=== PATIENT | female | born 1960 | race African-American/Black ===

== ENCOUNTER → 2016-05-15 | Outpatient (CLI) | payer SELFPAY | LOC: OD 12:36 | PROVIDERS: ATTEND Internal Medicine Pulmonary Disease | DX: R06.2 Wheezing (principal) | CPT/HCPCS: 36415; 82785 ==

== ENCOUNTER → 2016-05-29 | Outpatient (CLI) | payer OTHER ==
--- NOTE | 2016-05-29 11:28 | ST Modified Barium Swallow ---
Recommendation - Recommendations Recommendations: 1) Recommend continue current diet. 2) Encouraged pt to discuss "heartburn" like symptoms with primary care physician and possible medical management. SUMMARY: No penetration or aspiration observed during MBSS. No radiographic findings of pharyngeal residuals seen. Pt does report "heartburn" with need to frequently take Tums. Medical Diagnoses - Medical Diagnoses Medical Diagnosis Description & ICD-10 Code(s): cough r05, r06.83, j45.50 Other Medical Diagnoses/Co-Morbidities: asthma, diabetes, HTN, migraines ST Modified Barium Swallow - General Date: 05/29/16 Referring Physician: Dr Liao Risks/Precautions: None Date of Onset: 11/30/15 Reason for Referral: cough - History History obtained from: Patient -: Medical - Pt reports need for MBSS due to "asthma is really bad" and will wake her up in the middle of the night coughing as well as an "asthma attack" during MD visit. Pt reports coughing with meals (solids and liquids) "sometimes ", denies choking, denies globus sensation, reports most recent PNA in February of 2016, states most recent bronchitis approximately 1 year ago. Pt reports onset of symptoms approximately 6 months ago. PMHx: asthma, diabetes, HTN, osteoarthritis, migraines. Medications: per pt- duonebs, pulmicort, albuterol, metformin, singular, blood pressure pill pt could not recall. Allergies: percocet, lisinopril - Functional Status Prior Functional Status: INDEPENDENT: ADL, feeding, leisure/play Current Functional Limitations: ADL, feeding, leisure/play - Subjective Patient/caregiver goal(s): safe swallow, r/o aspiration Cognitive-Linguistic Function: WNL Speech Intelligibility: WNL Current Nutritional Means: PO Current PO diet: Regular Current symptoms: Coughing Pain: 2/5 - right knee - Objective Assessment: Upright, Left Lateral - Food Trials Used Food trials used: Thin liquids, Pureed, Regular The patient: Was Able to Self Feed - Oral-Motor Skills Dentition: Partial Velo-pharyngeal function: Unremarkable Laryngeal Function: Volitional Cough, Volitional Swallow - Assessment Oral prep: Normal Labial closure: Adequate Leakage: None Mastication: Adequate Lingual Movement: Normal Oral stage: Normal for this Procedure - Pharyngeal Stage Initiation of Pharyngeal Stage Reflex: Normal Decreased laryngeal elevation: No Reduced Velopharyngeal Closure: no Reduced pressure generation: No reduced tongue-based retraction: No Pre-swallow pooling in valleculae: None Pre-Swallow pooling in pyriforms: None Reduced Thyro-Hyoid approximation: No Reduced epiglottic excursion: No Reduced pharyngeal peristalsis/contraction: No Post-swallow residulas vallecular: None Post-Swallow residuals in pyriforms: None Reduced Cricopharyngeal opening: No - Fall Risk Assessment Medications/Conditions that increase fall risks include: Antidepressants, sedatives, anti-arrhythmic, diuretic, benzodiazipenes, neuroleptics. BP regulation problems, cardiac problems, balance or gait deficits, neurological problems. Is patient considered at risk for falls: no Fall Risk Actions Taken: No action needed - Behavioral Observations During evaluation process patient: was pleasant, was cooperative, able to answer questions, provided medical history - Treatment / Educational Needs: Treatment/Education Needs: Treatment consisted of patient education on the role of the Speech Pathologist. Patient's plan of care and golas were communicated as well as scheduling and attendance policies. Recommendations for initial home program were shared. Patient demonstrated understanding and verbalized agreement. - Impression/Summary Laryngeal Penetration: No Tracheal Aspiration: no Patient presents with: Normal swallow at eval - safe and effective swallow observed Risk of Aspiration: Minimal - Recommendations NPO: no Solid diet recommendations: Regular Liquid Diet Modification: Thin Strict aspiration precautions: No Pt/Family education and followup with MD: Yes Dysphagia therapy with [facility] COMMUNITY MANAGER: no Recommended techniques: Fully Upright During Meal Supervision: Independent Information, Precautions and Recommendations: Patient (Verbal) - Time Total Time: 20 - Plan of Care Strategies to optimize patient understanding include:: ongoing assessment of educational needs, implementation of educational strategies, and re-education. - - -: Thank you for the opportunity to work with this patient and his/her family. Should you have any questions about this patient's plan or progress, I can be reached at [phone]. Charge G Code? - - -: No
== END ==
LOC: RAD 07:59
PROVIDERS: ATTEND Internal Medicine Pulmonary Disease
DX: J45.50 Severe persistent asthma, uncomplicated (principal); R05 Cough; R06.83 Snoring
CPT/HCPCS: 74230

== ENCOUNTER → 2016-06-19 | Outpatient (CLI) | payer OTHER | LOC: OD 13:48 | PROVIDERS: ATTEND Internal Medicine | DX: M17.0 Bilateral primary osteoarthritis of knee (principal) ==

== ENCOUNTER 2016-08-01 16:00 | Emergency (ER) | payer OTHER ==
[2016-08-01] MEDS ORDERED: MAGNESIUM SULFATE/D5W 100 ML IV ONE (16:03)
[2016-08-01] MEDS ORDERED: ALBUTEROL SULFATE 0.083% NEB 2.5 MG/3 ML AMPUL NEB ONE (16:03)
[2016-08-01] MEDS ORDERED: IPRATROPIUM/ALBUTEROL 0.5-2.5 MG/3 ML AMPUL NEB ONE (16:03)
[2016-08-01] MEDS ORDERED: METHYLPREDNISOLONE INJ 125 MG/2 ML SDV IV ONE (16:04)
[2016-08-01] MEDS ORDERED: MAGNESIUM SULFATE/D5W 1 GM/100 ML RTUPB IV ONE (16:05)
[2016-08-01] MEDS ORDERED: METHYLPREDNISOLONE INJ 125 MG/2 ML SDV ONE (16:05)
[2016-08-01 16:31] LABS: ABSOLUTE EOSINOPHILS # (AUTO) 0.1 10^3/uL (0.0-0.6); ABSOLUTE LYMPHOCYTES (AUTO) 3.9 10^3/uL (0.5-4.7); ABSOLUTE MONOCYTES (AUTO) 0.4 10^3/uL (0.1-1.4); ABSOLUTE NEUT (AUTO) 2.8 10^3/uL (1.7-8.2); BASOPHILS % (AUTO) 0.4 % (0-2); EOSINOPHILS % (AUTO) 0.7 % (0-6); HEMATOCRIT 37.7 % (36.0-47.0); HGB HCT DIFFERENCE -1.7; LYMPHOCYTES % (AUTO) 54.9 % (13-45); MEAN CORPUSCULAR HEMOGLOBIN 21.6 pg (27.0-33.4); MEAN CORPUSCULAR HGB CONC 31.7 g/dL (32.0-36.0); MEAN CORPUSCULAR VOLUME 68 fl (80-97); MONOCYTES % (AUTO) 5.3 % (3-13); RED BLOOD COUNT 5.54 10^6/uL (3.72-5.28); RED CELL DISTRIBUTION WIDTH 16.4 % (11.5-14.0); SEGMENTED NEUTROPHILS % (AUTO) 38.7 % (42-78); WHITE BLOOD COUNT 7.2 10^3/uL (4.0-10.5)
[2016-08-01 16:32] LABS: VENOUS BLOOD BASE EXCESS 6.3 mmol/L; VENOUS BLOOD PCO2 39.9 mmHg (35-63); VENOUS BLOOD PH 7.49 (7.30-7.42)
[2016-08-01 16:43] LABS: ALANINE AMINOTRANSFERASE 29 U/L (9-52); ALBUMIN 4.4 g/dL (3.5-5.0); ALKALINE PHOSPHATASE 77 U/L (38-126); ANION GAP 13 (5-19); ASPARTATE AMINO TRANSFERASE 26 U/L (14-36); BILIRUBIN,DIRECT 0.4 mg/dL (0.0-0.4); BILIRUBIN,TOTAL 0.7 mg/dL (0.2-1.3); BLOOD UREA NITROGEN 17 mg/dL (7-20); CALCIUM 9.7 mg/dL (8.4-10.2); CARBON DIOXIDE 29 mmol/L (22-30); CHLORIDE 101 mmol/L (98-107); CREATININE RESULT 0.71 mg/dL (0.52-1.25); GLUCOSE 126 mg/dL (75-110); LIPASE 101.5 U/L (23-300); SODIUM 143.4 mmol/L (137-145); TOTAL PROTEIN 7.8 g/dL (6.3-8.2)
--- NOTE | 2016-08-01 17:24 | RADIOLOGY REPORT (SQ) ---
EXAM DESCRIPTION: CHEST SINGLE VIEW COMPLETED DATE/TIME: 08/01/2016 5:16 pm REASON FOR STUDY: sob COMPARISON: 06/27/2012 EXAM PARAMETERS: NUMBER OF VIEWS: One view. TECHNIQUE: Single frontal radiographic view of the chest acquired. RADIATION DOSE: NA LIMITATIONS: None. FINDINGS: LUNGS AND PLEURA: No opacities, masses or pneumothorax. No pleural effusion. MEDIASTINUM AND HILAR STRUCTURES: No masses. Contour normal. HEART AND VASCULAR STRUCTURES: Heart normal in size. Normal vasculature. BONES: No acute findings. HARDWARE: None in the chest. OTHER: No other significant finding. IMPRESSION: NO ACUTE RADIOGRAPHIC FINDING IN THE CHEST. TECHNICAL DOCUMENTATION: JOB ID: [id number]
[2016-08-01] MEDS ORDERED: PREDNISONE 20 MG TABLET PO ONE (19:08)
--- NOTE | 2016-08-01 19:12 | ER Document Report ---
ED General - General Chief Complaint: Shortness Of Breath Stated Complaint: DIFFICULTY BREATHING Time Seen by Provider: 08/01/16 16:03 TRAVEL OUTSIDE OF THE [place] IN LAST 30 DAYS: No - HPI Patient complains to provider of: Shortness of breath asthma exacerbation Notes: Patient was in the hospital performing lung functioning test when she started to have an eczema exacerbation. A rapid response was called patient was brought to the ER patient had tachypnea and audible wheezing. Patient was not having any pain time. Patient states that she has had PFT testing in the past. She has had a acute asthma exacerbation. Denies any recent travel denies any recent steroids. Denies any recent antibiotics. - Related Data Allergies/Adverse Reactions: No Known Allergies Allergy (Unverified 06/26/12 23:23) Past Medical History - Social History Smoking Status: Never Smoker Chew tobacco use (# tins/day): No Frequency of alcohol use: Rare Drug Abuse: None Family History: DM, Hypertension Pulmonary Medical History: Reports: Hx Asthma Neurological Medical History: Reports: Hx Migraine Endocrine Medical History: Reports: Hx Diabetes Mellitus Type 2 Past Surgical History: Reports: Hx Section - Immunizations Immunizations up to date: Yes Hx Diphtheria, Pertussis, Tetanus Vaccination: Yes Review of Systems - Review of Systems Constitutional: No symptoms reported EENT: No symptoms reported Cardiovascular: No symptoms reported Respiratory: Short of breath, Wheezing Gastrointestinal: No symptoms reported Genitourinary: No symptoms reported Female Genitourinary: No symptoms reported Musculoskeletal: No symptoms reported Skin: No symptoms reported Hematologic/Lymphatic: No symptoms reported Neurological/Psychological: No symptoms reported -: Yes All other systems reviewed and negative Physical Exam - Vital signs Vitals: Resp Pulse Ox 30 H 100 08/01/16 16:08 08/01/16 16:08 Interpretation: Normal - General General appearance: Appears well, Alert - HEENT Head: Normocephalic, Atraumatic Eyes: Normal Pupils: PERRL - Respiratory Respiratory status: Respiratory distress - Mild, Tachypnea Chest status: Nontender Breath sounds: Wheezing - Multiple Chest palpation: Normal - Cardiovascular Rhythm: Regular Heart sounds: Normal auscultation Murmur: No - Abdominal Inspection: Normal Distension: No distension Bowel sounds: Normal Tenderness: Nontender Organomegaly: No organomegaly - Back Back: Normal, Nontender - Extremities General upper extremity: Normal inspection, Nontender, Normal color, Normal ROM , Normal temperature General lower extremity: Normal inspection, Nontender, Normal color, Normal ROM , Normal temperature, Normal weight bearing. No: Espinoza's sign - Neurological Neuro grossly intact: Yes Cognition: Normal Orientation: AAOx4 [place] Coma Scale Eye Opening: Spontaneous [place] Coma Scale Verbal: Oriented [place] Coma Scale Motor: Obeys Commands [place] Coma Scale Total: 15 Speech: Normal Motor strength normal: LUE, RUE, LLE, RLE Sensory: Normal - Psychological Associated symptoms: Normal affect, Normal mood - Skin Skin Temperature: Warm Skin Moisture: Dry Skin Color: Normal Course - Re-evaluation Re-evalutation: 08/01/16 22:27 Patient coming in for his asthma exacerbation. Patient feeling much better after breathing treatments and steroids here. Patient states that her wheezing continues however this is how she normally is and feel that she will be safe to be discharged home. Patient was given a prescription for prednisone encouraged to follow-up with her primary care physician - Vital Signs Vital signs: Temp Pulse Resp BP Pulse Ox 21 H 148/94 H 93 08/01/16 19:06 08/01/16 19:05 08/01/16 19:06 - Laboratory Result Diagrams: 08/01/16 16:20 08/01/16 16:20 Laboratory results interpreted by me: 08/01/16 08/01/16 08/01/16 16:20 16:20 16:20 RBC 5.54 H MCV 68 L MCH 21.6 L MCHC 31.7 L RDW 16.4 H Seg Neutrophils % 38.7 L Lymphocytes % 54.9 H VBG pH 7.49 H Glucose 126 H Critical Care Note - Critical Care Note Total time excluding time spent on procedures (mins): 35 Comments: Multiple re-evaluations for asthma exacerbation Discharge - Discharge Clinical Impression: Asthma exacerbation Condition: Good Disposition: HOME, SELF-CARE Instructions: Asthma ([facility]) Additional Instructions: Your examination today is consistent with an asthma exacerbation. We will start you on prednisone. I will highly recommend using her albuterol at least every 4 hours for the next 5 days. Please follow-up with your physician. Prescriptions: Prednisone [Deltasone 20 mg Tablet] 3 tab PO DAILY 5 Days Referrals: NATALIE PORRAS MD [Primary Care Provider] - Follow up in 3-5 days
[2016-08-01 19:15] VITALS: BP 148/94
--- NOTE | 2016-08-01 20:05 | EKG REPORT ---
SEVERITY:- OTHERWISE NORMAL ECG - SINUS RHYTHM BORDERLINE LEFT AXIS DEVIATION : Confirmed by: Gaudencio Batres MD 01-Aug-2016 20:04:36
== END 2016-08-01 19:50 | disposition home or self-care (01) ==
LOC: ER 16:00
DX: J45.901 Unspecified asthma with (acute) exacerbation (principal); R06.02 Shortness of breath
CPT/HCPCS: 93005; 94640 ×2; 99291; 96375; 96365; 36415; 83690; 83735; 85025; 80053; 84484; 82803; 71010; 93010; J2930; J3475; J7620

== ENCOUNTER → 2016-08-01 | Outpatient (CLI) | payer OTHER ==
[~2016-08-01] MED LIST: ALBUTEROL SULFATE 0.083% NEB 2.5 MG/3 ML AMPUL NEB ONE
--- NOTE | 2016-08-03 08:39 | PULMONARY FUNCTION TEST ---
DATE OF SERVICE: 08/01/2016 THE VITAL CAPACITY IS MODERATELY DECREASED. THE EXPIRATORY FLOW RATES ARE SEVERELY DECREASED. THE FEV1/VC IS 62%, PREDICTED: 84% AFTER BRONCHODILATOR, EXPIRATORY FLOW RATES SHOW NO SIGNIFICANT CHANGE. IMPRESSION: GOOD PATIENT EFFORT. SEVERE OBSTRUCTIVE DEFECT. CC: VIOLET RING MD > ANURAGD
== END ==
LOC: RT 13:28
PROVIDERS: ATTEND General Practice
DX: J45.909 Unspecified asthma, uncomplicated (principal)
CPT/HCPCS: 94060

== ENCOUNTER 2016-08-15 11:16 | Inpatient (IN) | payer OTHER ==
[2016-08-15] MEDS ORDERED: IPRATROPIUM/ALBUTEROL 0.5-2.5 MG/3 ML AMPUL NEB ONE ×2 (11:24→11:44)
[2016-08-15] MEDS ORDERED: METHYLPREDNISOLONE INJ 125 MG/2 ML SDV IV ONE (11:27)
--- NOTE | 2016-08-15 11:32 | ER Document Report ---
ED Respiratory Problem - General Stated Complaint: BREATHING TROUBLES Time Seen by Provider: 08/15/16 11:26 Mode of Arrival: Ambulatory Information source: Patient Notes: 55-year-old female with history of asthma presents with increasing shortness of breath for the last 4 days. She had been seen in the emergency department in [place] 3 days ago and slightly improved but never really significantly. She is on prednisone 60 mg today. She is having cough with some purulent sputum as well. There is no fever. She is limited in history secondary to the severe shortness of breath. She does report that approximately 2 weeks ago is when symptoms started after she had an asthma exacerbation from pulmonary function tests. Any specific chest pain. TRAVEL OUTSIDE OF THE U[place] IN LAST 30 DAYS: No - Related Data Allergies/Adverse Reactions: lisinopril Allergy (Verified 08/15/16 12:25) oxycodone [From Percocet] Allergy (Verified 08/15/16 12:25) Past Medical History - Social History Smoking Status: Never Smoker Family History: DM, Hypertension Pulmonary Medical History: Reports: Hx Asthma Neurological Medical History: Reports: Hx Migraine Endocrine Medical History: Reports: Hx Diabetes Mellitus Type 2 Past Surgical History: Reports: Hx Section - Immunizations Immunizations up to date: Yes Hx Diphtheria, Pertussis, Tetanus Vaccination: Yes Review of Systems - Review of Systems -: Yes All other systems reviewed and negative Physical Exam - Vital signs Vitals: Resp Pulse Ox 22 H 96 08/15/16 11:28 08/15/16 11:28 Notes: Pulse ox 99% blood pressure 125/64 normal temperature - Notes Notes: Physical Exam: GENERAL: VS as per nursing doc. Well-appearing, well-nourished and in moderate respiratory acute distress. HEAD: Atraumatic, normocephalic. EYES: Pupils equal round and reactive to light, extraocular movements intact, sclera anicteric, no conjunctival injection or discharge. ENT: Nares patent, oropharynx clear without exudates. Moist mucous membranes. NECK: Normal range of motion, supple without lymphadenopathy. No JVD. LUNGS: Breath sounds are decreased significantly bilaterally with inspiratory and expiratory wheezing HEART: Normal S1S2. Regular rate and rhythm without murmurs. Equal peripheral pulses. ABDOMEN: Soft, non-tender. EXTREMITIES: Normal range of motion. No calf tenderness. Negative Homans. No edema. NEUROLOGICAL: Cranial nerves grossly intact. Normal speech. Normal sensory and motor exams. No gross cerebellar abnormalities. PSYCH: Normal mood, normal affect. SKIN: Warm, dry, no cyanosis, no splinter hemorrhages. Cap refill < 2 sec. Course - Re-evaluation Re-evalutation: 08/15/16 12:49 Patient is still very tachypneic overall but has improved. Magnesium has been ordered which has helped in the past. Reports only a little purulent sputum swallow discussed with her admitting doctor regarding this. He has completed her continuous nebulizer, ABG is pending. 08/15/16 14:[address] Fischer regarding admission. He is in patient's room and will call me back. 08/15/16 15:37 Dr. Osborn who will admit the patient to [facility]. Patient after continuous nebs approximately 12.5 mg total of albuterol and Atrovent has improved but still has significant wheezing overall. Breath sounds are decreased still but she has improved significantly. - Vital Signs Vital signs: Temp Pulse Resp BP Pulse Ox 11 L 131/81 H 89 L 08/15/16 14:02 08/15/16 14:02 08/15/16 14:02 - Laboratory Result Diagrams: 08/15/16 11:33 08/15/16 11:33 Laboratory results interpreted by me: 08/15/16 08/15/16 08/15/16 11:33 11:33 13:35 WBC 16.5 H Hgb 11.2 L Hct 35.7 L MCV 69 L MCH 21.5 L MCHC 31.4 L RDW 16.5 H Absolute Neutrophils 10.8 H Carbonic Acid 0.90 L ABG pH 7.62 H* ABG pCO2 29.9 L ABG pO2 68.8 L ABG HCO3 30.0 H ABG Total CO2 30.9 H Glucose 211 H Urine Ketones Urine Ascorbic Acid 08/15/16 14:40 WBC Hgb Hct MCV MCH MCHC RDW Absolute Neutrophils Carbonic Acid ABG pH ABG pCO2 ABG pO2 ABG HCO3 ABG Total CO2 Glucose Urine Ketones TRACE H Urine Ascorbic Acid 40 H - EKG Interpretation by Me EKG shows normal: Sinus rhythm - Normal sinus rhythm rate 73 no evidence of ischemia - Consults Dr. Wells Time consulted: 15:30 - Dr. Wells to admit Consulted provider: will see as inpatient Critical Care Note - Critical Care Note Total time excluding time spent on procedures (mins): 35 Discharge - Discharge Clinical Impression: Asthma exacerbation Condition: Fair Disposition: ADMITTED INPATIENT Admitting Provider: Amado Fernandez Admitted: AGNES
[2016-08-15 12:02] LABS: ABSOLUTE LYMPHOCYTES (AUTO) 4.5 10^3/uL (0.5-4.7); ABSOLUTE MONOCYTES (AUTO) 1.1 10^3/uL (0.1-1.4); ABSOLUTE NEUT (AUTO) 10.8 10^3/uL (1.7-8.2); BASOPHILS % (AUTO) 0.2 % (0-2); EOSINOPHILS % (AUTO) 0.1 % (0-6); HEMATOCRIT 35.7 % (36.0-47.0); HEMOGLOBIN 11.2 g/dL (12.0-15.5); HGB HCT DIFFERENCE -2.1; LYMPHOCYTES % (AUTO) 27.4 % (13-45); MEAN CORPUSCULAR HEMOGLOBIN 21.5 pg (27.0-33.4); MEAN CORPUSCULAR HGB CONC 31.4 g/dL (32.0-36.0); MEAN CORPUSCULAR VOLUME 69 fl (80-97); MONOCYTES % (AUTO) 6.8 % (3-13); RED BLOOD COUNT 5.21 10^6/uL (3.72-5.28); RED CELL DISTRIBUTION WIDTH 16.5 % (11.5-14.0); SEGMENTED NEUTROPHILS % (AUTO) 65.5 % (42-78); WHITE BLOOD COUNT 16.5 10^3/uL (4.0-10.5)
[2016-08-15] MEDS ORDERED: ALBUTEROL SULFATE 0.083% NEB 2.5 MG/3 ML AMPUL NEB ONE ×2 (12:09→12:12)
[2016-08-15 12:28] LABS: ANION GAP 13 (5-19); BLOOD UREA NITROGEN 16 mg/dL (7-20); CALCIUM 9.5 mg/dL (8.4-10.2); CARBON DIOXIDE 30 mmol/L (22-30); CHLORIDE 98 mmol/L (98-107); CREATININE RESULT 0.66 mg/dL (0.52-1.25); GLUCOSE 211 mg/dL (75-110); SODIUM 140.8 mmol/L (137-145)
[2016-08-15] MEDS ORDERED: MAGNESIUM SULFATE/D5W 100 ML IV PRN (12:38)
--- NOTE | 2016-08-15 12:41 | RADIOLOGY REPORT (SQ) ---
EXAM DESCRIPTION: CHEST SINGLE VIEW COMPLETED DATE/TIME: 08/15/2016 12:22 pm REASON FOR STUDY: Dyspnea COMPARISON: None. NUMBER OF VIEWS: One view. TECHNIQUE: Single frontal radiographic view of the chest acquired. LIMITATIONS: None. FINDINGS: LUNGS AND PLEURA: Subsegmental parenchymal density left lower lobe. MEDIASTINUM AND HILAR STRUCTURES: No masses. Contour normal. HEART AND VASCULAR STRUCTURES: Heart enlarged without failure. Normal vasculature. BONES: No acute findings. HARDWARE: None in the chest. OTHER: No other significant finding. IMPRESSION: Atelectasis or early pneumonia left lower lobe. Clinical correlation is needed. TECHNICAL DOCUMENTATION: JOB ID: [id number] [employer]- All Rights Reserved
[2016-08-15] MEDS ORDERED: LORAZEPAM INJ 2 MG/1 ML VIAL IV ONE (12:55)
[2016-08-15 13:58] LABS: ARTERIAL BLOOD BASE EXCESS 8.8 mmol/L; ARTERIAL BLOOD O2 SATURATION 96.5 % (94-98)
[2016-08-15 15:04] LABS: APPEARANCE,URINE CLEAR; BILIRUBIN,URINE NEGATIVE (NEGATIVE); GLUCOSE, URINE NEGATIVE (NEGATIVE); KETONES,URINE TRACE mg/dL (NEGATIVE); LEUKOCYTE ESTERASE,URINE NEGATIVE (NEGATIVE); NITRITE,URINE NEGATIVE (NEGATIVE); PROTEIN,URINE NEGATIVE (NEGATIVE); URINE SPECIFIC GRAVITY 1.015; UROBILINOGEN,URINE NEGATIVE mg/dL (<2.0)
--- NOTE | 2016-08-15 16:19 | EKG REPORT ---
SEVERITY:- NORMAL ECG - SINUS RHYTHM : Confirmed by: Mary Gabriel MD 15-Aug-2016 16:18:38
[2016-08-15] MEDS ORDERED: ACETAMINOPHEN 325 MG TABLET PO PRN (17:00)
[2016-08-15] MEDS ORDERED: ZOLPIDEM TARTRATE 5 MG TABLET PO PRN (17:00)
[2016-08-15] MEDS ORDERED: DEXTROSE 40% GEL 15 GM TUBE PO PRN (17:34)
[2016-08-15] MEDS ORDERED: GLUCAGON,HUMAN RECOMB 1 MG INJ IM PRN (17:34)
[2016-08-15] MEDS ORDERED: DEXTROSE 50%-WATER SYRINGE 25 GM/50 ML DOSE IV PRN (17:34)
[2016-08-15] MEDS ORDERED: DEXTROSE 40% GEL 15 GM TUBE X 2 PO PRN (17:34)
[2016-08-15] MEDS ORDERED: DEXTROSE 50%-WATER SYRINGE 12.5 GM/25 ML DOSE IV PRN (17:34)
--- NOTE | 2016-08-15 17:38 | PDOC H&P ---
History of Present Illness Admission Date/PCP: 08/15/16 15:48 NATALIE PORRAS Patient complains of: Severe dyspnea, wheezes, cough with sputum production- worse int he past 5 days. History of Present Illness: NOEMI ALAMO is a 55 year old female with hx of severe persistent asthma/ DM2/HTN/Tuan. 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 She satrted having cough- productive of brownish sputum, severe dyspne and wheezes. She went to ER in [place] 3 days ago and was discharged on prednisone 60 mg qd. She started having worsening of her symptoms on arrival to [place], hence she came to ER for evaluation and mgt. Past Medical History Cardiac Medical History: Reports: Hypertension Pulmonary Medical History: Reports: Asthma Neurological Medical History: Reports: Migraine Endocrine Medical History: Reports: Diabetes Mellitus Type 2 Past Surgical History Past Surgical History: Reports: Section Social History Smoking Status: Never Smoker - Advance Directive Resuscitation Status: Full Code Family History Family History: DM, Hypertension Parental Family History Reviewed: Yes Children Family History Reviewed: Yes Sibling(s) Family History Reviewed.: Yes Medication/Allergy Home Medications: Acetaminophen with Codeine [Tylenol #3 Tablet] 1 tab PO Q12HP PRN 08/15/16 Albuterol Sulfate [Ventolin Hfa] 2 puff IH Q4HP PRN 08/15/16 Budesonide [Pulmicort Neb 0.5 mg/2 ml Ampul] 2 ml IH QPM 08/15/16 Budesonide/Formoterol Fumarate [Symbicort HFA 160-4.5 mcg Inhaler 6 gm] 2 puff IH Q12 08/15/16 Cholecalciferol (Vitamin D3) [Vitamin D3 2000 unit Tablet] 2,000 unit PO QPM 09/24 Cyclobenzaprine HCl [Flexeril 10 mg Tablet] 10 mg PO QHS 08/15/16 Furosemide [Lasix 20 mg Tablet] 20 mg PO QPM 08/15/16 Ibuprofen [Motrin 800 mg Tablet] 800 mg PO Q8HP PRN 08/15/16 Ipratropium/Albuterol Sulfate [Duoneb 3 ml Ampul] 3 ml NEB RTQ6HP PRN 08/15/16 Losartan/Hydrochlorothiazide [Hyzaar 100-25 Tablet] 1 tab PO QPM 08/15/16 Metformin HCl [Glucophage] 1,000 mg PO BID 08/15/16 Montelukast Sodium [Singulair 10 mg Tablet] 10 mg PO QPM 08/15/16 Prednisone [Deltasone 20 mg Tablet] 60 mg PO DAILY 08/15/16 Tiotropium Br/Olodaterol HCl [Stiolto Respimat Inhal [place]] 2 puff IH QPM Allergies/Adverse Reactions: lisinopril Allergy (Verified 08/15/16 12:25) oxycodone [From Percocet] Allergy (Verified 08/15/16 12:25) Review of Systems All systems: reviewed and no additional remarkable complaints except as stated Constitutional: PRESENT: as per HPI Eyes: PRESENT: as per HPI Nose, Mouth, and Throat: PRESENT: as per HPI Cardiovascular: PRESENT: dyspnea on exertion, edema Respiratory: PRESENT: dyspnea Gastrointestinal: PRESENT: as per HPI Genitourinary: PRESENT: as per HPI Musculoskeletal: PRESENT: as per HPI Integumentary: PRESENT: as per HPI Neurological: PRESENT: as per HPI Psychiatric: PRESENT: as per HPI Endocrine: PRESENT: as per HPI Hematologic/Lymphatic: PRESENT: as per HPI Allergic/Immunologic: PRESENT: as per HPI Physical Exam Vital Signs: Temp Pulse Resp BP Pulse Ox 98.3 F 21 H 136/93 H 99 08/15/16 15:48 08/15/16 16:51 08/15/16 16:51 08/15/16 16:51 Intake & Output 08/14/16 08/15/16 08/16/16 06:59 06:59 06:59 Weight 131.542 kg General appearance: PRESENT: cooperative, morbidly obese, severe distress Head exam: PRESENT: atraumatic, normocephalic Eye exam: PRESENT: EOMI, PERRLA Ear exam: PRESENT: normal external ear exam Mouth exam: PRESENT: moist, neck supple, tongue midline Neck exam: PRESENT: full ROM Respiratory exam: PRESENT: crackles, decreased breath sounds, wheezes Cardiovascular exam: PRESENT: +S1, +S2 Pulses: PRESENT: +2 pedal pulses bilateral GI/Abdominal exam: PRESENT: normal bowel sounds, soft Rectal exam: PRESENT: deferred Extremities exam: PRESENT: full ROM Musculoskeletal exam: PRESENT: full ROM Neurological exam: PRESENT: alert, awake, oriented to person, oriented to place , oriented to time, CN II-XII grossly intact Psychiatric exam: PRESENT: normal mood Results Impressions: Chest X-Ray 08/15/16 11:26 IMPRESSION: Atelectasis or early pneumonia left lower lobe. Clinical correlation is needed. Assessment & Plan - Diagnosis (1) Acute asthma exacerbation Qualifiers: Asthma severity: severe persistent Qualified Code(s): J45.51 - Severe persistent asthma with (acute) exacerbation Is this a current diagnosis for this admission?: YesPlan: Ct with Oxygen 2 l/min; Duonebs q4h prn; Xopenex nebs 1.25 mg q6h; Solumedrol 80 mg q6h IV; Levaquin 500mg qd IV; Symbicort 160/4.5 2 puffs BID; Pulmicort nebs 2ml qpm; Stiolto Respimat 2 puffs daily; Singulair 10 mg qd po. (2) Pneumonia Qualifiers: Pneumonia type: due to unspecified organism Laterality: left Lung location: lower lobe of lung Qualified Code(s): J18.1 - Lobar pneumonia, unspecified organism Is this a current diagnosis for this admission?: YesPlan: Ct with Levaquin 500 mg qd po; Tylenol 650 mg q4h prn po; F/u blood culture and sputum culture. (3) Diabetes mellitus type 2 in obese Is this a current diagnosis for this admission?: YesPlan: Ct with Metformin 1000mg BID po;Accucheck QAC, QHS with slidding scale with humalog insulin [facility] protocol;1800 calorie ADA diet. (4) Hypertension Qualifiers: Hypertension type: essential hypertension Qualified Code(s): I10 - Essential (primary) hypertension Is this a current diagnosis for this admission?: YesPlan: Ct with Losartan/HCTZ 100/25 1 qd po; 2g sodium diet. (5) Leg swelling Is this a current diagnosis for this admission?: YesPlan: Ct with Lasix 20 mg qd po; elevate legs. (6) Osteoarthritis Qualifiers: Osteoarthritis location: knee Laterality: bilateral Is this a current diagnosis for this admission?: YesPlan: Ct with Tylenol #3 1 BID po prn; Flexeril 5 mg qhs . (7) Vitamin D deficiency Is this a current diagnosis for this admission?: YesPlan: Ct with Vitamin D 2000iu qd po. (8) DVT prophylaxis Is this a current diagnosis for this admission?: YesPlan: Ct with Lovenox 40 mg qd subcut; SCD. - Time Time Spent: 30 to 50 Minutes Medications reviewed and adjusted accordingly: Yes Anticipated discharge: Home Within: within 72 hours - Inpatient Certification Medical Necessity: Failure to Improve With Outpatient Therapy, Significant Comorbidiites Make Outpatient Treatment Too Risky, Need Close Monitoring Due to Risk of Patient Decompensation, Need for IV Antibiotics
[2016-08-15] MEDS ORDERED: (PENDING PHARMACY ID) (Cholecalciferol (Vitamin D3) [Vitamin D3 2000 Unit Tablet] 2,000 UN PO SCH (18:00)
[2016-08-15] MEDS ORDERED: METHYLPREDNISOLONE INJ 40 MG/1 ML SDV IV SCH (18:00)
[2016-08-15] MEDS ORDERED: (PENDING PHARMACY ID) (Tiotropium Br/Olodaterol Hcl [Stiolto Respimat Inhal Spray] 2 PUFF) IH SCH (18:00)
[2016-08-15] MEDS ORDERED: METHYLPREDNISOLONE INJ 125 MG/2 ML SDV IV SCH (18:00)
[2016-08-15] MEDS ORDERED: (PENDING PHARMACY ID) (Losartan/Hydrochlorothiazide [Hyzaar 100-25 Tablet] 1 TAB) PO SCH (18:00)
[2016-08-15] MEDS: INSULIN LISPRO 100 UNIT/ML 3 ML VIAL SUBCUT PRN ×2 (18:13→22:18)
[2016-08-15] MEDS: LEVOFLOXACIN 500 MG/D5W RTU 500 MG/100 ML RTUPB IV SCH (18:17)
[2016-08-15] MEDS: LOSARTAN POTASSIUM 50 MG TABLET PO SCH (18:18)
[2016-08-15] MEDS: CHOLECALCIFEROL (D3) 1,000 UNIT TABLET PO SCH (18:18)
[2016-08-15] MEDS: MONTELUKAST SODIUM 10 MG TABLET PO SCH (18:19)
[2016-08-15] MEDS: METFORMIN HCL 500 MG TABLET PO SCH (18:19)
[2016-08-15] MEDS: IBUPROFEN 800 MG TABLET PO PRN (18:19)
[2016-08-15] MEDS: HYDROCHLOROTHIAZIDE 25 MG TABLET PO SCH (18:19)
[2016-08-15] MEDS: METHYLPREDNISOLONE INJ 125 MG/2 ML SDV IV SCH ×2 (18:21→23:24)
[2016-08-15] MEDS: FUROSEMIDE 20 MG TABLET PO SCH (18:21)
[2016-08-15] MEDS ORDERED: ENOXAPARIN SODIUM INJ 40 MG/0.4 ML DISP.SYRIN SUBCUT ONE (18:30)
[2016-08-15] MEDS: LEVALBUTEROL HCL NEB 1.25 MG/3 ML AMPUL NEB SCH (19:52)
[2016-08-15] MEDS: CYCLOBENZAPRINE HCL 10 MG TABLET PO SCH (22:18)
[2016-08-16] MEDS: IPRATROPIUM/ALBUTEROL 0.5-2.5 MG/3 ML AMPUL NEB PRN (00:09)
[2016-08-16] MEDS: LEVALBUTEROL HCL NEB 1.25 MG/3 ML AMPUL NEB SCH ×4 (02:04→19:40)
[2016-08-16 04:36] LABS: ABSOLUTE LYMPHOCYTES (AUTO) 1.6 10^3/uL (0.5-4.7); ABSOLUTE MONOCYTES (AUTO) 0.4 10^3/uL (0.1-1.4); BASOPHILS % (AUTO) 0.3 % (0-2); HEMATOCRIT 35.2 % (36.0-47.0); HEMOGLOBIN 10.8 g/dL (12.0-15.5); HGB HCT DIFFERENCE -2.8; LYMPHOCYTES % (AUTO) 10.3 % (13-45); MEAN CORPUSCULAR HEMOGLOBIN 21.5 pg (27.0-33.4); MEAN CORPUSCULAR HGB CONC 30.7 g/dL (32.0-36.0); MEAN CORPUSCULAR VOLUME 70 fl (80-97); MONOCYTES % (AUTO) 2.9 % (3-13); RED BLOOD COUNT 5.03 10^6/uL (3.72-5.28); RED CELL DISTRIBUTION WIDTH 15.8 % (11.5-14.0); SEGMENTED NEUTROPHILS % (AUTO) 86.5 % (42-78); WHITE BLOOD COUNT 15.1 10^3/uL (4.0-10.5)
[2016-08-16 04:41] LABS: ALANINE AMINOTRANSFERASE 24 U/L (9-52); ALBUMIN 3.8 g/dL (3.5-5.0); ALKALINE PHOSPHATASE 84 U/L (38-126); ANION GAP 15 (5-19); ASPARTATE AMINO TRANSFERASE 14 U/L (14-36); BILIRUBIN,DIRECT 0.3 mg/dL (0.0-0.4); BILIRUBIN,TOTAL 0.4 mg/dL (0.2-1.3); BLOOD UREA NITROGEN 21 mg/dL (7-20); CALCIUM 9.5 mg/dL (8.4-10.2); CARBON DIOXIDE 27 mmol/L (22-30); CHLORIDE 98 mmol/L (98-107); CREATININE RESULT 0.81 mg/dL (0.52-1.25); Direct HDL 59 mg/dL (>40); GLUCOSE 318 mg/dL (75-110); POTASSIUM 4.6 mmol/L (3.6-5.0); SODIUM 139.9 mmol/L (137-145); TRIGLYCERIDES 107 mg/dL (<150)
[2016-08-16 04:52] LABS: DIRECT LDL 71 mg/dL (<100)
[2016-08-16] MEDS: METHYLPREDNISOLONE INJ 125 MG/2 ML SDV IV SCH ×4 (06:13→23:09)
[2016-08-16] MEDS: LANSOPRAZOLE 30 MG TAB.RAP.DR PO SCH (06:14)
[2016-08-16] MEDS: INSULIN LISPRO 100 UNIT/ML 3 ML VIAL SUBCUT PRN ×4 (07:55→22:20)
[2016-08-16] MEDS: ENOXAPARIN SODIUM INJ 40 MG/0.4 ML DISP.SYRIN SUBCUT SCH (07:55)
[2016-08-16] MEDS ORDERED: INSULIN LISPRO 100 UNIT/ML 3 ML VIAL SUBCUT SCH (08:00)
[2016-08-16] MEDS: BUDESONIDE NEB 0.5 MG/2 ML AMPUL NEB SCH (08:20)
[2016-08-16] MEDS: METFORMIN HCL 500 MG TABLET PO SCH ×2 (09:09→17:37)
--- NOTE | 2016-08-16 13:12 | PDOC PROGRESS REPORT ---
Subjective Progress Note for:: 08/16/16 Subjective:: She is feeling better; dyspnea and wheezes have decreased .Ct to monitor her at [facility]. Physical Exam Vital Signs: Temp Pulse Resp BP Pulse Ox 98.2 F 81 17 122/68 96 08/16/16 11:32 08/16/16 11:32 08/16/16 11:32 08/16/16 11:32 08/16/16 11:32 Intake & Output 08/15/16 08/16/16 08/17/16 06:59 06:59 06:59 Intake Total 932 Balance 932 Weight 132.3 kg General appearance: PRESENT: mild distress, morbidly obese Head exam: PRESENT: atraumatic, normocephalic Eye exam: PRESENT: EOMI, PERRLA Ear exam: PRESENT: normal external ear exam, TM's normal bilaterally Mouth exam: PRESENT: moist, neck supple, tongue midline Neck exam: PRESENT: full ROM Respiratory exam: PRESENT: decreased breath sounds, symmetrical, wheezes Cardiovascular exam: PRESENT: +S1, +S2 Pulses: PRESENT: +2 pedal pulses bilateral GI/Abdominal exam: PRESENT: soft Rectal exam: PRESENT: deferred Extremities exam: PRESENT: full ROM Musculoskeletal exam: PRESENT: ambulatory Neurological exam: PRESENT: alert, awake, oriented to person, oriented to place , oriented to time, CN II-XII grossly intact Psychiatric exam: PRESENT: normal mood Results Laboratory Results: 08/16/16 03:47 08/16/16 03:47 08/16/16 08/16/16 08/16/16 03:47 03:47 03:47 WBC 15.1 H RBC 5.03 Hgb 10.8 L Hct 35.2 L MCV 70 L MCH 21.5 L MCHC 30.7 L RDW 15.8 H Plt Count 245 Seg Neutrophils % 86.5 H Lymphocytes % 10.3 L Monocytes % 2.9 L Eosinophils % 0.0 Basophils % 0.3 Absolute Neutrophils 13.0 H Absolute Lymphocytes 1.6 Absolute Monocytes 0.4 Absolute Eosinophils 0.0 Absolute Basophils 0.0 Sodium 139.9 Potassium 4.6 Chloride 98 Carbon Dioxide 27 Anion Gap 15 BUN 21 H Creatinine 0.81 Est GFR ( Amer) > 60 Est GFR (Non-Af Amer) > 60 Glucose 318 H Calcium 9.5 Total Bilirubin 0.4 AST 14 ALT 24 Alkaline Phosphatase 84 Total Protein 7.0 Albumin 3.8 Triglycerides 107 Cholesterol 167.10 LDL Cholesterol Direct 71 VLDL Cholesterol 21.0 HDL Cholesterol 59 TSH 0.36 L Impressions: Chest X-Ray 08/15/16 11:26 IMPRESSION: Atelectasis or early pneumonia left lower lobe. Clinical correlation is needed. Assessment & Plan - Diagnosis (1) Acute asthma exacerbation Qualifiers: Asthma severity: severe persistent Qualified Code(s): J45.51 - Severe persistent asthma with (acute) exacerbation Is this a current diagnosis for this admission?: YesPlan: Ct with Oxygen 2 l/min; Duonebs q4h prn; Xopenex nebs 1.25 mg q6h; Solumedrol 80 mg q6h IV; Levaquin 500mg qd IV; Symbicort 160/4.5 2 puffs BID; Pulmicort nebs 2ml qpm; Stiolto Respimat 2 puffs daily; Singulair 10 mg qd po. (2) Pneumonia Qualifiers: Pneumonia type: due to unspecified organism Laterality: left Lung location: lower lobe of lung Qualified Code(s): J18.1 - Lobar pneumonia, unspecified organism Is this a current diagnosis for this admission?: YesPlan: Ct with Levaquin 500 mg qd po; Tylenol 650 mg q4h prn po; F/u blood culture and sputum culture. (3) Diabetes mellitus type 2 in obese Is this a current diagnosis for this admission?: YesPlan: Ct with Metformin 1000mg BID po;Accucheck QAC, QHS with slidding scale with humalog insulin [facility] protocol;1800 calorie ADA diet. (4) Hypertension Qualifiers: Hypertension type: essential hypertension Qualified Code(s): I10 - Essential (primary) hypertension Is this a current diagnosis for this admission?: YesPlan: Ct with Losartan/HCTZ 100/25 1 qd po; 2g sodium diet. (5) Leg swelling Is this a current diagnosis for this admission?: YesPlan: Ct with Lasix 20 mg qd po; elevate legs. (6) Osteoarthritis Qualifiers: Osteoarthritis location: knee Laterality: bilateral Is this a current diagnosis for this admission?: YesPlan: Ct with Tylenol #3 1 BID po prn; Flexeril 5 mg qhs . (7) Vitamin D deficiency Is this a current diagnosis for this admission?: YesPlan: Ct with Vitamin D 2000iu qd po. (8) DVT prophylaxis Is this a current diagnosis for this admission?: YesPlan: Ct with Lovenox 40 mg qd subcut; SCD.
[2016-08-16] MEDS: MONTELUKAST SODIUM 10 MG TABLET PO SCH (17:37)
[2016-08-16] MEDS: LOSARTAN POTASSIUM 50 MG TABLET PO SCH (17:37)
[2016-08-16] MEDS: CHOLECALCIFEROL (D3) 1,000 UNIT TABLET PO SCH (17:37)
[2016-08-16] MEDS: LEVOFLOXACIN 500 MG/D5W RTU 500 MG/100 ML RTUPB IV SCH (17:37)
[2016-08-16] MEDS: FUROSEMIDE 20 MG TABLET PO SCH (17:37)
[2016-08-16] MEDS: HYDROCHLOROTHIAZIDE 25 MG TABLET PO SCH (17:37)
[2016-08-16] MEDS: CYCLOBENZAPRINE HCL 10 MG TABLET PO SCH (22:20)
[2016-08-17] MEDS: LEVALBUTEROL HCL NEB 1.25 MG/3 ML AMPUL NEB SCH ×4 (02:25→19:57)
[2016-08-17] MEDS: IPRATROPIUM/ALBUTEROL 0.5-2.5 MG/3 ML AMPUL NEB PRN (04:16)
[2016-08-17 05:02] LABS: HEMATOCRIT 35.9 % (36.0-47.0); HEMOGLOBIN 11.1 g/dL (12.0-15.5); HGB HCT DIFFERENCE -2.6; MEAN CORPUSCULAR HEMOGLOBIN 21.6 pg (27.0-33.4); MEAN CORPUSCULAR HGB CONC 30.8 g/dL (32.0-36.0); MEAN CORPUSCULAR VOLUME 70 fl (80-97); RED BLOOD COUNT 5.13 10^6/uL (3.72-5.28); RED CELL DISTRIBUTION WIDTH 16.2 % (11.5-14.0); WHITE BLOOD COUNT 18.8 10^3/uL (4.0-10.5)
[2016-08-17] MEDS: LANSOPRAZOLE 30 MG TAB.RAP.DR PO SCH (05:09)
[2016-08-17] MEDS: METHYLPREDNISOLONE INJ 125 MG/2 ML SDV IV SCH ×4 (05:10→23:37)
[2016-08-17 05:15] LABS: ALANINE AMINOTRANSFERASE 20 U/L (9-52); ALBUMIN 3.7 g/dL (3.5-5.0); ALKALINE PHOSPHATASE 81 U/L (38-126); ANION GAP 13 (5-19); ASPARTATE AMINO TRANSFERASE 18 U/L (14-36); BILIRUBIN,DIRECT 0.5 mg/dL (0.0-0.4); BILIRUBIN,TOTAL 0.5 mg/dL (0.2-1.3); BLOOD UREA NITROGEN 27 mg/dL (7-20); CALCIUM 9.2 mg/dL (8.4-10.2); CARBON DIOXIDE 28 mmol/L (22-30); CHLORIDE 98 mmol/L (98-107); CREATININE RESULT 0.81 mg/dL (0.52-1.25); POTASSIUM 4.8 mmol/L (3.6-5.0); SODIUM 138.9 mmol/L (137-145); TOTAL PROTEIN 7.4 g/dL (6.3-8.2)
[2016-08-17 05:25] LABS: GLUCOSE 416 mg/dL (75-110)
[2016-08-17 05:38] LABS: BAND NEUTROPHILS % (MANUAL) 1 % (3-5); BASOPHILS % (MANUAL) 0 % (0-2); EOSINOPHILS % (MANUAL) 0 % (0-6); LYMPHOCYTES % (MANUAL) 11 % (13-45); TOTAL CELLS COUNTED 100
[2016-08-17 05:40] LABS: ANISOCYTOSIS 1+; HYPOCHROMASIA 1+; MICROCYTOSIS SLIGHT; POIKILOCYTOSIS SLIGHT; POLYCHROMASIA SLIGHT; TARGET CELLS SLIGHT; TOXIC GRANULATION 1+; TOXIC VACUOLATION PRESENT
[2016-08-17] MEDS: INSULIN LISPRO 100 UNIT/ML 3 ML VIAL SUBCUT PRN ×4 (05:41→22:09)
[2016-08-17] MEDS: BUDESONIDE NEB 0.5 MG/2 ML AMPUL NEB SCH (07:51)
[2016-08-17] MEDS: ENOXAPARIN SODIUM INJ 40 MG/0.4 ML DISP.SYRIN SUBCUT SCH (08:31)
[2016-08-17] MEDS: METFORMIN HCL 500 MG TABLET PO SCH ×2 (09:17→17:08)
--- NOTE | 2016-08-17 16:54 | PDOC PROGRESS REPORT ---
Subjective Progress Note for:: 08/17/16 Subjective:: She is feeling better; dyspnea and wheezes have decreased .Ct to monitor her at [facility].She has leukocytosis due to steroids; she has no fever and her vital signs are stable. Physical Exam Vital Signs: Temp Pulse Resp BP Pulse Ox 98.0 F 82 17 131/72 H 99 08/17/16 11:19 08/17/16 13:50 08/17/16 13:50 08/17/16 11:19 08/17/16 11:19 Intake & Output 08/16/16 08/17/16 08/18/16 06:59 06:59 06:59 Intake Total 932 2409 474 Balance 932 2409 474 Weight 132.3 kg 131.8 kg General appearance: PRESENT: mild distress, morbidly obese Head exam: PRESENT: atraumatic, normocephalic Eye exam: PRESENT: EOMI, PERRLA Ear exam: PRESENT: TM's normal bilaterally Mouth exam: PRESENT: moist, neck supple, tongue midline Respiratory exam: PRESENT: decreased breath sounds, stridor, wheezes Cardiovascular exam: PRESENT: +S1, +S2 Pulses: PRESENT: +2 pedal pulses bilateral GI/Abdominal exam: PRESENT: normal bowel sounds, soft Rectal exam: PRESENT: deferred Extremities exam: PRESENT: full ROM Musculoskeletal exam: PRESENT: full ROM Neurological exam: PRESENT: alert, awake, oriented to person, oriented to place , oriented to time, CN II-XII grossly intact Psychiatric exam: PRESENT: normal mood Results Laboratory Results: 08/17/16 04:03 08/17/16 04:03 08/17/16 08/17/16 04:03 04:03 WBC 18.8 H RBC 5.13 Hgb 11.1 L Hct 35.9 L MCV 70 L MCH 21.6 L MCHC 30.8 L RDW 16.2 H Plt Count 287 Seg Neutrophils % Not Reportable Lymphocytes % Not Reportable Monocytes % Not Reportable Eosinophils % Not Reportable Basophils % Not Reportable Absolute Neutrophils Not Reportable Absolute Lymphocytes Not Reportable Absolute Monocytes Not Reportable Absolute Eosinophils Not Reportable Absolute Basophils Not Reportable Sodium 138.9 Potassium 4.8 Chloride 98 Carbon Dioxide 28 Anion Gap 13 BUN 27 H Creatinine 0.81 Est GFR ( Amer) > 60 Est GFR (Non-Af Amer) > 60 Glucose 416 H* Calcium 9.2 Total Bilirubin 0.5 AST 18 ALT 20 Alkaline Phosphatase 81 Total Protein 7.4 Albumin 3.7 Impressions: Chest X-Ray 08/15/16 11:26 IMPRESSION: Atelectasis or early pneumonia left lower lobe. Clinical correlation is needed. Assessment & Plan - Diagnosis (1) Acute asthma exacerbation Qualifiers: Asthma severity: severe persistent Qualified Code(s): J45.51 - Severe persistent asthma with (acute) exacerbation Is this a current diagnosis for this admission?: YesPlan: Ct with Oxygen 2 l/min; Duonebs q4h prn; Xopenex nebs 1.25 mg q6h; Solumedrol 80 mg q6h IV; Levaquin 500mg qd po; Symbicort 160/4.5 2 puffs BID; Pulmicort nebs 2ml qpm; Stiolto Respimat 2 puffs daily; Singulair 10 mg qd po. (2) Pneumonia Qualifiers: Pneumonia type: due to unspecified organism Laterality: left Lung location: lower lobe of lung Qualified Code(s): J18.1 - Lobar pneumonia, unspecified organism Is this a current diagnosis for this admission?: YesPlan: Ct with Levaquin 500 mg qd po; Tylenol 650 mg q4h prn po; F/u blood culture and sputum culture. (3) Diabetes mellitus type 2 in obese Is this a current diagnosis for this admission?: YesPlan: Ct with Metformin 1000mg BID po;Accucheck QAC, QHS with slidding scale with humalog insulin [facility] protocol;1800 calorie ADA diet. (4) Hypertension Qualifiers: Hypertension type: essential hypertension Qualified Code(s): I10 - Essential (primary) hypertension Is this a current diagnosis for this admission?: YesPlan: Ct with Losartan/HCTZ 100/25 1 qd po; 2g sodium diet. (5) Leg swelling Is this a current diagnosis for this admission?: YesPlan: Ct with Lasix 20 mg qd po; elevate legs. (6) Osteoarthritis Qualifiers: Osteoarthritis location: knee Laterality: bilateral Is this a current diagnosis for this admission?: YesPlan: Ct with Tylenol #3 1 BID po prn; Flexeril 5 mg qhs . (7) Vitamin D deficiency Is this a current diagnosis for this admission?: YesPlan: Ct with Vitamin D 2000iu qd po. (8) DVT prophylaxis Is this a current diagnosis for this admission?: YesPlan: Ct with Lovenox 40 mg qd subcut; SCD.
[2016-08-17] MEDS: FUROSEMIDE 20 MG TABLET PO SCH (17:06)
[2016-08-17] MEDS: LEVOFLOXACIN 500 MG TABLET PO SCH (17:06)
[2016-08-17] MEDS: CHOLECALCIFEROL (D3) 1,000 UNIT TABLET PO SCH (17:06)
[2016-08-17] MEDS: MONTELUKAST SODIUM 10 MG TABLET PO SCH (17:06)
[2016-08-17] MEDS: LOSARTAN POTASSIUM 50 MG TABLET PO SCH (17:06)
[2016-08-17] MEDS: HYDROCHLOROTHIAZIDE 25 MG TABLET PO SCH (17:06)
[2016-08-17] MEDS: CYCLOBENZAPRINE HCL 10 MG TABLET PO SCH (22:09)
[2016-08-18] MEDS: LEVALBUTEROL HCL NEB 1.25 MG/3 ML AMPUL NEB SCH ×4 (01:48→20:16)
[2016-08-18 04:18] LABS: HEMATOCRIT 38.6 % (36.0-47.0); HEMOGLOBIN 11.6 g/dL (12.0-15.5); HGB HCT DIFFERENCE -3.8; MEAN CORPUSCULAR HGB CONC 30.1 g/dL (32.0-36.0); MEAN CORPUSCULAR VOLUME 70 fl (80-97); RED BLOOD COUNT 5.54 10^6/uL (3.72-5.28); RED CELL DISTRIBUTION WIDTH 16.3 % (11.5-14.0)
[2016-08-18 04:33] LABS: ALANINE AMINOTRANSFERASE 26 U/L (9-52); ALBUMIN 3.8 g/dL (3.5-5.0); ALKALINE PHOSPHATASE 79 U/L (38-126); ANION GAP 13 (5-19); ASPARTATE AMINO TRANSFERASE 25 U/L (14-36); BILIRUBIN,DIRECT 0.5 mg/dL (0.0-0.4); BILIRUBIN,TOTAL 0.6 mg/dL (0.2-1.3); BLOOD UREA NITROGEN 33 mg/dL (7-20); CALCIUM 9.2 mg/dL (8.4-10.2); CARBON DIOXIDE 29 mmol/L (22-30); CHLORIDE 95 mmol/L (98-107); GLUCOSE 368 mg/dL (75-110); POTASSIUM 4.7 mmol/L (3.6-5.0); SODIUM 136.8 mmol/L (137-145); TOTAL PROTEIN 7.3 g/dL (6.3-8.2)
[2016-08-18 04:47] LABS: BAND NEUTROPHILS % (MANUAL) 5 % (3-5); BASOPHILS % (MANUAL) 0 % (0-2); EOSINOPHILS % (MANUAL) 0 % (0-6); LYMPHOCYTES % (MANUAL) 8 % (13-45); TOTAL CELLS COUNTED 100
[2016-08-18 04:48] LABS: ANISOCYTOSIS 1+; MICROCYTOSIS 2+; POIKILOCYTOSIS 1+; POLYCHROMASIA SLIGHT; TARGET CELLS 1+; TOXIC VACUOLATION PRESENT
[2016-08-18] MEDS: LANSOPRAZOLE 30 MG TAB.RAP.DR PO SCH (05:28)
[2016-08-18] MEDS: METHYLPREDNISOLONE INJ 125 MG/2 ML SDV IV SCH ×3 (05:28→17:28)
[2016-08-18] MEDS: INSULIN LISPRO 100 UNIT/ML 3 ML VIAL SUBCUT PRN ×4 (07:18→22:06)
[2016-08-18] MEDS: ENOXAPARIN SODIUM INJ 40 MG/0.4 ML DISP.SYRIN SUBCUT SCH (07:18)
[2016-08-18] MEDS: BUDESONIDE NEB 0.5 MG/2 ML AMPUL NEB SCH (07:36)
--- NOTE | 2016-08-18 08:55 | PDOC PROGRESS REPORT ---
Subjective Progress Note for:: 08/18/16 Physical Exam Vital Signs: Temp Pulse Resp BP Pulse Ox 97.5 F 81 16 136/74 H 97 08/18/16 07:06 08/18/16 07:36 08/18/16 07:36 08/18/16 07:06 08/18/16 07:36 Intake & Output 08/17/16 08/18/16 08/19/16 06:59 06:59 06:59 Intake Total 2409 1610 Output Total 0 Balance 2409 1610 Weight 131.8 kg 131.2 kg General appearance: PRESENT: no acute distress Eye exam: PRESENT: conjunctiva pink. ABSENT: scleral icterus Mouth exam: PRESENT: moist, tongue midline Neck exam: ABSENT: JVD Respiratory exam: PRESENT: wheezes - Bilateral expiratory wheezes. ABSENT: rales, rhonchi Cardiovascular exam: PRESENT: RRR. ABSENT: diastolic murmur, rubs, systolic murmur GI/Abdominal exam: PRESENT: normal bowel sounds, soft. ABSENT: distended, guarding, mass, organolmegaly, rebound, tenderness Extremities exam: ABSENT: calf tenderness, clubbing, pedal edema Neurological exam: PRESENT: alert, awake, oriented to person, oriented to place , oriented to time, oriented to situation, CN II-XII grossly intact. ABSENT: motor sensory deficit Psychiatric exam: PRESENT: appropriate affect Skin exam: PRESENT: dry, intact, warm. ABSENT: cyanosis, rash Results Laboratory Results: 08/18/16 04:08 08/18/16 04:08 08/18/16 08/18/16 04:08 04:08 WBC 17.0 H RBC 5.54 H Hgb 11.6 L Hct 38.6 MCV 70 L MCH 21.0 L MCHC 30.1 L RDW 16.3 H Plt Count 282 Seg Neutrophils % Not Reportable Lymphocytes % Not Reportable Monocytes % Not Reportable Eosinophils % Not Reportable Basophils % Not Reportable Absolute Neutrophils Not Reportable Absolute Lymphocytes Not Reportable Absolute Monocytes Not Reportable Absolute Eosinophils Not Reportable Absolute Basophils Not Reportable Sodium 136.8 L Potassium 4.7 Chloride 95 L Carbon Dioxide 29 Anion Gap 13 BUN 33 H Creatinine 0.80 Est GFR ( Amer) > 60 Est GFR (Non-Af Amer) > 60 Glucose 368 H Calcium 9.2 Total Bilirubin 0.6 AST 25 ALT 26 Alkaline Phosphatase 79 Total Protein 7.3 Albumin 3.8 Impressions: Chest X-Ray 08/15/16 11:26 IMPRESSION: Atelectasis or early pneumonia left lower lobe. Clinical correlation is needed. Assessment & Plan - Diagnosis (1) Acute asthma exacerbation Qualifiers: Asthma severity: severe persistent Qualified Code(s): J45.51 - Severe persistent asthma with (acute) exacerbation Is this a current diagnosis for this admission?: YesPlan: Continue with Solu-Medrol, nebulizers, Levaquin. (2) Pneumonia Qualifiers: Pneumonia type: due to unspecified organism Laterality: left Lung location: lower lobe of lung Qualified Code(s): J18.1 - Lobar pneumonia, unspecified organism Is this a current diagnosis for this admission?: YesPlan: Continue with Levaquin. (3) DVT prophylaxis Is this a current diagnosis for this admission?: YesPlan: Continue with Lovenox (4) Diabetes mellitus type 2 in obese Is this a current diagnosis for this admission?: YesPlan: Continue with sliding scale insulin. (5) Hypertension Qualifiers: Hypertension type: essential hypertension Qualified Code(s): I10 - Essential (primary) hypertension Is this a current diagnosis for this admission?: Yes (6) Leg swelling Is this a current diagnosis for this admission?: YesPlan: Continue with Lasix. (7) Osteoarthritis Qualifiers: Osteoarthritis location: knee Laterality: bilateral Is this a current diagnosis for this admission?: Yes - Time Time Spent with patient: 25-34 minutes - Inpatient Certification Medical Necessity: Need for IV Antibiotics
[2016-08-18] MEDS: METFORMIN HCL 500 MG TABLET PO SCH ×2 (09:42→17:27)
[2016-08-18] MEDS: FUROSEMIDE 20 MG TABLET PO SCH (17:27)
[2016-08-18] MEDS: LEVOFLOXACIN 500 MG TABLET PO SCH (17:27)
[2016-08-18] MEDS: HYDROCHLOROTHIAZIDE 25 MG TABLET PO SCH (17:27)
[2016-08-18] MEDS: LOSARTAN POTASSIUM 50 MG TABLET PO SCH (17:28)
[2016-08-18] MEDS: MONTELUKAST SODIUM 10 MG TABLET PO SCH (17:28)
[2016-08-18] MEDS: CHOLECALCIFEROL (D3) 1,000 UNIT TABLET PO SCH (17:28)
[2016-08-18] MEDS: CYCLOBENZAPRINE HCL 10 MG TABLET PO SCH (21:39)
[2016-08-19] MEDS: METHYLPREDNISOLONE INJ 125 MG/2 ML SDV IV SCH ×4 (00:35→17:22)
[2016-08-19] MEDS: LEVALBUTEROL HCL NEB 1.25 MG/3 ML AMPUL NEB SCH ×4 (01:50→20:23)
[2016-08-19 06:01] LABS: HEMATOCRIT 37.7 % (36.0-47.0); HEMOGLOBIN 11.5 g/dL (12.0-15.5); HGB HCT DIFFERENCE -3.2; MEAN CORPUSCULAR HEMOGLOBIN 21.2 pg (27.0-33.4); MEAN CORPUSCULAR HGB CONC 30.5 g/dL (32.0-36.0); MEAN CORPUSCULAR VOLUME 69 fl (80-97); RED BLOOD COUNT 5.43 10^6/uL (3.72-5.28); RED CELL DISTRIBUTION WIDTH 16.3 % (11.5-14.0); WHITE BLOOD COUNT 15.5 10^3/uL (4.0-10.5)
[2016-08-19] MEDS: LANSOPRAZOLE 30 MG TAB.RAP.DR PO SCH (06:08)
[2016-08-19 06:09] LABS: ANION GAP 13 (5-19); BLOOD UREA NITROGEN 35 mg/dL (7-20); CALCIUM 9.2 mg/dL (8.4-10.2); CARBON DIOXIDE 30 mmol/L (22-30); CHLORIDE 93 mmol/L (98-107); CREATININE RESULT 0.86 mg/dL (0.52-1.25); POTASSIUM 4.2 mmol/L (3.6-5.0); SODIUM 135.9 mmol/L (137-145)
[2016-08-19 06:23] LABS: GLUCOSE 411 mg/dL (75-110)
[2016-08-19 06:26] LABS: BAND NEUTROPHILS % (MANUAL) 2 % (3-5); BASOPHILS % (MANUAL) 0 % (0-2); EOSINOPHILS % (MANUAL) 0 % (0-6); LYMPHOCYTES % (MANUAL) 11 % (13-45); NUCLEATED RED BLOOD CELLS 1 /100 WBC (0); TOTAL CELLS COUNTED 100
[2016-08-19 06:28] LABS: ANISOCYTOSIS 1+; HYPOCHROMASIA 1+; MICROCYTOSIS 2+; POIKILOCYTOSIS 1+; POLYCHROMASIA SLIGHT; TARGET CELLS 2+; TEAR DROP CELLS SLIGHT; TOXIC GRANULATION SLIGHT
[2016-08-19 06:29] LABS: PLATELET CLUMPS PRESENT
[2016-08-19] MEDS ORDERED: INSULIN REG, HUMAN 100 UNIT/ML 3 ML VIAL (PYX) IV ONE (07:00)
[2016-08-19] MEDS: ENOXAPARIN SODIUM INJ 40 MG/0.4 ML DISP.SYRIN SUBCUT SCH (07:57)
[2016-08-19] MEDS: BUDESONIDE NEB 0.5 MG/2 ML AMPUL NEB SCH (08:03)
[2016-08-19] MEDS: METFORMIN HCL 500 MG TABLET PO SCH ×2 (09:13→17:23)
--- NOTE | 2016-08-19 09:53 | PDOC PROGRESS REPORT ---
Subjective Progress Note for:: 08/19/16 Subjective:: Complains of a productive cough Physical Exam Vital Signs: Temp Pulse Resp BP Pulse Ox 98.4 F 110 H 18 125/70 91 L 08/19/16 07:08 08/19/16 08:03 08/19/16 08:03 08/19/16 07:08 08/19/16 08:03 Intake & Output 08/18/16 08/19/16 08/20/16 06:59 06:59 06:59 Intake Total 1610 1395 Output Total 0 Balance 1610 1395 Weight 131.2 kg General appearance: PRESENT: no acute distress Eye exam: PRESENT: conjunctiva pink. ABSENT: scleral icterus Neck exam: ABSENT: JVD Respiratory exam: PRESENT: wheezes. ABSENT: rales, rhonchi Cardiovascular exam: PRESENT: RRR. ABSENT: diastolic murmur, rubs, systolic murmur GI/Abdominal exam: PRESENT: normal bowel sounds, soft. ABSENT: distended, guarding, mass, organolmegaly, rebound, tenderness Extremities exam: ABSENT: calf tenderness, clubbing, pedal edema Neurological exam: PRESENT: alert, awake, oriented to person, oriented to place , oriented to time, oriented to situation, CN II-XII grossly intact. ABSENT: motor sensory deficit Psychiatric exam: PRESENT: appropriate affect Skin exam: PRESENT: dry, intact, warm. ABSENT: cyanosis, rash Results Laboratory Results: 08/19/16 05:43 08/19/16 05:43 08/19/16 08/19/16 05:43 05:43 WBC 15.5 H RBC 5.43 H Hgb 11.5 L Hct 37.7 MCV 69 L MCH 21.2 L MCHC 30.5 L RDW 16.3 H Plt Count 299 Seg Neutrophils % Not Reportable Lymphocytes % Not Reportable Monocytes % Not Reportable Eosinophils % Not Reportable Basophils % Not Reportable Absolute Neutrophils Not Reportable Absolute Lymphocytes Not Reportable Absolute Monocytes Not Reportable Absolute Eosinophils Not Reportable Absolute Basophils Not Reportable Sodium 135.9 L Potassium 4.2 Chloride 93 L Carbon Dioxide 30 Anion Gap 13 BUN 35 H Creatinine 0.86 Est GFR ( Amer) > 60 Est GFR (Non-Af Amer) > 60 Glucose 411 H* Calcium 9.2 Impressions: Chest X-Ray 08/15/16 11:26 IMPRESSION: Atelectasis or early pneumonia left lower lobe. Clinical correlation is needed. Assessment & Plan - Diagnosis (1) Acute asthma exacerbation Qualifiers: Asthma severity: severe persistent Qualified Code(s): J45.51 - Severe persistent asthma with (acute) exacerbation Is this a current diagnosis for this admission?: YesPlan: Continue with Solu-Medrol, nebulizers, Levaquin. (2) Pneumonia Qualifiers: Pneumonia type: due to unspecified organism Laterality: left Lung location: lower lobe of lung Qualified Code(s): J18.1 - Lobar pneumonia, unspecified organism Is this a current diagnosis for this admission?: YesPlan: Continue with Levaquin. (3) DVT prophylaxis Is this a current diagnosis for this admission?: YesPlan: Continue with Lovenox (4) Diabetes mellitus type 2 in obese Is this a current diagnosis for this admission?: YesPlan: Continue with sliding scale insulin. (5) Hypertension Qualifiers: Hypertension type: essential hypertension Qualified Code(s): I10 - Essential (primary) hypertension Is this a current diagnosis for this admission?: Yes (6) Leg swelling Is this a current diagnosis for this admission?: YesPlan: Continue with Lasix. (7) Osteoarthritis Qualifiers: Osteoarthritis location: knee Laterality: bilateral Is this a current diagnosis for this admission?: Yes - Time Time Spent with patient: 25-34 minutes - Inpatient Certification Medical Necessity: Need Close Monitoring Due to Risk of Patient Decompensation, Need for IV Antibiotics
[2016-08-19] MEDS ORDERED: INSULIN GLARGINE,HUM.REC.ANLOG 1,000 UNIT/10 ML UNIT SUBCUT ONE (12:00)
[2016-08-19] MEDS: INSULIN LISPRO 100 UNIT/ML 3 ML VIAL SUBCUT PRN ×3 (12:12→22:01)
[2016-08-19] MEDS: CHOLECALCIFEROL (D3) 1,000 UNIT TABLET PO SCH (17:22)
[2016-08-19] MEDS: FUROSEMIDE 20 MG TABLET PO SCH (17:22)
[2016-08-19] MEDS: LOSARTAN POTASSIUM 50 MG TABLET PO SCH (17:23)
[2016-08-19] MEDS: LEVOFLOXACIN 500 MG TABLET PO SCH (17:23)
[2016-08-19] MEDS: MONTELUKAST SODIUM 10 MG TABLET PO SCH (17:23)
[2016-08-19] MEDS: HYDROCHLOROTHIAZIDE 25 MG TABLET PO SCH (17:23)
[2016-08-19] MEDS: CYCLOBENZAPRINE HCL 10 MG TABLET PO SCH (21:43)
[2016-08-20] MEDS: METHYLPREDNISOLONE INJ 125 MG/2 ML SDV IV SCH ×5 (00:11→23:12)
[2016-08-20] MEDS: LEVALBUTEROL HCL NEB 1.25 MG/3 ML AMPUL NEB SCH ×4 (02:32→19:56)
[2016-08-20 05:14] LABS: ANION GAP 14 (5-19); BLOOD UREA NITROGEN 36 mg/dL (7-20); CALCIUM 9.4 mg/dL (8.4-10.2); CARBON DIOXIDE 30 mmol/L (22-30); CHLORIDE 92 mmol/L (98-107); CREATININE RESULT 0.95 mg/dL (0.52-1.25); GLUCOSE 367 mg/dL (75-110); POTASSIUM 4.6 mmol/L (3.6-5.0); SODIUM 136.4 mmol/L (137-145)
[2016-08-20 05:15] LABS: HEMATOCRIT 38.4 % (36.0-47.0); HEMOGLOBIN 11.8 g/dL (12.0-15.5); MEAN CORPUSCULAR HEMOGLOBIN 21.4 pg (27.0-33.4); MEAN CORPUSCULAR HGB CONC 30.7 g/dL (32.0-36.0); MEAN CORPUSCULAR VOLUME 70 fl (80-97); WHITE BLOOD COUNT 16.3 10^3/uL (4.0-10.5)
[2016-08-20 05:36] LABS: BAND NEUTROPHILS % (MANUAL) 1 % (3-5); BASOPHILS % (MANUAL) 0 % (0-2); EOSINOPHILS % (MANUAL) 0 % (0-6); LYMPHOCYTES % (MANUAL) 11 % (13-45); TOTAL CELLS COUNTED 100
[2016-08-20 05:39] LABS: ANISOCYTOSIS 1+; HYPOCHROMASIA 1+; MICROCYTOSIS 2+; OVALOCYTES SLIGHT; POIKILOCYTOSIS 1+; TARGET CELLS 1+; TEAR DROP CELLS SLIGHT; TOXIC VACUOLATION PRESENT
[2016-08-20] MEDS: LANSOPRAZOLE 30 MG TAB.RAP.DR PO SCH (05:49)
[2016-08-20] MEDS: BUDESONIDE NEB 0.5 MG/2 ML AMPUL NEB SCH (07:36)
[2016-08-20] MEDS: INSULIN LISPRO 100 UNIT/ML 3 ML VIAL SUBCUT PRN ×4 (08:59→23:08)
[2016-08-20] MEDS: ENOXAPARIN SODIUM INJ 40 MG/0.4 ML DISP.SYRIN SUBCUT SCH (09:06)
[2016-08-20] MEDS: METFORMIN HCL 500 MG TABLET PO SCH ×2 (09:07→17:49)
[2016-08-20] MEDS: IPRATROPIUM/ALBUTEROL 0.5-2.5 MG/3 ML AMPUL NEB PRN (12:43)
--- NOTE | 2016-08-20 17:46 | PDOC PROGRESS REPORT ---
Subjective Progress Note for:: 08/20/16 Subjective:: She is feeling better; dyspnea and wheezes have decreased .Ct to monitor her at [facility].She has leukocytosis due to steroids; she has no fever and her vital signs are stable.We will decrease Solumedrol to 60 mg q6h IV. Physical Exam Vital Signs: Temp Pulse Resp BP Pulse Ox 97.9 F 91 20 113/51 L 98 08/20/16 15:10 08/20/16 15:10 08/20/16 15:10 08/20/16 15:10 08/20/16 15:10 Intake & Output 08/19/16 08/20/16 08/21/16 06:59 06:59 06:59 Intake Total 1395 1295 591 Balance 1395 1295 591 Weight 130.6 kg General appearance: PRESENT: mild distress, morbidly obese Head exam: PRESENT: atraumatic, normocephalic Eye exam: PRESENT: EOMI, PERRLA Ear exam: PRESENT: normal external ear exam, TM's normal bilaterally Mouth exam: PRESENT: moist, neck supple Respiratory exam: PRESENT: decreased breath sounds, symmetrical, wheezes Cardiovascular exam: PRESENT: +S1, +S2 Pulses: PRESENT: +2 pedal pulses bilateral GI/Abdominal exam: PRESENT: normal bowel sounds, soft Rectal exam: PRESENT: deferred Extremities exam: PRESENT: full ROM Neurological exam: PRESENT: alert, awake, oriented to person, oriented to place , oriented to time, CN II-XII grossly intact Psychiatric exam: PRESENT: normal mood Results Laboratory Results: 08/20/16 03:38 08/20/16 03:38 08/20/16 08/20/16 03:38 03:38 WBC 16.3 H RBC 5.50 H Hgb 11.8 L Hct 38.4 MCV 70 L MCH 21.4 L MCHC 30.7 L RDW 16.0 H Plt Count 289 Seg Neutrophils % Not Reportable Lymphocytes % Not Reportable Monocytes % Not Reportable Eosinophils % Not Reportable Basophils % Not Reportable Absolute Neutrophils Not Reportable Absolute Lymphocytes Not Reportable Absolute Monocytes Not Reportable Absolute Eosinophils Not Reportable Absolute Basophils Not Reportable Sodium 136.4 L Potassium 4.6 Chloride 92 L Carbon Dioxide 30 Anion Gap 14 BUN 36 H Creatinine 0.95 Est GFR ( Amer) > 60 Est GFR (Non-Af Amer) > 60 Glucose 367 H Calcium 9.4 Impressions: Chest X-Ray 08/15/16 11:26 IMPRESSION: Atelectasis or early pneumonia left lower lobe. Clinical correlation is needed. Assessment & Plan - Diagnosis (1) Acute asthma exacerbation Qualifiers: Asthma severity: severe persistent Qualified Code(s): J45.51 - Severe persistent asthma with (acute) exacerbation Is this a current diagnosis for this admission?: YesPlan: Ct with Oxygen 2 l/min; Duonebs q4h prn; Xopenex nebs 1.25 mg q6h; Solumedrol 60 mg q6h IV; Levaquin 500mg qd po; Symbicort 160/4.5 2 puffs BID; Pulmicort nebs 2ml qpm; Stiolto Respimat 2 puffs daily; Singulair 10 mg qd po. (2) Pneumonia Qualifiers: Pneumonia type: due to unspecified organism Laterality: left Lung location: lower lobe of lung Qualified Code(s): J18.1 - Lobar pneumonia, unspecified organism Is this a current diagnosis for this admission?: YesPlan: Ct with Levaquin 500 mg qd po; Tylenol 650 mg q4h prn po; F/u blood culture and sputum culture. (3) Diabetes mellitus type 2 in obese Is this a current diagnosis for this admission?: YesPlan: Ct with Metformin 1000mg BID po;Accucheck QAC, QHS with slidding scale with humalog insulin [facility] protocol;1800 calorie ADA diet. (4) Hypertension Qualifiers: Hypertension type: essential hypertension Qualified Code(s): I10 - Essential (primary) hypertension Is this a current diagnosis for this admission?: YesPlan: Ct with Losartan/HCTZ 100/25 1 qd po; 2g sodium diet. (5) Leg swelling Is this a current diagnosis for this admission?: YesPlan: Ct with Lasix 20 mg qd po; elevate legs. (6) Osteoarthritis Qualifiers: Osteoarthritis location: knee Laterality: bilateral Is this a current diagnosis for this admission?: YesPlan: Ct with Tylenol #3 1 BID po prn; Flexeril 5 mg qhs . (7) Vitamin D deficiency Is this a current diagnosis for this admission?: YesPlan: Ct with Vitamin D 2000iu qd po. (8) DVT prophylaxis Is this a current diagnosis for this admission?: YesPlan: Ct with Lovenox 40 mg qd subcut; SCD.
[2016-08-20] MEDS: LEVOFLOXACIN 500 MG TABLET PO SCH (17:49)
[2016-08-20] MEDS: MONTELUKAST SODIUM 10 MG TABLET PO SCH (17:49)
[2016-08-20] MEDS: HYDROCHLOROTHIAZIDE 25 MG TABLET PO SCH (17:49)
[2016-08-20] MEDS: FUROSEMIDE 20 MG TABLET PO SCH (17:50)
[2016-08-20] MEDS: CHOLECALCIFEROL (D3) 1,000 UNIT TABLET PO SCH (17:50)
[2016-08-20] MEDS: LOSARTAN POTASSIUM 50 MG TABLET PO SCH (17:50)
[2016-08-20] MEDS: CYCLOBENZAPRINE HCL 10 MG TABLET PO SCH (23:08)
[2016-08-21] MEDS: LEVALBUTEROL HCL NEB 1.25 MG/3 ML AMPUL NEB SCH ×4 (02:02→20:05)
[2016-08-21 05:33] LABS: ABSOLUTE MONOCYTES (AUTO) 0.4 10^3/uL (0.1-1.4); ABSOLUTE NEUT (AUTO) 15.4 10^3/uL (1.7-8.2); BASOPHILS % (AUTO) 0.1 % (0-2); HEMATOCRIT 37.5 % (36.0-47.0); HEMOGLOBIN 11.6 g/dL (12.0-15.5); HGB HCT DIFFERENCE -2.7; MEAN CORPUSCULAR HEMOGLOBIN 21.3 pg (27.0-33.4); MEAN CORPUSCULAR HGB CONC 30.9 g/dL (32.0-36.0); MEAN CORPUSCULAR VOLUME 69 fl (80-97); MONOCYTES % (AUTO) 2.6 % (3-13); RED BLOOD COUNT 5.45 10^6/uL (3.72-5.28); RED CELL DISTRIBUTION WIDTH 15.9 % (11.5-14.0); SEGMENTED NEUTROPHILS % (AUTO) 91.3 % (42-78); WHITE BLOOD COUNT 16.9 10^3/uL (4.0-10.5)
[2016-08-21 05:44] LABS: ANION GAP 15 (5-19); BLOOD UREA NITROGEN 35 mg/dL (7-20); CALCIUM 9.3 mg/dL (8.4-10.2); CARBON DIOXIDE 29 mmol/L (22-30); CHLORIDE 90 mmol/L (98-107); CREATININE RESULT 0.82 mg/dL (0.52-1.25); POTASSIUM 4.6 mmol/L (3.6-5.0); SODIUM 133.5 mmol/L (137-145)
[2016-08-21 05:54] LABS: GLUCOSE 438 mg/dL (75-110)
[2016-08-21] MEDS: METHYLPREDNISOLONE INJ 125 MG/2 ML SDV IV SCH ×4 (06:17→23:41)
[2016-08-21] MEDS: LANSOPRAZOLE 30 MG TAB.RAP.DR PO SCH (06:17)
[2016-08-21] MEDS: INSULIN LISPRO 100 UNIT/ML 3 ML VIAL SUBCUT PRN ×4 (07:24→23:36)
[2016-08-21] MEDS: BUDESONIDE NEB 0.5 MG/2 ML AMPUL NEB SCH (07:50)
[2016-08-21] MEDS: ENOXAPARIN SODIUM INJ 40 MG/0.4 ML DISP.SYRIN SUBCUT SCH (08:39)
[2016-08-21] MEDS: METFORMIN HCL 500 MG TABLET PO SCH ×2 (09:58→17:22)
--- NOTE | 2016-08-21 17:17 | PDOC PROGRESS REPORT ---
Subjective Progress Note for:: 08/21/16 Subjective:: She is feeling better; dyspnea and wheezes have decreased .Ct to monitor her at [facility].She has leukocytosis due to steroids; she has no fever and her vital signs are stable.We will decrease Solumedrol to 60 mg q6h IV. Physical Exam Vital Signs: Temp Pulse Resp BP Pulse Ox 97.8 F 88 19 101/51 L 99 08/21/16 15:12 08/21/16 15:12 08/21/16 15:12 08/21/16 15:12 08/21/16 15:12 Intake & Output 08/20/16 08/21/16 08/22/16 06:59 06:59 06:59 Intake Total 1295 1325 971 Balance 1295 1325 971 Weight 130.6 kg 130.6 kg General appearance: PRESENT: no acute distress, morbidly obese Head exam: PRESENT: atraumatic, normocephalic Eye exam: PRESENT: EOMI, PERRLA Ear exam: PRESENT: TM's normal bilaterally Mouth exam: PRESENT: moist, neck supple, tongue midline Neck exam: PRESENT: full ROM Respiratory exam: PRESENT: decreased breath sounds, wheezes Cardiovascular exam: PRESENT: +S1, +S2 Pulses: PRESENT: +2 pedal pulses bilateral GI/Abdominal exam: PRESENT: normal bowel sounds, soft Rectal exam: PRESENT: deferred Extremities exam: PRESENT: full ROM Musculoskeletal exam: PRESENT: full ROM Neurological exam: PRESENT: alert, awake, oriented to person, oriented to place , oriented to time, oriented to situation, CN II-XII grossly intact Psychiatric exam: PRESENT: normal mood Results Laboratory Results: 08/21/16 04:25 08/21/16 04:25 08/21/16 08/21/16 04:25 04:25 WBC 16.9 H RBC 5.45 H Hgb 11.6 L Hct 37.5 MCV 69 L MCH 21.3 L MCHC 30.9 L RDW 15.9 H Plt Count 301 Seg Neutrophils % 91.3 H Lymphocytes % 6.0 L Monocytes % 2.6 L Eosinophils % 0.0 Basophils % 0.1 Absolute Neutrophils 15.4 H Absolute Lymphocytes 1.0 Absolute Monocytes 0.4 Absolute Eosinophils 0.0 Absolute Basophils 0.0 Sodium 133.5 L Potassium 4.6 Chloride 90 L Carbon Dioxide 29 Anion Gap 15 BUN 35 H Creatinine 0.82 Est GFR ( Amer) > 60 Est GFR (Non-Af Amer) > 60 Glucose 438 H* Calcium 9.3 08/15/16 19:50 Blood Blood Culture - Final NO GROWTH IN 5 DAYS Impressions: Chest X-Ray 08/15/16 11:26 IMPRESSION: Atelectasis or early pneumonia left lower lobe. Clinical correlation is needed. Assessment & Plan - Diagnosis (1) Acute asthma exacerbation Qualifiers: Asthma severity: severe persistent Qualified Code(s): J45.51 - Severe persistent asthma with (acute) exacerbation Is this a current diagnosis for this admission?: YesPlan: Ct with Oxygen 2 l/min; Duonebs q4h prn; Xopenex nebs 1.25 mg q6h; Solumedrol 60 mg q6h IV; Levaquin 500mg qd po; Symbicort 160/4.5 2 puffs BID; Pulmicort nebs 2ml qpm; Stiolto Respimat 2 puffs daily; Singulair 10 mg qd po. (2) Pneumonia Qualifiers: Pneumonia type: due to unspecified organism Laterality: left Lung location: lower lobe of lung Qualified Code(s): J18.1 - Lobar pneumonia, unspecified organism Is this a current diagnosis for this admission?: YesPlan: Ct with Levaquin 500 mg qd po; Tylenol 650 mg q4h prn po; F/u blood culture and sputum culture. (3) Diabetes mellitus type 2 in obese Is this a current diagnosis for this admission?: YesPlan: Ct with Metformin 1000mg BID po;Accucheck QAC, QHS with slidding scale with humalog insulin [facility] protocol;1800 calorie ADA diet. (4) Hypertension Qualifiers: Hypertension type: essential hypertension Qualified Code(s): I10 - Essential (primary) hypertension Is this a current diagnosis for this admission?: YesPlan: Ct with Losartan/HCTZ 100/25 1 qd po; 2g sodium diet. (5) Leg swelling Is this a current diagnosis for this admission?: YesPlan: Ct with Lasix 20 mg qd po; elevate legs. (6) Osteoarthritis Qualifiers: Osteoarthritis location: knee Laterality: bilateral Is this a current diagnosis for this admission?: YesPlan: Ct with Tylenol #3 1 BID po prn; Flexeril 5 mg qhs . (7) Vitamin D deficiency Is this a current diagnosis for this admission?: YesPlan: Ct with Vitamin D 2000iu qd po. (8) DVT prophylaxis Is this a current diagnosis for this admission?: YesPlan: Ct with Lovenox 40 mg qd subcut; SCD.
[2016-08-21] MEDS: INSULIN LISPRO 100 UNIT/ML 3 ML VIAL SUBCUT SCH (17:21)
[2016-08-21] MEDS: FUROSEMIDE 20 MG TABLET PO SCH (17:21)
[2016-08-21] MEDS: HYDROCHLOROTHIAZIDE 25 MG TABLET PO SCH (17:22)
[2016-08-21] MEDS: MONTELUKAST SODIUM 10 MG TABLET PO SCH (17:24)
[2016-08-21] MEDS: CHOLECALCIFEROL (D3) 1,000 UNIT TABLET PO SCH (17:24)
[2016-08-21] MEDS: LEVOFLOXACIN 500 MG TABLET PO SCH (17:24)
[2016-08-21] MEDS: LOSARTAN POTASSIUM 50 MG TABLET PO SCH (17:24)
[2016-08-21] MEDS: POLYETHYLENE GLYCOL 3350 POWDER 17 GM/1 PACKET PO PRN (19:25)
[2016-08-21] MEDS: CYCLOBENZAPRINE HCL 10 MG TABLET PO SCH (22:35)
[2016-08-22] MEDS: LEVALBUTEROL HCL NEB 1.25 MG/3 ML AMPUL NEB SCH ×4 (01:55→20:05)
[2016-08-22 06:24] LABS: ABSOLUTE MONOCYTES (AUTO) 0.4 10^3/uL (0.1-1.4); ABSOLUTE NEUT (AUTO) 15.2 10^3/uL (1.7-8.2); BASOPHILS % (AUTO) 0.2 % (0-2); HEMATOCRIT 38.7 % (36.0-47.0); HEMOGLOBIN 11.8 g/dL (12.0-15.5); HGB HCT DIFFERENCE -3.3; LYMPHOCYTES % (AUTO) 6.2 % (13-45); MEAN CORPUSCULAR HEMOGLOBIN 21.1 pg (27.0-33.4); MEAN CORPUSCULAR HGB CONC 30.6 g/dL (32.0-36.0); MEAN CORPUSCULAR VOLUME 69 fl (80-97); MONOCYTES % (AUTO) 2.6 % (3-13); RED BLOOD COUNT 5.61 10^6/uL (3.72-5.28); RED CELL DISTRIBUTION WIDTH 15.6 % (11.5-14.0); WHITE BLOOD COUNT 16.7 10^3/uL (4.0-10.5)
[2016-08-22 06:37] LABS: ANION GAP 12 (5-19); BLOOD UREA NITROGEN 37 mg/dL (7-20); CALCIUM 9.5 mg/dL (8.4-10.2); CARBON DIOXIDE 32 mmol/L (22-30); CHLORIDE 91 mmol/L (98-107); CREATININE RESULT 0.85 mg/dL (0.52-1.25); GLUCOSE 384 mg/dL (75-110); POTASSIUM 4.7 mmol/L (3.6-5.0); SODIUM 134.5 mmol/L (137-145)
[2016-08-22] MEDS: METHYLPREDNISOLONE INJ 125 MG/2 ML SDV IV SCH ×3 (06:49→17:34)
[2016-08-22] MEDS: LANSOPRAZOLE 30 MG TAB.RAP.DR PO SCH (06:49)
[2016-08-22] MEDS: BUDESONIDE NEB 0.5 MG/2 ML AMPUL NEB SCH (08:26)
[2016-08-22] MEDS: METFORMIN HCL 500 MG TABLET PO SCH ×2 (08:45→17:34)
[2016-08-22] MEDS: ENOXAPARIN SODIUM INJ 40 MG/0.4 ML DISP.SYRIN SUBCUT SCH (08:45)
[2016-08-22] MEDS: INSULIN LISPRO 100 UNIT/ML 3 ML VIAL SUBCUT PRN ×4 (08:45→22:18)
[2016-08-22] MEDS: INSULIN LISPRO 100 UNIT/ML 3 ML VIAL SUBCUT SCH ×3 (08:45→17:34)
--- NOTE | 2016-08-22 10:55 | RADIOLOGY REPORT (SQ) ---
EXAM DESCRIPTION: CHEST PA/LAT COMPLETED DATE/TIME: 08/22/2016 10:45 am REASON FOR STUDY: asthma not improving COMPARISON: 06/27/2012 EXAM PARAMETERS: NUMBER OF VIEWS: two views TECHNIQUE: Digital Frontal and Lateral radiographic views of the chest acquired. RADIATION DOSE: NA LIMITATIONS: none FINDINGS: LUNGS AND PLEURA: No opacities, masses or pneumothorax. No pleural effusion. MEDIASTINUM AND HILAR STRUCTURES: No masses or contour abnormalities. HEART AND VASCULAR STRUCTURES: Heart normal size. No evidence for failure. BONES: No acute findings. HARDWARE: EKG leads overlie the chest. OTHER: No other significant finding. IMPRESSION: NO SIGNIFICANT RADIOGRAPHIC FINDING IN THE CHEST. TECHNICAL DOCUMENTATION: JOB ID: [id number] [employer]- All Rights Reserved
--- NOTE | 2016-08-22 16:37 | PDOC PROGRESS REPORT ---
Subjective Progress Note for:: 08/22/16 Subjective:: She is feeling better; dyspnea and wheezes have decreased .Ct to monitor her at [facility].She has leukocytosis due to steroids; she has no fever and her vital signs are stable.We will decrease Solumedrol to 60 mg q6h IV.She was seen in consult today by eeg tech, Dr Liao. Repeat chest xray did not show any abnormality. Physical Exam Vital Signs: Temp Pulse Resp BP Pulse Ox 97.8 F 77 18 142/70 H 97 08/22/16 07:45 08/22/16 14:11 08/22/16 14:11 08/22/16 07:45 08/22/16 14:11 Intake & Output 08/21/16 08/22/16 08/23/16 06:59 06:59 06:59 Intake Total 1325 2154 Balance 1325 2154 Weight 130.6 kg 132.5 kg General appearance: PRESENT: cooperative, mild distress, morbidly obese Head exam: PRESENT: normocephalic Eye exam: PRESENT: EOMI, PERRLA Mouth exam: PRESENT: moist, neck supple Neck exam: PRESENT: full ROM Respiratory exam: PRESENT: decreased breath sounds, wheezes Cardiovascular exam: PRESENT: +S1, +S2 Pulses: PRESENT: +2 pedal pulses bilateral GI/Abdominal exam: PRESENT: normal bowel sounds, soft Rectal exam: PRESENT: deferred Extremities exam: PRESENT: full ROM Neurological exam: PRESENT: alert, awake, oriented to person, oriented to place , oriented to time, CN II-XII grossly intact Psychiatric exam: PRESENT: normal mood Results Laboratory Results: 08/22/16 06:08 08/22/16 06:08 08/22/16 08/22/16 08/22/16 06:08 06:08 14:44 WBC 16.7 H RBC 5.61 H Hgb 11.8 L Hct 38.7 MCV 69 L MCH 21.1 L MCHC 30.6 L RDW 15.6 H Plt Count 288 Seg Neutrophils % 91.0 H Lymphocytes % 6.2 L Monocytes % 2.6 L Eosinophils % 0.0 Basophils % 0.2 Absolute Neutrophils 15.2 H Absolute Lymphocytes 1.0 Absolute Monocytes 0.4 Absolute Eosinophils 0.0 Absolute Basophils 0.0 Carbonic Acid 1.44 H HCO3/H2CO3 Ratio 21:1 ABG pH 7.42 ABG pCO2 47.7 H ABG pO2 91.1 ABG HCO3 30.4 H ABG O2 Saturation 97.0 ABG Base Excess 5.0 FiO2 2L Sodium 134.5 L Potassium 4.7 Chloride 91 L Carbon Dioxide 32 H Anion Gap 12 BUN 37 H Creatinine 0.85 Est GFR ( Amer) > 60 Est GFR (Non-Af Amer) > 60 Glucose 384 H Calcium 9.5 Impressions: Chest X-Ray 08/22/16 00:00 IMPRESSION: NO SIGNIFICANT RADIOGRAPHIC FINDING IN THE CHEST. Assessment & Plan - Diagnosis (1) Acute asthma exacerbation Qualifiers: Asthma severity: severe persistent Qualified Code(s): J45.51 - Severe persistent asthma with (acute) exacerbation Is this a current diagnosis for this admission?: YesPlan: Ct with Oxygen 2 l/min; Duonebs q4h prn; Xopenex nebs 1.25 mg q6h; Solumedrol 60 mg q6h IV; Levaquin 500mg qd po; Symbicort 160/4.5 2 puffs BID; Pulmicort nebs 2ml qpm; Stiolto Respimat 2 puffs daily; Singulair 10 mg qd po. (2) Pneumonia Qualifiers: Pneumonia type: due to unspecified organism Laterality: left Lung location: lower lobe of lung Qualified Code(s): J18.1 - Lobar pneumonia, unspecified organism Is this a current diagnosis for this admission?: YesPlan: Ct with Levaquin 500 mg qd po; Tylenol 650 mg q4h prn po; F/u blood culture and sputum culture. (3) Diabetes mellitus type 2 in obese Is this a current diagnosis for this admission?: YesPlan: Ct with Metformin 1000mg BID po;Accucheck QAC, QHS with slidding scale with humalog insulin OM protocol;1800 calorie ADA diet. (4) Hypertension Qualifiers: Hypertension type: essential hypertension Qualified Code(s): I10 - Essential (primary) hypertension Is this a current diagnosis for this admission?: YesPlan: Ct with Losartan/HCTZ 100/25 1 qd po; 2g sodium diet. (5) Leg swelling Is this a current diagnosis for this admission?: YesPlan: Ct with Lasix 20 mg qd po; elevate legs. (6) Osteoarthritis Qualifiers: Osteoarthritis location: knee Laterality: bilateral Is this a current diagnosis for this admission?: YesPlan: Ct with Tylenol #3 1 BID po prn; Flexeril 5 mg qhs . (7) Vitamin D deficiency Is this a current diagnosis for this admission?: YesPlan: Ct with Vitamin D 2000iu qd po. (8) DVT prophylaxis Is this a current diagnosis for this admission?: YesPlan: Ct with Lovenox 40 mg qd subcut; SCD.
[2016-08-22] MEDS: IPRATROPIUM/ALBUTEROL 0.5-2.5 MG/3 ML AMPUL NEB PRN (17:32)
[2016-08-22] MEDS: FUROSEMIDE 20 MG TABLET PO SCH (17:34)
[2016-08-22] MEDS: MONTELUKAST SODIUM 10 MG TABLET PO SCH (17:35)
[2016-08-22] MEDS: LEVOFLOXACIN 500 MG TABLET PO SCH (17:35)
[2016-08-22] MEDS: CHOLECALCIFEROL (D3) 1,000 UNIT TABLET PO SCH (17:35)
[2016-08-22] MEDS: HYDROCHLOROTHIAZIDE 25 MG TABLET PO SCH (17:36)
[2016-08-22] MEDS: LOSARTAN POTASSIUM 50 MG TABLET PO SCH (17:36)
[2016-08-22] MEDS: BUDESONIDE/FORMOTEROL 160-4.5 MCG 60 PUFF/6 GM MDI IH SCH ×2 (19:00→21:01)
[2016-08-22] MEDS ORDERED: STIOLTO RESPIMAT IH ONE (21:00)
[2016-08-22] MEDS: CYCLOBENZAPRINE HCL 10 MG TABLET PO SCH (21:01)
[2016-08-22] MEDS: POLYETHYLENE GLYCOL 3350 POWDER 17 GM/1 PACKET PO PRN (21:07)
[2016-08-23] MEDS: METHYLPREDNISOLONE INJ 125 MG/2 ML SDV IV SCH ×4 (00:42→18:02)
[2016-08-23] MEDS: LEVALBUTEROL HCL NEB 1.25 MG/3 ML AMPUL NEB SCH ×4 (02:13→20:18)
[2016-08-23] MEDS: LANSOPRAZOLE 30 MG TAB.RAP.DR PO SCH (05:30)
[2016-08-23 05:41] LABS: HEMATOCRIT 38.6 % (36.0-47.0); HEMOGLOBIN 11.9 g/dL (12.0-15.5); HGB HCT DIFFERENCE -2.9; MEAN CORPUSCULAR HEMOGLOBIN 21.3 pg (27.0-33.4); MEAN CORPUSCULAR HGB CONC 30.9 g/dL (32.0-36.0); MEAN CORPUSCULAR VOLUME 69 fl (80-97); RED BLOOD COUNT 5.59 10^6/uL (3.72-5.28); RED CELL DISTRIBUTION WIDTH 15.8 % (11.5-14.0); WHITE BLOOD COUNT 17.2 10^3/uL (4.0-10.5)
[2016-08-23 06:00] LABS: ANION GAP 10 (5-19); BLOOD UREA NITROGEN 38 mg/dL (7-20); CALCIUM 8.8 mg/dL (8.4-10.2); CARBON DIOXIDE 31 mmol/L (22-30); CHLORIDE 91 mmol/L (98-107); CREATININE RESULT 0.74 mg/dL (0.52-1.25); POTASSIUM 5.3 mmol/L (3.6-5.0); SODIUM 132.1 mmol/L (137-145)
[2016-08-23 06:06] LABS: BAND NEUTROPHILS % (MANUAL) 1 % (3-5); BASOPHILS % (MANUAL) 0 % (0-2); EOSINOPHILS % (MANUAL) 0 % (0-6); LYMPHOCYTES % (MANUAL) 7 % (13-45); TOTAL CELLS COUNTED 100
[2016-08-23 06:08] LABS: ANISOCYTOSIS SLIGHT; HYPOCHROMASIA 1+; MICROCYTOSIS 2+; POIKILOCYTOSIS 2+; POLYCHROMASIA SLIGHT; TARGET CELLS 2+
[2016-08-23 06:13] LABS: GLUCOSE 406 mg/dL (75-110)
[2016-08-23] MEDS: BUDESONIDE NEB 0.5 MG/2 ML AMPUL NEB SCH (07:39)
[2016-08-23] MEDS: ENOXAPARIN SODIUM INJ 40 MG/0.4 ML DISP.SYRIN SUBCUT SCH (08:44)
[2016-08-23] MEDS: INSULIN LISPRO 100 UNIT/ML 3 ML VIAL SUBCUT PRN ×4 (08:44→21:47)
[2016-08-23] MEDS: INSULIN LISPRO 100 UNIT/ML 3 ML VIAL SUBCUT SCH ×3 (08:44→18:01)
[2016-08-23] MEDS: BUDESONIDE/FORMOTEROL 160-4.5 MCG 60 PUFF/6 GM MDI IH SCH ×2 (08:44→21:47)
[2016-08-23] MEDS: METFORMIN HCL 500 MG TABLET PO SCH ×2 (08:45→18:01)
[2016-08-23] MEDS: DOCUSATE SODIUM 100 MG CAPSULE PO PRN (08:45)
[2016-08-23] MEDS ORDERED: SODIUM POLYSTYRENE SULFONATE 15 GM/60 ML PO ONE (09:30)
--- NOTE | 2016-08-23 14:41 | PDOC PROGRESS REPORT ---
Subjective Progress Note for:: 08/23/16 Subjective:: She is feeling better; dyspnea and wheezes have decreased .Ct to monitor her at [facility].She has leukocytosis due to steroids; she has no fever and her vital signs are stable.We will decrease Solumedrol to 60 mg q6h IV.She was seen in consult today by analyst geochemical prospecting, Dr Liao. Repeat chest xray did not show any abnormality.We will add Lantus 30 iu to optimize her diabetic control since her blood sugar is uncontrolled due to steroids. Her Potassium was 5.3 and we will give her Kayexalate 15 G POx1. Physical Exam Vital Signs: Temp Pulse Resp BP Pulse Ox 98.0 F 82 18 132/71 H 97 08/23/16 07:23 08/23/16 14:00 08/23/16 14:00 08/23/16 07:23 08/23/16 14:00 Intake & Output 08/22/16 08/23/16 08/24/16 06:59 06:59 06:59 Intake Total 2153 2073 Output Total 0 Balance 2153 2073 Weight 132.5 kg 132.7 kg General appearance: PRESENT: cooperative, mild distress, morbidly obese Head exam: PRESENT: atraumatic, normocephalic Eye exam: PRESENT: EOMI, PERRLA Ear exam: PRESENT: normal external ear exam, TM's normal bilaterally Mouth exam: PRESENT: moist, neck supple, tongue midline Neck exam: PRESENT: full ROM Respiratory exam: PRESENT: decreased breath sounds, wheezes Cardiovascular exam: PRESENT: +S1, +S2 Pulses: PRESENT: +2 pedal pulses bilateral GI/Abdominal exam: PRESENT: normal bowel sounds, soft Rectal exam: PRESENT: deferred Extremities exam: PRESENT: full ROM Musculoskeletal exam: PRESENT: full ROM Neurological exam: PRESENT: alert, awake, oriented to person, oriented to place , oriented to time, CN II-XII grossly intact Psychiatric exam: PRESENT: normal mood Results Laboratory Results: 08/23/16 05:00 08/23/16 05:00 08/22/16 08/23/16 08/23/16 14:44 05:00 05:00 WBC 17.2 H RBC 5.59 H Hgb 11.9 L Hct 38.6 MCV 69 L MCH 21.3 L MCHC 30.9 L RDW 15.8 H Plt Count 240 Seg Neutrophils % Not Reportable Lymphocytes % Not Reportable Monocytes % Not Reportable Eosinophils % Not Reportable Basophils % Not Reportable Absolute Neutrophils Not Reportable Absolute Lymphocytes Not Reportable Absolute Monocytes Not Reportable Absolute Eosinophils Not Reportable Absolute Basophils Not Reportable Carbonic Acid 1.44 H HCO3/H2CO3 Ratio 21:1 ABG pH 7.42 ABG pCO2 47.7 H ABG pO2 91.1 ABG HCO3 30.4 H ABG O2 Saturation 97.0 ABG Base Excess 5.0 FiO2 2L Sodium 132.1 L Potassium 5.3 H Chloride 91 L Carbon Dioxide 31 H Anion Gap 10 BUN 38 H Creatinine 0.74 Est GFR ( Amer) > 60 Est GFR (Non-Af Amer) > 60 Glucose 406 H* Calcium 8.8 Impressions: Chest X-Ray 08/22/16 00:00 IMPRESSION: NO SIGNIFICANT RADIOGRAPHIC FINDING IN THE CHEST. Assessment & Plan - Diagnosis (1) Acute asthma exacerbation Qualifiers: Asthma severity: severe persistent Qualified Code(s): J45.51 - Severe persistent asthma with (acute) exacerbation Is this a current diagnosis for this admission?: YesPlan: Ct with Oxygen 2 l/min; Duonebs q4h prn; Xopenex nebs 1.25 mg q6h; Solumedrol 60 mg q6h IV; Levaquin 500mg qd po; Symbicort 160/4.5 2 puffs BID; Pulmicort nebs 2ml qpm; Stiolto Respimat 2 puffs daily; Singulair 10 mg qd po. (2) Pneumonia Qualifiers: Pneumonia type: due to unspecified organism Laterality: left Lung location: lower lobe of lung Qualified Code(s): J18.1 - Lobar pneumonia, unspecified organism Is this a current diagnosis for this admission?: Yes (3) Diabetes mellitus type 2 in obese Is this a current diagnosis for this admission?: YesPlan: Ct with Metformin 1000mg BID po;Accucheck QAC, QHS with slidding scale with humalog insulin [facility] protocol; Humalog insulin 10 iu QAC subcut.1800 calorie ADA diet. Add Lantus 30 iu qhs subcut. (4) Hypertension Qualifiers: Hypertension type: essential hypertension Qualified Code(s): I10 - Essential (primary) hypertension Is this a current diagnosis for this admission?: YesPlan: Ct with Losartan/HCTZ 100/25 1 qd po; 2g sodium diet. (5) Leg swelling Is this a current diagnosis for this admission?: YesPlan: Ct with Lasix 20 mg qd po; elevate legs. (6) Osteoarthritis Qualifiers: Osteoarthritis location: knee Laterality: bilateral Is this a current diagnosis for this admission?: YesPlan: Ct with Tylenol #3 1 BID po prn; Flexeril 5 mg qhs . (7) Vitamin D deficiency Is this a current diagnosis for this admission?: YesPlan: Ct with Vitamin D 2000iu qd po. (8) DVT prophylaxis Is this a current diagnosis for this admission?: YesPlan: Ct with Lovenox 40 mg qd subcut; SCD.
[2016-08-23] MEDS: LEVOFLOXACIN 500 MG TABLET PO SCH (18:01)
[2016-08-23] MEDS: MONTELUKAST SODIUM 10 MG TABLET PO SCH (18:01)
[2016-08-23] MEDS: HYDROCHLOROTHIAZIDE 25 MG TABLET PO SCH (18:01)
[2016-08-23] MEDS: FUROSEMIDE 20 MG TABLET PO SCH (18:01)
[2016-08-23] MEDS: CHOLECALCIFEROL (D3) 1,000 UNIT TABLET PO SCH (18:02)
[2016-08-23] MEDS: LOSARTAN POTASSIUM 50 MG TABLET PO SCH (18:02)
[2016-08-23] MEDS: STIOLTO RESPIMAT IH SCH (18:02)
[2016-08-23] MEDS: INSULIN GLARGINE,HUM.REC.ANLOG 300 UNIT/3 ML INSULN.PEN SUBCUT SCH (21:47)
[2016-08-23] MEDS: CYCLOBENZAPRINE HCL 10 MG TABLET PO SCH (21:47)
[2016-08-23] MEDS ORDERED: INSULIN GLARGINE,HUM.REC.ANLOG 1,000 UNIT/10 ML UNIT SUBCUT SCH (22:00)
[2016-08-24] MEDS: METHYLPREDNISOLONE INJ 125 MG/2 ML SDV IV SCH ×5 (01:08→23:55)
[2016-08-24] MEDS: LEVALBUTEROL HCL NEB 1.25 MG/3 ML AMPUL NEB SCH ×4 (02:03→19:31)
[2016-08-24] MEDS: LANSOPRAZOLE 30 MG TAB.RAP.DR PO SCH (05:21)
[2016-08-24] MEDS: BUDESONIDE NEB 0.5 MG/2 ML AMPUL NEB SCH (07:59)
[2016-08-24] MEDS: ENOXAPARIN SODIUM INJ 40 MG/0.4 ML DISP.SYRIN SUBCUT SCH (09:25)
[2016-08-24] MEDS: INSULIN LISPRO 100 UNIT/ML 3 ML VIAL SUBCUT SCH ×3 (09:25→17:15)
[2016-08-24] MEDS: INSULIN LISPRO 100 UNIT/ML 3 ML VIAL SUBCUT PRN ×4 (09:25→22:04)
[2016-08-24] MEDS: DOCUSATE SODIUM 100 MG CAPSULE PO PRN ×2 (09:26→17:21)
[2016-08-24] MEDS: BUDESONIDE/FORMOTEROL 160-4.5 MCG 60 PUFF/6 GM MDI IH SCH ×2 (09:26→22:04)
[2016-08-24] MEDS: METFORMIN HCL 500 MG TABLET PO SCH ×2 (09:26→17:16)
--- NOTE | 2016-08-24 13:14 | PDOC PROGRESS REPORT ---
Subjective Progress Note for:: 08/24/16 Subjective:: She is feeling better; dyspnea and wheezes have decreased .Ct to monitor her at [facility].She has leukocytosis due to steroids; she has no fever and her vital signs are stable.We will decrease Solumedrol to 60 mg q6h IV.She was seen in consult today by casting machine set up operator, Dr Liao. Repeat chest xray did not show any abnormality.We will add Lantus 30 iu to optimize her diabetic control since her blood sugar is uncontrolled due to steroids. Her Potassium was 5.3 and we will give her Kayexalate 15 G POx1.She is better today and we will continue to monitor her closely. Physical Exam Vital Signs: Temp Pulse Resp BP Pulse Ox 97.8 F 91 19 103/56 L 99 08/24/16 11:23 08/24/16 11:23 08/24/16 11:23 08/24/16 11:23 08/24/16 11:23 Intake & Output 08/23/16 08/24/16 08/25/16 06:59 06:59 06:59 Intake Total 2073 1896 591 Output Total 0 Balance 2073 189 591 Weight 132.7 kg 131.3 kg General appearance: PRESENT: cooperative, mild distress, morbidly obese Head exam: PRESENT: atraumatic, normocephalic Eye exam: PRESENT: EOMI, PERRLA Ear exam: PRESENT: normal external ear exam, TM's normal bilaterally Mouth exam: PRESENT: moist, neck supple, tongue midline Neck exam: PRESENT: full ROM Respiratory exam: PRESENT: decreased breath sounds, wheezes Cardiovascular exam: PRESENT: +S1, +S2 Pulses: PRESENT: +2 pedal pulses bilateral GI/Abdominal exam: PRESENT: normal bowel sounds, soft Rectal exam: PRESENT: deferred Extremities exam: PRESENT: full ROM Musculoskeletal exam: PRESENT: full ROM Neurological exam: PRESENT: alert, awake, oriented to person, oriented to place , oriented to time Psychiatric exam: PRESENT: normal mood Results Laboratory Results: 08/23/16 05:00 08/23/16 05:00 Impressions: Chest X-Ray 08/22/16 00:00 IMPRESSION: NO SIGNIFICANT RADIOGRAPHIC FINDING IN THE CHEST. Assessment & Plan - Diagnosis (1) Acute asthma exacerbation Qualifiers: Asthma severity: severe persistent Qualified Code(s): J45.51 - Severe persistent asthma with (acute) exacerbation Is this a current diagnosis for this admission?: YesPlan: Ct with Oxygen 2 l/min; Duonebs q4h prn; Xopenex nebs 1.25 mg q6h; Solumedrol 60 mg q6h IV; Levaquin 500mg qd po; Symbicort 160/4.5 2 puffs BID; Pulmicort nebs 2ml qpm; Stiolto Respimat 2 puffs daily; Singulair 10 mg qd po. (2) Pneumonia Qualifiers: Pneumonia type: due to unspecified organism Laterality: left Lung location: lower lobe of lung Qualified Code(s): J18.1 - Lobar pneumonia, unspecified organism Is this a current diagnosis for this admission?: YesPlan: Ct with Levaquin 500 mg qd po; Tylenol 650 mg q4h prn po; F/u blood culture and sputum culture. (3) Diabetes mellitus type 2 in obese Is this a current diagnosis for this admission?: YesPlan: Ct with Metformin 1000mg BID po;Accucheck QAC, QHS with slidding scale with humalog insulin OM protocol; Humalog insulin 10 iu QAC subcut.1800 calorie ADA diet. Add Lantus 30 iu qhs subcut. (4) Hypertension Qualifiers: Hypertension type: essential hypertension Qualified Code(s): I10 - Essential (primary) hypertension Is this a current diagnosis for this admission?: YesPlan: Ct with Losartan/HCTZ 100/25 1 qd po; 2g sodium diet. (5) Leg swelling Is this a current diagnosis for this admission?: YesPlan: Ct with Lasix 20 mg qd po; elevate legs. (6) Osteoarthritis Qualifiers: Osteoarthritis location: knee Laterality: bilateral Is this a current diagnosis for this admission?: YesPlan: Ct with Tylenol #3 1 BID po prn; Flexeril 5 mg qhs . (7) Vitamin D deficiency Is this a current diagnosis for this admission?: YesPlan: Ct with Vitamin D 2000iu qd po. (8) DVT prophylaxis Is this a current diagnosis for this admission?: YesPlan: Ct with Lovenox 40 mg qd subcut; SCD.
[2016-08-24 14:00] LABS: ANION GAP 14 (5-19); BLOOD UREA NITROGEN 30 mg/dL (7-20); CALCIUM 9.4 mg/dL (8.4-10.2); CARBON DIOXIDE 30 mmol/L (22-30); CHLORIDE 89 mmol/L (98-107); CREATININE RESULT 0.83 mg/dL (0.52-1.25); GLUCOSE 392 mg/dL (75-110)
[2016-08-24] MEDS: MONTELUKAST SODIUM 10 MG TABLET PO SCH (17:15)
[2016-08-24] MEDS: STIOLTO RESPIMAT IH SCH (17:15)
[2016-08-24] MEDS: HYDROCHLOROTHIAZIDE 25 MG TABLET PO SCH (17:16)
[2016-08-24] MEDS: FUROSEMIDE 20 MG TABLET PO SCH (17:16)
[2016-08-24] MEDS: LOSARTAN POTASSIUM 50 MG TABLET PO SCH (17:16)
[2016-08-24] MEDS: CHOLECALCIFEROL (D3) 1,000 UNIT TABLET PO SCH (17:16)
[2016-08-24] MEDS: POLYETHYLENE GLYCOL 3350 POWDER 17 GM/1 PACKET PO PRN (17:21)
[2016-08-24 18:36] LABS: E001-IGE CAT DANDER 0.75 kU/L (Class II); G002-IGE BERMUDA GRASS <0.10 kU/L (Class 0); G008-IGE BLUEGRASS KENTUCKY <0.10 kU/L (Class 0); M001-IGE PENICILLIUM CHRYSOGEN <0.10 kU/L (Class 0); M002-IGE CLADOSPORIUM HERBARUM <0.10 kU/L (Class 0); M003-IGE ASPERGILLUS FUMIGATUS <0.10 kU/L (Class 0); M004-IGE MUCOR RACEMOSUS <0.10 kU/L (Class 0); M005-IGE CANDIDA ALBICANS 0.33 kU/L (Class I); M006-IGE ALTERNARIA ALTERNATA <0.10 kU/L (Class 0); M008-IGE SETOMELANOMMA ROSTRAT <0.10 kU/L (Class 0); M009-IGE FUSARIUM PROLIFERATUM <0.10 kU/L (Class 0); M012-IGE AUREOBASIDI PULLULANS <0.10 kU/L (Class 0); M013-IGE PHOMA BETAE <0.10 kU/L (Class 0); M014-IGE EPICOCCUM PURPURASCEN <0.10 kU/L (Class 0); T007-IGE OAK WHITE <0.10 kU/L (Class 0); T008-IGE ELM AMERICAN (WHITE <0.10 kU/L (Class 0); W001-IGE RAGWEED SHORT/COMMO <0.10 kU/L (Class 0); W009-IGE PLANTAIN ENGLISH <0.10 kU/L (Class 0)
[2016-08-24] MEDS: CYCLOBENZAPRINE HCL 10 MG TABLET PO SCH (22:04)
[2016-08-24] MEDS: INSULIN GLARGINE,HUM.REC.ANLOG 300 UNIT/3 ML INSULN.PEN SUBCUT SCH (22:04)
[2016-08-25] MEDS: LEVALBUTEROL HCL NEB 1.25 MG/3 ML AMPUL NEB SCH ×4 (01:47→20:32)
[2016-08-25 05:16] LABS: HEMATOCRIT 38.1 % (36.0-47.0); HEMOGLOBIN 11.7 g/dL (12.0-15.5); MEAN CORPUSCULAR HEMOGLOBIN 21.2 pg (27.0-33.4); MEAN CORPUSCULAR HGB CONC 30.8 g/dL (32.0-36.0); MEAN CORPUSCULAR VOLUME 69 fl (80-97); RED BLOOD COUNT 5.54 10^6/uL (3.72-5.28); RED CELL DISTRIBUTION WIDTH 16.4 % (11.5-14.0); WHITE BLOOD COUNT 16.2 10^3/uL (4.0-10.5)
[2016-08-25] MEDS: LANSOPRAZOLE 30 MG TAB.RAP.DR PO SCH (05:24)
[2016-08-25] MEDS: METHYLPREDNISOLONE INJ 125 MG/2 ML SDV IV SCH (05:25)
[2016-08-25 05:33] LABS: ALANINE AMINOTRANSFERASE 27 U/L (9-52); ALBUMIN 3.5 g/dL (3.5-5.0); ALKALINE PHOSPHATASE 55 U/L (38-126); ANION GAP 14 (5-19); ASPARTATE AMINO TRANSFERASE 11 U/L (14-36); BILIRUBIN,DIRECT 0.4 mg/dL (0.0-0.4); BILIRUBIN,TOTAL 0.5 mg/dL (0.2-1.3); BLOOD UREA NITROGEN 31 mg/dL (7-20); CALCIUM 9.2 mg/dL (8.4-10.2); CARBON DIOXIDE 29 mmol/L (22-30); CHLORIDE 90 mmol/L (98-107); CREATININE RESULT 0.92 mg/dL (0.52-1.25); GLUCOSE 359 mg/dL (75-110); SODIUM 133.3 mmol/L (137-145); TOTAL PROTEIN 6.3 g/dL (6.3-8.2)
[2016-08-25] MEDS: IPRATROPIUM/ALBUTEROL 0.5-2.5 MG/3 ML AMPUL NEB PRN (05:48)
[2016-08-25 06:06] LABS: BAND NEUTROPHILS % (MANUAL) 1 % (3-5); BASOPHILS % (MANUAL) 0 % (0-2); EOSINOPHILS % (MANUAL) 0 % (0-6); LYMPHOCYTES % (MANUAL) 7 % (13-45); TOTAL CELLS COUNTED 100
[2016-08-25 06:09] LABS: ANISOCYTOSIS 1+; OVALOCYTES SLIGHT; ROULEAUX 2+; TARGET CELLS 2+; TEAR DROP CELLS SLIGHT; TOXIC GRANULATION SLIGHT; TOXIC VACUOLATION PRESENT
[2016-08-25 06:10] LABS: HYPOCHROMASIA SLIGHT; MICROCYTOSIS 2+; POIKILOCYTOSIS 2+
[2016-08-25] MEDS: BUDESONIDE NEB 0.5 MG/2 ML AMPUL NEB SCH (07:47)
[2016-08-25] MEDS: ENOXAPARIN SODIUM INJ 40 MG/0.4 ML DISP.SYRIN SUBCUT SCH (08:56)
[2016-08-25] MEDS: INSULIN LISPRO 100 UNIT/ML 3 ML VIAL SUBCUT SCH ×3 (08:56→17:01)
[2016-08-25] MEDS: INSULIN LISPRO 100 UNIT/ML 3 ML VIAL SUBCUT PRN ×4 (08:59→22:51)
[2016-08-25 10:54] LABS: E072-IGE MOUSE URINE <0.10 kU/L (Class 0); M010-IGE STEMPHYLIUM HERBARUM <0.10 kU/L (Class 0)
[2016-08-25] MEDS: METFORMIN HCL 500 MG TABLET PO SCH ×2 (11:03→17:00)
[2016-08-25] MEDS: BUDESONIDE/FORMOTEROL 160-4.5 MCG 60 PUFF/6 GM MDI IH SCH ×2 (11:04→22:51)
--- NOTE | 2016-08-25 11:38 | PDOC PROGRESS REPORT ---
Subjective Progress Note for:: 08/25/16 Subjective:: Patient has continued shortness of breath however this is much improved from admission. She denies fever, chills, chest pain. Her blood glucose has been running very high. Physical Exam Vital Signs: Temp Pulse Resp BP Pulse Ox 98.2 F 70 16 94/62 L 98 08/25/16 04:58 08/25/16 07:47 08/25/16 07:47 08/25/16 04:58 08/25/16 07:47 Intake & Output 08/24/16 08/25/16 08/26/16 06:59 06:59 06:59 Intake Total 1895 1798 Balance 1895 1798 Weight 131.3 kg 132 kg GENERAL: No acute distress HEENT: Conjunctiva clear, nonicteric, moist mucous membranes, no JVD, midline trachea RESPIRATORY: Bilateral inspiratory and expiratory wheezes, good air excursion CARDIAC: Regular rate and rhythm, no murmurs/gallops/rubs ABDOMEN: Soft, nondistended, nontender, positive bowel sounds, no rebound, no guarding EXTREMETIES: Trace bilateral lower extremity edema NEUROLOGIC: Alert, oriented to person/place/time, CN's grossly intact, no focal deficits SKIN: No rash, wounds PSYCH: Normal mood, normal affect Results Laboratory Results: 08/25/16 04:04 08/25/16 04:04 08/24/16 08/25/16 08/25/16 13:35 04:04 04:04 WBC 16.2 H RBC 5.54 H Hgb 11.7 L Hct 38.1 MCV 69 L MCH 21.2 L MCHC 30.8 L RDW 16.4 H Plt Count 215 Seg Neutrophils % Not Reportable Lymphocytes % Not Reportable Monocytes % Not Reportable Eosinophils % Not Reportable Basophils % Not Reportable Absolute Neutrophils Not Reportable Absolute Lymphocytes Not Reportable Absolute Monocytes Not Reportable Absolute Eosinophils Not Reportable Absolute Basophils Not Reportable Sodium 133.0 L 133.3 L Potassium 5.0 5.0 Chloride 89 L 90 L Carbon Dioxide 30 29 Anion Gap 14 14 BUN 30 H 31 H Creatinine 0.83 0.92 Est GFR ( Amer) > 60 > 60 Est GFR (Non-Af Amer) > 60 > 60 Glucose 392 H 359 H Calcium 9.4 9.2 Total Bilirubin 0.5 AST 11 L ALT 27 Alkaline Phosphatase 55 Total Protein 6.3 Albumin 3.5 Impressions: Chest X-Ray 08/22/16 00:00 IMPRESSION: NO SIGNIFICANT RADIOGRAPHIC FINDING IN THE CHEST. Assessment & Plan - Diagnosis (1) Acute hypoxemic respiratory failure Is this a current diagnosis for this admission?: YesPlan: Continue oxygen supplementation. Dr. Liao of pulmonary medicine following. (2) Acute asthma exacerbation Qualifiers: Asthma severity: severe persistent Qualified Code(s): J45.51 - Severe persistent asthma with (acute) exacerbation Is this a current diagnosis for this admission?: YesPlan: Gradually improving. Decrease Solu-Medrol to 40 mg IV every 8 hours. Continue bronchodilators. Continue Symbicort. Continue Singulair. (3) Diabetes mellitus type 2 in obese Is this a current diagnosis for this admission?: YesPlan: Continue metformin, Lantus, sliding scale insulin. Hyperglycemia should improve with de-escalation of steroid. (4) Hypertension Qualifiers: Hypertension type: essential hypertension Qualified Code(s): I10 - Essential (primary) hypertension Is this a current diagnosis for this admission?: YesPlan: Patient is hypotensive. Discontinue hydrochlorothiazide as patient is also on Lasix. Decrease Cozaar to 50 mg daily. (5) Leg swelling Is this a current diagnosis for this admission?: YesPlan: Continue Lasix. Discontinue hydrochlorothiazide. Check proBNP level and if elevated check echocardiogram. - Time Time Spent with patient: 35 or more minutes
[2016-08-25] MEDS ORDERED: METHYLPREDNISOLONE INJ 125 MG/2 ML SDV IV SCH (14:00)
[2016-08-25] MEDS: METHYLPREDNISOLONE INJ 40 MG/1 ML SDV IV SCH ×2 (14:28→22:51)
[2016-08-25] MEDS: LOSARTAN POTASSIUM 50 MG TABLET PO SCH (17:03)
[2016-08-25] MEDS: FUROSEMIDE 20 MG TABLET PO SCH (17:03)
[2016-08-25] MEDS: CHOLECALCIFEROL (D3) 1,000 UNIT TABLET PO SCH (17:05)
[2016-08-25] MEDS: MONTELUKAST SODIUM 10 MG TABLET PO SCH (17:06)
[2016-08-25] MEDS: STIOLTO RESPIMAT IH SCH (17:09)
[2016-08-25] MEDS: CYCLOBENZAPRINE HCL 10 MG TABLET PO SCH (22:50)
[2016-08-25] MEDS: INSULIN GLARGINE,HUM.REC.ANLOG 300 UNIT/3 ML INSULN.PEN SUBCUT SCH (22:51)
[2016-08-26] MEDS: LEVALBUTEROL HCL NEB 1.25 MG/3 ML AMPUL NEB SCH ×4 (02:22→19:57)
[2016-08-26 04:58] LABS: HEMATOCRIT 37.9 % (36.0-47.0); HEMOGLOBIN 11.6 g/dL (12.0-15.5); HGB HCT DIFFERENCE -3.1; MEAN CORPUSCULAR HEMOGLOBIN 21.2 pg (27.0-33.4); MEAN CORPUSCULAR HGB CONC 30.8 g/dL (32.0-36.0); MEAN CORPUSCULAR VOLUME 69 fl (80-97); RED BLOOD COUNT 5.48 10^6/uL (3.72-5.28); RED CELL DISTRIBUTION WIDTH 15.4 % (11.5-14.0); WHITE BLOOD COUNT 15.9 10^3/uL (4.0-10.5)
[2016-08-26 05:09] LABS: ALANINE AMINOTRANSFERASE 33 U/L (9-52); ALBUMIN 3.5 g/dL (3.5-5.0); ALKALINE PHOSPHATASE 52 U/L (38-126); ANION GAP 13 (5-19); ASPARTATE AMINO TRANSFERASE 11 U/L (14-36); BILIRUBIN,DIRECT 0.3 mg/dL (0.0-0.4); BILIRUBIN,TOTAL 0.5 mg/dL (0.2-1.3); BLOOD UREA NITROGEN 34 mg/dL (7-20); CARBON DIOXIDE 28 mmol/L (22-30); CHLORIDE 92 mmol/L (98-107); CREATININE RESULT 0.83 mg/dL (0.52-1.25); GLUCOSE 269 mg/dL (75-110); POTASSIUM 5.1 mmol/L (3.6-5.0); SODIUM 132.6 mmol/L (137-145); TOTAL PROTEIN 6.2 g/dL (6.3-8.2)
[2016-08-26 05:51] LABS: BAND NEUTROPHILS % (MANUAL) 1 % (3-5); BASOPHILS % (MANUAL) 0 % (0-2); EOSINOPHILS % (MANUAL) 0 % (0-6); LYMPHOCYTES % (MANUAL) 14 % (13-45); TOTAL CELLS COUNTED 100
[2016-08-26 05:53] LABS: ANISOCYTOSIS SLIGHT; MICROCYTOSIS 2+; OVALOCYTES SLIGHT; PLATELET CLUMPS PRESENT; TARGET CELLS 3+; TOXIC GRANULATION SLIGHT; TOXIC VACUOLATION PRESENT
[2016-08-26 05:54] LABS: HYPOCHROMASIA 1+
[2016-08-26] MEDS: LANSOPRAZOLE 30 MG TAB.RAP.DR PO SCH (06:36)
[2016-08-26] MEDS: METHYLPREDNISOLONE INJ 40 MG/1 ML SDV IV SCH (06:36)
[2016-08-26] MEDS: BUDESONIDE NEB 0.5 MG/2 ML AMPUL NEB SCH (07:54)
[2016-08-26] MEDS: INSULIN LISPRO 100 UNIT/ML 3 ML VIAL SUBCUT PRN ×4 (08:27→21:49)
[2016-08-26] MEDS: INSULIN LISPRO 100 UNIT/ML 3 ML VIAL SUBCUT SCH ×3 (08:27→17:19)
[2016-08-26] MEDS: ENOXAPARIN SODIUM INJ 40 MG/0.4 ML DISP.SYRIN SUBCUT SCH (08:28)
[2016-08-26] MEDS: POLYETHYLENE GLYCOL 3350 POWDER 17 GM/1 PACKET PO PRN (09:14)
[2016-08-26] MEDS: METFORMIN HCL 500 MG TABLET PO SCH ×2 (09:14→17:25)
[2016-08-26] MEDS: DOCUSATE SODIUM 100 MG CAPSULE PO PRN (09:14)
[2016-08-26] MEDS: BUDESONIDE/FORMOTEROL 160-4.5 MCG 60 PUFF/6 GM MDI IH SCH ×2 (09:18→21:46)
[2016-08-26] MEDS: PREDNISONE 20 MG TABLET PO SCH (10:50)
--- NOTE | 2016-08-26 11:46 | PDOC PROGRESS REPORT ---
Subjective Progress Note for:: 08/26/16 Subjective:: Patient states her shortness of breath is improving daily. She denies fever, chills, chest pain. Physical Exam Vital Signs: Temp Pulse Resp BP Pulse Ox 98.1 F 83 14 97/45 L 98 08/26/16 07:25 08/26/16 07:53 08/26/16 07:53 08/26/16 07:25 08/26/16 07:53 Intake & Output 08/25/16 08/26/16 08/27/16 06:59 06:59 06:59 Intake Total 1799 1643 Output Total 1200 Balance 1799 443 Weight 132 kg 132.4 kg GENERAL: No acute distress HEENT: Conjunctiva clear, nonicteric, moist mucous membranes, no JVD, midline trachea RESPIRATORY: Faint bilateral expiratory wheezes, good air excursion CARDIAC: Regular rate and rhythm, no murmurs/gallops/rubs ABDOMEN: Soft, nondistended, nontender, positive bowel sounds, no rebound, no guarding EXTREMETIES: Trace bilateral lower extremity edema NEUROLOGIC: Alert, oriented to person/place/time, CN's grossly intact, no focal deficits SKIN: No rash, wounds PSYCH: Normal mood, normal affect Results Laboratory Results: 08/26/16 03:55 08/26/16 03:55 08/26/16 08/26/16 03:55 03:55 WBC 15.9 H RBC 5.48 H Hgb 11.6 L Hct 37.9 MCV 69 L MCH 21.2 L MCHC 30.8 L RDW 15.4 H Plt Count 237 Seg Neutrophils % Not Reportable Lymphocytes % Not Reportable Monocytes % Not Reportable Eosinophils % Not Reportable Basophils % Not Reportable Absolute Neutrophils Not Reportable Absolute Lymphocytes Not Reportable Absolute Monocytes Not Reportable Absolute Eosinophils Not Reportable Absolute Basophils Not Reportable Sodium 132.6 L Potassium 5.1 H Chloride 92 L Carbon Dioxide 28 Anion Gap 13 BUN 34 H Creatinine 0.83 Est GFR ( Amer) > 60 Est GFR (Non-Af Amer) > 60 Glucose 269 H Calcium 9.0 Total Bilirubin 0.5 AST 11 L ALT 33 Alkaline Phosphatase 52 Total Protein 6.2 L Albumin 3.5 08/25/16 04:04 NT-Pro-B Natriuret Pep 43 Impressions: Chest X-Ray 08/22/16 00:00 IMPRESSION: NO SIGNIFICANT RADIOGRAPHIC FINDING IN THE CHEST. Assessment & Plan - Diagnosis (1) Acute hypoxemic respiratory failure Is this a current diagnosis for this admission?: YesPlan: Continue oxygen supplementation. Dr. Laio of pulmonary medicine following. (2) Acute asthma exacerbation Qualifiers: Asthma severity: severe persistent Qualified Code(s): J45.51 - Severe persistent asthma with (acute) exacerbation Is this a current diagnosis for this admission?: YesPlan: Gradually improving. Discontinue Solu-Medrol. Start prednisone. Continue bronchodilators. Continue Symbicort. Continue Singulair. (3) Diabetes mellitus type 2 in obese Is this a current diagnosis for this admission?: YesPlan: Continue metformin, Lantus, sliding scale insulin. Hyperglycemia should improve with de-escalation of steroid. (4) Hypertension Qualifiers: Hypertension type: essential hypertension Qualified Code(s): I10 - Essential (primary) hypertension Is this a current diagnosis for this admission?: YesPlan: Patient is hypotensive. Discontinued hydrochlorothiazide as patient is also on Lasix. Decreased Cozaar to 50 mg daily. (5) Leg swelling Is this a current diagnosis for this admission?: YesPlan: Continue Lasix. Discontinued hydrochlorothiazide. ProBNP level only 43. - Time Time Spent with patient: 25-34 minutes Anticipated discharge: Home Within: within 48 hours
[2016-08-26] MEDS: CHOLECALCIFEROL (D3) 1,000 UNIT TABLET PO SCH (17:23)
[2016-08-26] MEDS: FUROSEMIDE 20 MG TABLET PO SCH (17:23)
[2016-08-26] MEDS: LOSARTAN POTASSIUM 50 MG TABLET PO SCH (17:24)
[2016-08-26] MEDS: MONTELUKAST SODIUM 10 MG TABLET PO SCH (17:25)
[2016-08-26] MEDS: STIOLTO RESPIMAT IH SCH (17:26)
[2016-08-26] MEDS ORDERED: MAGNESIUM HYDROXIDE SUSP 30 ML UDCUP PO ONE (18:30)
[2016-08-26] MEDS: CYCLOBENZAPRINE HCL 10 MG TABLET PO SCH (21:46)
[2016-08-26] MEDS: INSULIN GLARGINE,HUM.REC.ANLOG 300 UNIT/3 ML INSULN.PEN SUBCUT SCH (21:46)
[2016-08-27] MEDS: LEVALBUTEROL HCL NEB 1.25 MG/3 ML AMPUL NEB SCH ×4 (02:03→20:47)
[2016-08-27 05:19] LABS: ABSOLUTE LYMPHOCYTES (AUTO) 3.3 10^3/uL (0.5-4.7); ABSOLUTE MONOCYTES (AUTO) 0.8 10^3/uL (0.1-1.4); ABSOLUTE NEUT (AUTO) 11.7 10^3/uL (1.7-8.2); BASOPHILS % (AUTO) 0.2 % (0-2); EOSINOPHILS % (AUTO) 0.2 % (0-6); HEMATOCRIT 35.4 % (36.0-47.0); HGB HCT DIFFERENCE -2.4; MEAN CORPUSCULAR HEMOGLOBIN 21.5 pg (27.0-33.4); MEAN CORPUSCULAR HGB CONC 31.2 g/dL (32.0-36.0); MEAN CORPUSCULAR VOLUME 69 fl (80-97); RED BLOOD COUNT 5.13 10^6/uL (3.72-5.28); RED CELL DISTRIBUTION WIDTH 15.3 % (11.5-14.0); SEGMENTED NEUTROPHILS % (AUTO) 73.6 % (42-78)
[2016-08-27 05:31] LABS: ALANINE AMINOTRANSFERASE 28 U/L (9-52); ALBUMIN 3.1 g/dL (3.5-5.0); ALKALINE PHOSPHATASE 47 U/L (38-126); ANION GAP 11 (5-19); ASPARTATE AMINO TRANSFERASE 11 U/L (14-36); BILIRUBIN,DIRECT 0.3 mg/dL (0.0-0.4); BILIRUBIN,TOTAL 0.4 mg/dL (0.2-1.3); BLOOD UREA NITROGEN 32 mg/dL (7-20); CALCIUM 8.5 mg/dL (8.4-10.2); CARBON DIOXIDE 29 mmol/L (22-30); CHLORIDE 93 mmol/L (98-107); CREATININE RESULT 0.77 mg/dL (0.52-1.25); GLUCOSE 272 mg/dL (75-110); POTASSIUM 4.6 mmol/L (3.6-5.0); SODIUM 133.1 mmol/L (137-145); TOTAL PROTEIN 5.1 g/dL (6.3-8.2)
[2016-08-27] MEDS: LANSOPRAZOLE 30 MG TAB.RAP.DR PO SCH (06:48)
[2016-08-27] MEDS: BUDESONIDE NEB 0.5 MG/2 ML AMPUL NEB SCH (08:29)
[2016-08-27] MEDS: ENOXAPARIN SODIUM INJ 40 MG/0.4 ML DISP.SYRIN SUBCUT SCH (09:04)
[2016-08-27] MEDS: INSULIN LISPRO 100 UNIT/ML 3 ML VIAL SUBCUT SCH ×3 (09:04→17:40)
[2016-08-27] MEDS: INSULIN LISPRO 100 UNIT/ML 3 ML VIAL SUBCUT PRN ×4 (09:04→21:55)
[2016-08-27] MEDS: BUDESONIDE/FORMOTEROL 160-4.5 MCG 60 PUFF/6 GM MDI IH SCH ×2 (09:05→21:19)
[2016-08-27] MEDS: PREDNISONE 20 MG TABLET PO SCH (09:05)
[2016-08-27] MEDS: METFORMIN HCL 500 MG TABLET PO SCH ×2 (09:05→18:23)
--- NOTE | 2016-08-27 12:41 | PDOC PROGRESS REPORT ---
Subjective Progress Note for:: 08/27/16 Subjective:: I am feeling better Physical Exam Vital Signs: Temp Pulse Resp BP Pulse Ox 98.3 F 82 16 97/56 L 96 08/27/16 07:13 08/27/16 08:33 08/27/16 08:33 08/27/16 07:13 08/27/16 08:33 Intake & Output 08/26/16 08/27/16 08/28/16 06:59 06:59 06:59 Intake Total 1643 1105 Output Total 1200 2300 Balance 443 -1195 Weight 132.4 kg 132.4 kg General appearance: PRESENT: no acute distress, cooperative, disheveled, morbidly obese, well-developed Head exam: PRESENT: atraumatic, normocephalic Eye exam: PRESENT: conjunctiva pale, EOMI Mouth exam: PRESENT: dry mucosa, neck supple, tongue midline Neck exam: ABSENT: carotid bruit, JVD, lymphadenopathy, thyromegaly Respiratory exam: PRESENT: decreased breath sounds, prolonged expiratory phas, symmetrical, unlabored, other - Significant increase in airflow and lack of wheezes over the last 24 hours Cardiovascular exam: PRESENT: RRR, +S1, +S2 Pulses: PRESENT: normal radial pulses GI/Abdominal exam: PRESENT: normal bowel sounds, soft. ABSENT: distended, guarding, mass, organolmegaly, rebound, tenderness Rectal exam: PRESENT: deferred Musculoskeletal exam: PRESENT: normal inspection Neurological exam: PRESENT: alert, awake Skin exam: PRESENT: dry, warm Results Laboratory Results: 08/27/16 05:03 08/27/16 05:03 08/27/16 08/27/16 05:03 05:03 WBC 16.0 H RBC 5.13 Hgb 11.0 L Hct 35.4 L MCV 69 L MCH 21.5 L MCHC 31.2 L RDW 15.3 H Plt Count 224 Seg Neutrophils % 73.6 Lymphocytes % 21.0 Monocytes % 5.0 Eosinophils % 0.2 Basophils % 0.2 Absolute Neutrophils 11.7 H Absolute Lymphocytes 3.3 Absolute Monocytes 0.8 Absolute Eosinophils 0.0 Absolute Basophils 0.0 Sodium 133.1 L Potassium 4.6 Chloride 93 L Carbon Dioxide 29 Anion Gap 11 BUN 32 H Creatinine 0.77 Est GFR ( Amer) > 60 Est GFR (Non-Af Amer) > 60 Glucose 272 H Calcium 8.5 Total Bilirubin 0.4 AST 11 L ALT 28 Alkaline Phosphatase 47 Total Protein 5.1 L Albumin 3.1 L 08/25/16 04:04 NT-Pro-B Natriuret Pep 43 Impressions: Chest X-Ray 08/22/16 00:00 IMPRESSION: NO SIGNIFICANT RADIOGRAPHIC FINDING IN THE CHEST. Assessment & Plan - Diagnosis (1) Acute asthma exacerbation Qualifiers: Asthma severity: severe persistent Qualified Code(s): J45.51 - Severe persistent asthma with (acute) exacerbation Is this a current diagnosis for this admission?: YesPlan: Improved significantly over the last 24 hours (2) Acute hypoxemic respiratory failure Is this a current diagnosis for this admission?: YesPlan: Improving (3) Pneumonia Qualifiers: Pneumonia type: due to unspecified organism Laterality: left Lung location: lower lobe of lung Qualified Code(s): J18.1 - Lobar pneumonia, unspecified organism Is this a current diagnosis for this admission?: Yes
--- NOTE | 2016-08-27 12:43 | PDOC PROGRESS REPORT ---
Subjective Progress Note for:: 08/23/16 Subjective:: I am a little better Physical Exam Vital Signs: Temp Pulse Resp BP Pulse Ox 98.0 F 84 18 132/71 H 95 08/23/16 07:23 08/23/16 07:39 08/23/16 07:39 08/23/16 07:23 08/23/16 07:39 Intake & Output 08/22/16 08/23/16 08/24/16 06:59 06:59 06:59 Intake Total 2153 2073 Output Total 0 Balance 2153 2073 Weight 132.5 kg 132.7 kg General appearance: PRESENT: no acute distress, cooperative, disheveled, morbidly obese, well-developed Head exam: PRESENT: atraumatic, normocephalic Eye exam: PRESENT: conjunctiva pale, EOMI Mouth exam: PRESENT: dry mucosa, neck supple, tongue midline Neck exam: ABSENT: carotid bruit, JVD, lymphadenopathy, thyromegaly Respiratory exam: PRESENT: decreased breath sounds, prolonged expiratory phas, rhonchi, symmetrical, wheezes Cardiovascular exam: PRESENT: RRR, +S1, +S2 Pulses: PRESENT: normal radial pulses GI/Abdominal exam: PRESENT: normal bowel sounds, soft. ABSENT: distended, guarding, mass, organolmegaly, rebound, tenderness Rectal exam: PRESENT: deferred Musculoskeletal exam: PRESENT: normal inspection Neurological exam: PRESENT: awake Psychiatric exam: PRESENT: normal mood Skin exam: PRESENT: dry, warm Results Laboratory Results: 08/23/16 05:00 08/23/16 05:00 08/22/16 08/23/16 08/23/16 14:44 05:00 05:00 WBC 17.2 H RBC 5.59 H Hgb 11.9 L Hct 38.6 MCV 69 L MCH 21.3 L MCHC 30.9 L RDW 15.8 H Plt Count 240 Seg Neutrophils % Not Reportable Lymphocytes % Not Reportable Monocytes % Not Reportable Eosinophils % Not Reportable Basophils % Not Reportable Absolute Neutrophils Not Reportable Absolute Lymphocytes Not Reportable Absolute Monocytes Not Reportable Absolute Eosinophils Not Reportable Absolute Basophils Not Reportable Carbonic Acid 1.44 H HCO3/H2CO3 Ratio 21:1 ABG pH 7.42 ABG pCO2 47.7 H ABG pO2 91.1 ABG HCO3 30.4 H ABG O2 Saturation 97.0 ABG Base Excess 5.0 FiO2 2L Sodium 132.1 L Potassium 5.3 H Chloride 91 L Carbon Dioxide 31 H Anion Gap 10 BUN 38 H Creatinine 0.74 Est GFR ( Amer) > 60 Est GFR (Non-Af Amer) > 60 Glucose 406 H* Calcium 8.8 Impressions: Chest X-Ray 08/22/16 00:00 IMPRESSION: NO SIGNIFICANT RADIOGRAPHIC FINDING IN THE CHEST. Assessment & Plan - Diagnosis (1) Acute asthma exacerbation Qualifiers: Asthma severity: severe persistent Qualified Code(s): J45.51 - Severe persistent asthma with (acute) exacerbation Is this a current diagnosis for this admission?: Yes (2) Acute hypoxemic respiratory failure Is this a current diagnosis for this admission?: Yes
[2016-08-27] MEDS: ACETAMINOPHEN WITH CODEINE #3 TABLET PO PRN (12:45)
--- NOTE | 2016-08-27 12:46 | PDOC CONSULTATION ---
Consultation Consult Date: 08/22/16 Attending physician:: NATALIE PORRAS Consult reason:: asthma History of Present Illness Admission Date/PCP: 08/15/16 17:00 NATALIE PORRAS History of Present Illness: NOEMI ALAMO is a 55 year old female with hx of severe persistent asthma/ DM2/HTN/Tuan. 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 She satrted having cough- productive of brownish sputum, severe dyspne and wheezes. She went to ER in [place] 3 days ago and was discharged on prednisone 60 mg qd. She started having worsening of her symptoms on arrival to [place], hence she came to ER for evaluation and mgt.She admits to exposure to passive smoke as a child as well as an adult.She denies any occupational exposure to significant respiratory toxins. She denies recent travel. She denies angina-like chest pain sleeps on 2 pillows occasional PND occasional nocturnal cough and occasional edema. Past Medical History Cardiac Medical History: Reports: Hypertension Pulmonary Medical History: Reports: Asthma Neurological Medical History: Reports: Migraine Endocrine Medical History: Reports: Diabetes Mellitus Type 2 Past Surgical History Past Surgical History: Reports: Section Social History Information Source: Patient, DrAminta Office, [facility] Records Lives with: Family Smoking Status: Never Smoker Passive smoke exposure as: Child Frequency of Alcohol Use: Social Hx Recreational Drug Use: No Hx Prescription Drug Abuse: No - Advance Directive Resuscitation Status: Full Code Family History Family History: DM, Hypertension Parental Family History Reviewed: Yes Children Family History Reviewed: Yes Sibling(s) Family History Reviewed.: Yes Medication/Allergy Home Medications: Acetaminophen with Codeine [Tylenol #3 Tablet] 1 tab PO Q12HP PRN 08/15/16 Albuterol Sulfate [Ventolin Hfa] 2 puff IH Q4HP PRN 08/15/16 Budesonide [Pulmicort Neb 0.5 mg/2 ml Ampul] 2 ml IH QPM 08/15/16 Budesonide/Formoterol Fumarate [Symbicort HFA 160-4.5 mcg Inhaler 6 gm] 2 puff IH Q12 08/15/16 Cholecalciferol (Vitamin D3) [Vitamin D3 2000 unit Tablet] 2,000 unit PO QPM 09/24 Cyclobenzaprine HCl [Flexeril 10 mg Tablet] 10 mg PO QHS 08/15/16 Furosemide [Lasix 20 mg Tablet] 20 mg PO QPM 08/15/16 Ibuprofen [Motrin 800 mg Tablet] 800 mg PO Q8HP PRN 08/15/16 Ipratropium/Albuterol Sulfate [Duoneb 3 ml Ampul] 3 ml NEB RTQ6HP PRN 08/15/16 Losartan/Hydrochlorothiazide [Hyzaar 100-25 Tablet] 1 tab PO QPM 08/15/16 Metformin HCl [Glucophage] 1,000 mg PO BID 08/15/16 Montelukast Sodium [Singulair 10 mg Tablet] 10 mg PO QPM 08/15/16 Prednisone [Deltasone 20 mg Tablet] 60 mg PO DAILY 08/15/16 Tiotropium Br/Olodaterol HCl [Stiolto Respimat Inhal [place]] 2 puff IH QPM Allergies/Adverse Reactions: lisinopril Allergy (Verified 08/15/16 12:25) oxycodone [From Percocet] Allergy (Verified 08/15/16 12:25) Physical Exam Vital Signs: Temp Pulse Resp BP Pulse Ox 97.8 F 69 16 142/70 H 96 08/22/16 07:45 08/22/16 08:26 08/22/16 08:26 08/22/16 07:45 08/22/16 08:26 Intake & Output 08/21/16 08/22/16 08/23/16 06:59 06:59 06:59 Intake Total 1325 2154 Balance 1325 2154 Weight 130.6 kg 132.5 kg General appearance: PRESENT: cooperative, disheveled, mild distress, morbidly obese, well-developed Head exam: PRESENT: atraumatic, normocephalic Eye exam: PRESENT: conjunctiva pale, EOMI Mouth exam: PRESENT: dry mucosa, neck supple, tongue midline Neck exam: ABSENT: carotid bruit, JVD, lymphadenopathy, thyromegaly Respiratory exam: PRESENT: decreased breath sounds, prolonged expiratory phas, rales, rhonchi, symmetrical, wheezes Cardiovascular exam: PRESENT: RRR, +S1, +S2 Pulses: PRESENT: normal radial pulses GI/Abdominal exam: PRESENT: normal bowel sounds, soft. ABSENT: distended, guarding, mass, organolmegaly, rebound, tenderness Rectal exam: PRESENT: deferred Musculoskeletal exam: PRESENT: normal inspection Neurological exam: PRESENT: awake Psychiatric exam: PRESENT: normal mood Skin exam: PRESENT: dry, warm Results Laboratory Results: 08/22/16 06:08 08/22/16 06:08 08/22/16 08/22/16 06:08 06:08 WBC 16.7 H RBC 5.61 H Hgb 11.8 L Hct 38.7 MCV 69 L MCH 21.1 L MCHC 30.6 L RDW 15.6 H Plt Count 288 Seg Neutrophils % 91.0 H Lymphocytes % 6.2 L Monocytes % 2.6 L Eosinophils % 0.0 Basophils % 0.2 Absolute Neutrophils 15.2 H Absolute Lymphocytes 1.0 Absolute Monocytes 0.4 Absolute Eosinophils 0.0 Absolute Basophils 0.0 Sodium 134.5 L Potassium 4.7 Chloride 91 L Carbon Dioxide 32 H Anion Gap 12 BUN 37 H Creatinine 0.85 Est GFR ( Amer) > 60 Est GFR (Non-Af Amer) > 60 Glucose 384 H Calcium 9.5 Impressions: Chest X-Ray 08/15/16 11:26 IMPRESSION: Atelectasis or early pneumonia left lower lobe. Clinical correlation is needed. Assessment & Plan - Diagnosis (1) Acute asthma exacerbation Qualifiers: Asthma severity: severe persistent Qualified Code(s): J45.51 - Severe persistent asthma with (acute) exacerbation Is this a current diagnosis for this admission?: Yes (2) Acute hypoxemic respiratory failure Is this a current diagnosis for this admission?: Yes (3) Pneumonia Qualifiers: Pneumonia type: due to unspecified organism Laterality: left Lung location: lower lobe of lung Qualified Code(s): J18.1 - Lobar pneumonia, unspecified organism Is this a current diagnosis for this admission?: Yes
--- NOTE | 2016-08-27 13:08 | PDOC PROGRESS REPORT ---
Subjective Progress Note for:: 08/27/16 Subjective:: She is feeling better; dyspnea and wheezes have decreased .Ct to monitor her at [facility].She has leukocytosis due to steroids; she has no fever and her vital signs are stable.She is now on Prednisone 60 mg qd po.She was seen in consult today by financial reporting analyst, Dr Liao. Repeat chest xray did not show any abnormality.We will add Lantus 30 iu to optimize her diabetic control since her blood sugar is uncontrolled due to steroids.She is better today and we will continue to monitor her closely. Physical Exam Vital Signs: Temp Pulse Resp BP Pulse Ox 98.3 F 82 16 97/56 L 96 08/27/16 07:13 08/27/16 08:33 08/27/16 08:33 08/27/16 07:13 08/27/16 08:33 Intake & Output 08/26/16 08/27/16 08/28/16 06:59 06:59 06:59 Intake Total 1643 1105 Output Total 1200 2300 Balance 443 -1195 Weight 132.4 kg 132.4 kg General appearance: PRESENT: mild distress, morbidly obese Head exam: PRESENT: atraumatic, normocephalic Eye exam: PRESENT: EOMI, PERRLA Ear exam: PRESENT: normal external ear exam, TM's normal bilaterally Mouth exam: PRESENT: moist, neck supple Neck exam: PRESENT: full ROM Respiratory exam: PRESENT: decreased breath sounds, symmetrical, wheezes Cardiovascular exam: PRESENT: +S1, +S2 Pulses: PRESENT: +2 pedal pulses bilateral GI/Abdominal exam: PRESENT: normal bowel sounds, soft Rectal exam: PRESENT: deferred Extremities exam: PRESENT: full ROM Musculoskeletal exam: PRESENT: full ROM Neurological exam: PRESENT: alert, awake, oriented to person, oriented to place , oriented to time Psychiatric exam: PRESENT: normal mood Results Laboratory Results: 08/27/16 05:03 08/27/16 05:03 08/27/16 08/27/16 05:03 05:03 WBC 16.0 H RBC 5.13 Hgb 11.0 L Hct 35.4 L MCV 69 L MCH 21.5 L MCHC 31.2 L RDW 15.3 H Plt Count 224 Seg Neutrophils % 73.6 Lymphocytes % 21.0 Monocytes % 5.0 Eosinophils % 0.2 Basophils % 0.2 Absolute Neutrophils 11.7 H Absolute Lymphocytes 3.3 Absolute Monocytes 0.8 Absolute Eosinophils 0.0 Absolute Basophils 0.0 Sodium 133.1 L Potassium 4.6 Chloride 93 L Carbon Dioxide 29 Anion Gap 11 BUN 32 H Creatinine 0.77 Est GFR ( Amer) > 60 Est GFR (Non-Af Amer) > 60 Glucose 272 H Calcium 8.5 Total Bilirubin 0.4 AST 11 L ALT 28 Alkaline Phosphatase 47 Total Protein 5.1 L Albumin 3.1 L 08/25/16 04:04 NT-Pro-B Natriuret Pep 43 Impressions: Chest X-Ray 08/22/16 00:00 IMPRESSION: NO SIGNIFICANT RADIOGRAPHIC FINDING IN THE CHEST. Assessment & Plan - Diagnosis (1) Acute asthma exacerbation Qualifiers: Asthma severity: severe persistent Qualified Code(s): J45.51 - Severe persistent asthma with (acute) exacerbation Is this a current diagnosis for this admission?: YesPlan: Ct with Oxygen 2 l/min; Duonebs q4h prn; Xopenex nebs 1.25 mg q6h; Prednisone 60 mg qd po; Levaquin 500mg qd po; Symbicort 160/4.5 2 puffs BID; Pulmicort nebs 2ml qpm; Stiolto Respimat 2 puffs daily; Singulair 10 mg qd po. (2) Pneumonia Qualifiers: Pneumonia type: due to unspecified organism Laterality: left Lung location: lower lobe of lung Qualified Code(s): J18.1 - Lobar pneumonia, unspecified organism Is this a current diagnosis for this admission?: YesPlan: Ct with Levaquin 500 mg qd po; Tylenol 650 mg q4h prn po; F/u blood culture and sputum culture. (3) Diabetes mellitus type 2 in obese Is this a current diagnosis for this admission?: YesPlan: Ct with Metformin 1000mg BID po;Accucheck QAC, QHS with slidding scale with humalog insulin [facility] protocol; Humalog insulin 10 iu QAC subcut.1800 calorie ADA diet. Add Lantus 30 iu qhs subcut. (4) Hypertension Qualifiers: Hypertension type: essential hypertension Qualified Code(s): I10 - Essential (primary) hypertension Is this a current diagnosis for this admission?: YesPlan: Ct with Losartan/HCTZ 100/25 1 qd po; 2g sodium diet. (5) Leg swelling Is this a current diagnosis for this admission?: YesPlan: Ct with Lasix 20 mg qd po; elevate legs. (6) Osteoarthritis Qualifiers: Osteoarthritis location: knee Laterality: bilateral Is this a current diagnosis for this admission?: YesPlan: Ct with Tylenol #3 1 BID po prn; Flexeril 5 mg qhs . (7) Vitamin D deficiency Is this a current diagnosis for this admission?: YesPlan: Ct with Vitamin D 2000iu qd po. (8) DVT prophylaxis Is this a current diagnosis for this admission?: YesPlan: Ct with Lovenox 40 mg qd subcut; SCD.
[2016-08-27] MEDS: LOSARTAN POTASSIUM 50 MG TABLET PO SCH (18:23)
[2016-08-27] MEDS: IBUPROFEN 800 MG TABLET PO PRN (18:23)
[2016-08-27] MEDS: MONTELUKAST SODIUM 10 MG TABLET PO SCH (18:23)
[2016-08-27] MEDS: STIOLTO RESPIMAT IH SCH (18:23)
[2016-08-27] MEDS: FUROSEMIDE 20 MG TABLET PO SCH (18:23)
[2016-08-27] MEDS: CHOLECALCIFEROL (D3) 1,000 UNIT TABLET PO SCH (18:27)
[2016-08-27] MEDS: CYCLOBENZAPRINE HCL 10 MG TABLET PO SCH (21:19)
[2016-08-27] MEDS: INSULIN GLARGINE,HUM.REC.ANLOG 300 UNIT/3 ML INSULN.PEN SUBCUT SCH (21:53)
[2016-08-28] MEDS: ACETAMINOPHEN WITH CODEINE #3 TABLET PO PRN (00:21)
[2016-08-28] MEDS: LEVALBUTEROL HCL NEB 1.25 MG/3 ML AMPUL NEB SCH ×4 (02:01→20:43)
[2016-08-28 04:27] LABS: ABSOLUTE LYMPHOCYTES (AUTO) 3.6 10^3/uL (0.5-4.7); ABSOLUTE MONOCYTES (AUTO) 0.7 10^3/uL (0.1-1.4); ABSOLUTE NEUT (AUTO) 10.2 10^3/uL (1.7-8.2); BASOPHILS % (AUTO) 0.3 % (0-2); EOSINOPHILS % (AUTO) 0.3 % (0-6); HEMATOCRIT 33.6 % (36.0-47.0); HEMOGLOBIN 10.6 g/dL (12.0-15.5); HGB HCT DIFFERENCE -1.8; LYMPHOCYTES % (AUTO) 24.7 % (13-45); MEAN CORPUSCULAR HEMOGLOBIN 21.4 pg (27.0-33.4); MEAN CORPUSCULAR HGB CONC 31.6 g/dL (32.0-36.0); MEAN CORPUSCULAR VOLUME 68 fl (80-97); RED BLOOD COUNT 4.95 10^6/uL (3.72-5.28); RED CELL DISTRIBUTION WIDTH 15.5 % (11.5-14.0); SEGMENTED NEUTROPHILS % (AUTO) 69.7 % (42-78); WHITE BLOOD COUNT 14.6 10^3/uL (4.0-10.5)
[2016-08-28 04:40] LABS: ANION GAP 10 (5-19); BLOOD UREA NITROGEN 33 mg/dL (7-20); CALCIUM 8.6 mg/dL (8.4-10.2); CARBON DIOXIDE 29 mmol/L (22-30); CHLORIDE 96 mmol/L (98-107); CREATININE RESULT 0.79 mg/dL (0.52-1.25); GLUCOSE 197 mg/dL (75-110); POTASSIUM 4.3 mmol/L (3.6-5.0); SODIUM 134.8 mmol/L (137-145)
[2016-08-28] MEDS: LANSOPRAZOLE 30 MG TAB.RAP.DR PO SCH (06:23)
[2016-08-28] MEDS: INSULIN LISPRO 100 UNIT/ML 3 ML VIAL SUBCUT SCH ×3 (08:31→16:18)
[2016-08-28] MEDS: INSULIN LISPRO 100 UNIT/ML 3 ML VIAL SUBCUT PRN ×3 (08:32→16:18)
[2016-08-28] MEDS: ENOXAPARIN SODIUM INJ 40 MG/0.4 ML DISP.SYRIN SUBCUT SCH (08:32)
[2016-08-28] MEDS: METFORMIN HCL 500 MG TABLET PO SCH ×2 (08:32→17:02)
[2016-08-28] MEDS: PREDNISONE 20 MG TABLET PO SCH (08:32)
[2016-08-28] MEDS: IBUPROFEN 800 MG TABLET PO PRN ×2 (08:33→21:15)
[2016-08-28] MEDS: BUDESONIDE NEB 0.5 MG/2 ML AMPUL NEB SCH (08:57)
[2016-08-28] MEDS: BUDESONIDE/FORMOTEROL 160-4.5 MCG 60 PUFF/6 GM MDI IH SCH ×2 (09:38→21:15)
[2016-08-28] MEDS: IPRATROPIUM/ALBUTEROL 0.5-2.5 MG/3 ML AMPUL NEB PRN (13:18)
[2016-08-28] MEDS: CHOLECALCIFEROL (D3) 1,000 UNIT TABLET PO SCH (17:02)
[2016-08-28] MEDS: FUROSEMIDE 20 MG TABLET PO SCH (17:02)
[2016-08-28] MEDS: LOSARTAN POTASSIUM 50 MG TABLET PO SCH (17:02)
[2016-08-28] MEDS: MONTELUKAST SODIUM 10 MG TABLET PO SCH (17:03)
--- NOTE | 2016-08-28 17:10 | PDOC PROGRESS REPORT ---
Subjective Progress Note for:: 08/28/16 Subjective:: She is feeling better; dyspnea and wheezes have decreased .Ct to monitor her at [facility].She has leukocytosis due to steroids; she has no fever and her vital signs are stable.We will decrease Prednisone 40 mg qd po.She was seen in consult today by bisque cleaner, Dr Liao. Repeat chest xray did not show any abnormality.We will add Lantus 30 iu to optimize her diabetic control since her blood sugar is uncontrolled due to steroids.She is better today and we will continue to monitor her closely. For possible discharge home tomorrow. Physical Exam Vital Signs: Temp Pulse Resp BP Pulse Ox 98.5 F 98 18 111/70 96 08/28/16 16:05 08/28/16 16:05 08/28/16 16:05 08/28/16 16:05 08/28/16 16:05 Intake & Output 08/27/16 08/28/16 08/29/16 06:59 06:59 06:59 Intake Total 1105 1615 Output Total 2300 2500 Balance -1195 -885 Weight 132.4 kg 134.4 kg General appearance: PRESENT: no acute distress, cooperative, morbidly obese Eye exam: PRESENT: EOMI, PERRLA Ear exam: PRESENT: normal external ear exam, TM's normal bilaterally Mouth exam: PRESENT: moist, neck supple, tongue midline Neck exam: PRESENT: full ROM Respiratory exam: PRESENT: decreased breath sounds, wheezes Cardiovascular exam: PRESENT: +S1, +S2 Pulses: PRESENT: +2 pedal pulses bilateral GI/Abdominal exam: PRESENT: normal bowel sounds, soft Rectal exam: PRESENT: deferred Extremities exam: PRESENT: full ROM Musculoskeletal exam: PRESENT: full ROM Neurological exam: PRESENT: alert, awake, oriented to person, oriented to place , oriented to time Psychiatric exam: PRESENT: normal mood Results Laboratory Results: 08/28/16 03:53 08/28/16 03:53 08/28/16 08/28/16 03:53 03:53 WBC 14.6 H RBC 4.95 Hgb 10.6 L Hct 33.6 L MCV 68 L MCH 21.4 L MCHC 31.6 L RDW 15.5 H Plt Count 220 Seg Neutrophils % 69.7 Lymphocytes % 24.7 Monocytes % 5.0 Eosinophils % 0.3 Basophils % 0.3 Absolute Neutrophils 10.2 H Absolute Lymphocytes 3.6 Absolute Monocytes 0.7 Absolute Eosinophils 0.0 Absolute Basophils 0.0 Sodium 134.8 L Potassium 4.3 Chloride 96 L Carbon Dioxide 29 Anion Gap 10 BUN 33 H Creatinine 0.79 Est GFR ( Amer) > 60 Est GFR (Non-Af Amer) > 60 Glucose 197 H Calcium 8.6 08/25/16 04:04 NT-Pro-B Natriuret Pep 43 Impressions: Chest X-Ray 08/22/16 00:00 IMPRESSION: NO SIGNIFICANT RADIOGRAPHIC FINDING IN THE CHEST. Assessment & Plan - Diagnosis (1) Acute asthma exacerbation Qualifiers: Asthma severity: severe persistent Qualified Code(s): J45.51 - Severe persistent asthma with (acute) exacerbation Is this a current diagnosis for this admission?: YesPlan: Ct with Oxygen 2 l/min; Duonebs q4h prn; Xopenex nebs 1.25 mg q6h; Prednisone 60 mg qd po; Levaquin 500mg qd po; Symbicort 160/4.5 2 puffs BID; Pulmicort nebs 2ml qpm; Stiolto Respimat 2 puffs daily; Singulair 10 mg qd po. (2) Pneumonia Qualifiers: Pneumonia type: due to unspecified organism Laterality: left Lung location: lower lobe of lung Qualified Code(s): J18.1 - Lobar pneumonia, unspecified organism Is this a current diagnosis for this admission?: YesPlan: Ct with Levaquin 500 mg qd po; Tylenol 650 mg q4h prn po; F/u blood culture and sputum culture. (3) Diabetes mellitus type 2 in obese Is this a current diagnosis for this admission?: YesPlan: Ct with Metformin 1000mg BID po;Accucheck QAC, QHS with slidding scale with humalog insulin [facility] protocol; Humalog insulin 10 iu QAC subcut.1800 calorie ADA diet. Add Lantus 30 iu qhs subcut. (4) Hypertension Qualifiers: Hypertension type: essential hypertension Qualified Code(s): I10 - Essential (primary) hypertension Is this a current diagnosis for this admission?: YesPlan: Ct with Losartan/HCTZ 100/25 1 qd po; 2g sodium diet. (5) Leg swelling Is this a current diagnosis for this admission?: YesPlan: Ct with Lasix 20 mg qd po; elevate legs. (6) Osteoarthritis Qualifiers: Osteoarthritis location: knee Laterality: bilateral Is this a current diagnosis for this admission?: YesPlan: Ct with Tylenol #3 1 BID po prn; Flexeril 5 mg qhs . (7) Vitamin D deficiency Is this a current diagnosis for this admission?: YesPlan: Ct with Vitamin D 2000iu qd po. (8) DVT prophylaxis Is this a current diagnosis for this admission?: YesPlan: Ct with Lovenox 40 mg qd subcut; SCD. - Time Time Spent with patient: 35 or more minutes Medications reviewed and adjusted accordingly: Yes Anticipated discharge: Home Within: within 24 hours
[2016-08-28] MEDS: STIOLTO RESPIMAT IH SCH (17:14)
[2016-08-28] MEDS: CYCLOBENZAPRINE HCL 10 MG TABLET PO SCH (21:15)
[2016-08-28] MEDS: INSULIN GLARGINE,HUM.REC.ANLOG 300 UNIT/3 ML INSULN.PEN SUBCUT SCH (22:15)
[2016-08-29] MEDS: LEVALBUTEROL HCL NEB 1.25 MG/3 ML AMPUL NEB SCH ×3 (02:22→13:54)
[2016-08-29 05:05] LABS: ABSOLUTE LYMPHOCYTES (AUTO) 4.2 10^3/uL (0.5-4.7); ABSOLUTE MONOCYTES (AUTO) 0.7 10^3/uL (0.1-1.4); ABSOLUTE NEUT (AUTO) 9.2 10^3/uL (1.7-8.2); BASOPHILS % (AUTO) 0.3 % (0-2); EOSINOPHILS % (AUTO) 0.1 % (0-6); HEMOGLOBIN 10.4 g/dL (12.0-15.5); HGB HCT DIFFERENCE -1.8; LYMPHOCYTES % (AUTO) 29.8 % (13-45); MEAN CORPUSCULAR HEMOGLOBIN 21.4 pg (27.0-33.4); MEAN CORPUSCULAR HGB CONC 31.5 g/dL (32.0-36.0); MEAN CORPUSCULAR VOLUME 68 fl (80-97); MONOCYTES % (AUTO) 5.1 % (3-13); RED BLOOD COUNT 4.87 10^6/uL (3.72-5.28); RED CELL DISTRIBUTION WIDTH 15.7 % (11.5-14.0); SEGMENTED NEUTROPHILS % (AUTO) 64.7 % (42-78); WHITE BLOOD COUNT 14.2 10^3/uL (4.0-10.5)
[2016-08-29 05:32] LABS: ANION GAP 11 (5-19); BLOOD UREA NITROGEN 30 mg/dL (7-20); CARBON DIOXIDE 27 mmol/L (22-30); CHLORIDE 95 mmol/L (98-107); CREATININE RESULT 0.82 mg/dL (0.52-1.25); GLUCOSE 276 mg/dL (75-110); POTASSIUM 4.5 mmol/L (3.6-5.0); SODIUM 132.8 mmol/L (137-145)
[2016-08-29] MEDS: LANSOPRAZOLE 30 MG TAB.RAP.DR PO SCH (06:18)
[2016-08-29] MEDS: BUDESONIDE NEB 0.5 MG/2 ML AMPUL NEB SCH (08:22)
[2016-08-29] MEDS: IPRATROPIUM/ALBUTEROL 0.5-2.5 MG/3 ML AMPUL NEB PRN (08:22)
[2016-08-29] MEDS: INSULIN LISPRO 100 UNIT/ML 3 ML VIAL SUBCUT PRN (08:26)
[2016-08-29] MEDS: INSULIN LISPRO 100 UNIT/ML 3 ML VIAL SUBCUT SCH ×2 (08:26→11:40)
[2016-08-29] MEDS: ENOXAPARIN SODIUM INJ 40 MG/0.4 ML DISP.SYRIN SUBCUT SCH (09:13)
[2016-08-29] MEDS: BUDESONIDE/FORMOTEROL 160-4.5 MCG 60 PUFF/6 GM MDI IH SCH (09:15)
[2016-08-29] MEDS: PREDNISONE 20 MG TABLET PO SCH (09:15)
[2016-08-29] MEDS: METFORMIN HCL 500 MG TABLET PO SCH (09:15)
[2016-08-29] MEDS: IBUPROFEN 800 MG TABLET PO PRN (11:39)
--- NOTE | 2016-08-29 12:21 | PDOC DISCHARGE SUMMARY ---
General - Admit/Disc Date/PCP Admission Date/Primary Care Provider: 08/15/16 17:00 NATALIE PORRAS Discharge Date: 08/29/16 - Discharge Diagnosis (1) Acute asthma exacerbation Is this a current diagnosis for this admission?: Yes (2) Pneumonia Is this a current diagnosis for this admission?: Yes (3) Diabetes mellitus type 2 in obese Is this a current diagnosis for this admission?: Yes (4) Hypertension Is this a current diagnosis for this admission?: Yes (5) Leg swelling Is this a current diagnosis for this admission?: Yes (6) Osteoarthritis Is this a current diagnosis for this admission?: Yes (7) Vitamin D deficiency Is this a current diagnosis for this admission?: Yes (8) DVT prophylaxis Is this a current diagnosis for this admission?: Yes - Additional Information Resuscitation Status: Full Code Home Medications: Acetaminophen with Codeine [Tylenol #3 Tablet] 1 tab PO Q12HP PRN 08/15/16 Albuterol Sulfate [Ventolin Hfa] 2 puff IH Q4HP PRN 08/15/16 Budesonide [Pulmicort Neb 0.5 mg/2 ml Ampul] 2 ml IH QPM 08/15/16 Budesonide/Formoterol Fumarate [Symbicort HFA 160-4.5 mcg Inhaler 6 gm] 2 puff IH Q12 08/15/16 Cholecalciferol (Vitamin D3) [Vitamin D3 2000 unit Tablet] 2,000 unit PO QPM 09/24 Cyclobenzaprine HCl [Flexeril 10 mg Tablet] 10 mg PO QHS 08/15/16 Furosemide [Lasix 20 mg Tablet] 20 mg PO QPM 08/15/16 Ibuprofen [Motrin 800 mg Tablet] 800 mg PO Q8HP PRN 08/15/16 Ipratropium/Albuterol Sulfate [Duoneb 3 ml Ampul] 3 ml NEB RTQ6HP PRN 08/15/16 Losartan/Hydrochlorothiazide [Hyzaar 100-25 Tablet] 1 tab PO QPM 08/15/16 Metformin HCl [Glucophage] 1,000 mg PO BID 08/15/16 Montelukast Sodium [Singulair 10 mg Tablet] 10 mg PO QPM 08/15/16 Tiotropium Br/Olodaterol HCl [Stiolto Respimat Inhal [place]] 2 puff IH QPM Azithromycin 500 mg PO DAILY #7 tablet 08/29/16 Prednisone [Deltasone 20 mg Tablet] 20 mg PO DAILY #7 08/29/16 History of Present Illness History of Present Illness: NOEMI ALAMO is a 55 year old female with hx of severe persistent asthma/ DM2/HTN/Tuan. 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 She satrted having cough- productive of brownish sputum, severe dyspne and wheezes. She went to ER in [place] 3 days ago and was discharged on prednisone 60 mg qd. She started having worsening of her symptoms on arrival to [place], hence she came to ER for evaluation and mgt. Hospital Course Hospital Course: 55 year old woman who was admitted at [facility] about 2 weeks ago for severe,a cute asthma exacerbation/left lobar pneumonia- community acquired. She was on IV steroids, Levaquin and we got pulmonology consult with Dr Liao. We eventually switched her to oral steroids after a prolonged period due to persistence of symptoms. She is stable and symptom free and will be discharged home to follow up with her PCP within 1 week. Physical Exam Vital Signs: Temp Pulse Resp BP Pulse Ox 98.4 F 98 16 113/53 L 99 08/29/16 11:28 08/29/16 11:28 08/29/16 11:28 08/29/16 11:28 08/29/16 11:28 Intake & Output 08/28/16 08/29/16 08/30/16 06:59 06:59 06:59 Intake Total 1615 1610 Output Total 2500 Balance -885 1610 Weight 134.4 kg 133.9 kg General appearance: PRESENT: no acute distress, cooperative, morbidly obese Head exam: PRESENT: atraumatic, normocephalic Eye exam: PRESENT: EOMI, PERRLA Ear exam: PRESENT: normal external ear exam, TM's normal bilaterally Mouth exam: PRESENT: moist, neck supple, tongue midline Respiratory exam: PRESENT: clear to auscultation tuan, symmetrical Cardiovascular exam: PRESENT: +S1, +S2 Pulses: PRESENT: +2 pedal pulses bilateral GI/Abdominal exam: PRESENT: normal bowel sounds, soft Rectal exam: PRESENT: deferred Extremities exam: PRESENT: full ROM Musculoskeletal exam: PRESENT: full ROM Neurological exam: PRESENT: alert, awake, oriented to person, oriented to place , oriented to time, CN II-XII grossly intact Psychiatric exam: PRESENT: normal mood Results Laboratory Results: 08/29/16 04:23 08/29/16 04:23 08/29/16 08/29/16 04:23 04:23 WBC 14.2 H RBC 4.87 Hgb 10.4 L Hct 33.0 L MCV 68 L MCH 21.4 L MCHC 31.5 L RDW 15.7 H Plt Count 213 Seg Neutrophils % 64.7 Lymphocytes % 29.8 Monocytes % 5.1 Eosinophils % 0.1 Basophils % 0.3 Absolute Neutrophils 9.2 H Absolute Lymphocytes 4.2 Absolute Monocytes 0.7 Absolute Eosinophils 0.0 Absolute Basophils 0.0 Sodium 132.8 L Potassium 4.5 Chloride 95 L Carbon Dioxide 27 Anion Gap 11 BUN 30 H Creatinine 0.82 Est GFR ( Amer) > 60 Est GFR (Non-Af Amer) > 60 Glucose 276 H Calcium 9.0 08/25/16 04:04 NT-Pro-B Natriuret Pep 43 Impressions: Chest X-Ray 08/22/16 00:00 IMPRESSION: NO SIGNIFICANT RADIOGRAPHIC FINDING IN THE CHEST.
[2016-08-29 13:05] VITALS: BP 123/65
--- NOTE | 2016-08-29 17:05 | PDOC PROGRESS REPORT ---
Subjective Progress Note for:: 08/28/16 Subjective:: I am okay Physical Exam Vital Signs: Temp Pulse Resp BP Pulse Ox 98.2 F 84 16 96/61 L 96 08/28/16 07:46 08/28/16 08:57 08/28/16 08:57 08/28/16 07:46 08/28/16 08:57 Intake & Output 08/27/16 08/28/16 08/29/16 06:59 06:59 06:59 Intake Total 1105 1615 Output Total 2300 2500 Balance -1195 -885 Weight 132.4 kg 134.4 kg General appearance: PRESENT: no acute distress, cooperative, disheveled, morbidly obese, well-developed Head exam: PRESENT: atraumatic, normocephalic Eye exam: PRESENT: conjunctiva pale, EOMI Mouth exam: PRESENT: moist, neck supple, tongue midline Neck exam: ABSENT: carotid bruit, JVD, lymphadenopathy, thyromegaly Respiratory exam: PRESENT: decreased breath sounds, prolonged expiratory phas, rhonchi, wheezes Cardiovascular exam: PRESENT: RRR, +S1, +S2 Pulses: PRESENT: normal radial pulses GI/Abdominal exam: PRESENT: normal bowel sounds, soft. ABSENT: distended, guarding, mass, organolmegaly, rebound, tenderness Rectal exam: PRESENT: deferred Musculoskeletal exam: PRESENT: normal inspection Neurological exam: PRESENT: alert, awake Psychiatric exam: PRESENT: normal mood Skin exam: PRESENT: dry, warm Results Laboratory Results: 08/28/16 03:53 08/28/16 03:53 08/28/16 08/28/16 03:53 03:53 WBC 14.6 H RBC 4.95 Hgb 10.6 L Hct 33.6 L MCV 68 L MCH 21.4 L MCHC 31.6 L RDW 15.5 H Plt Count 220 Seg Neutrophils % 69.7 Lymphocytes % 24.7 Monocytes % 5.0 Eosinophils % 0.3 Basophils % 0.3 Absolute Neutrophils 10.2 H Absolute Lymphocytes 3.6 Absolute Monocytes 0.7 Absolute Eosinophils 0.0 Absolute Basophils 0.0 Sodium 134.8 L Potassium 4.3 Chloride 96 L Carbon Dioxide 29 Anion Gap 10 BUN 33 H Creatinine 0.79 Est GFR ( Amer) > 60 Est GFR (Non-Af Amer) > 60 Glucose 197 H Calcium 8.6 08/25/16 04:04 NT-Pro-B Natriuret Pep 43 Impressions: Chest X-Ray 08/22/16 00:00 IMPRESSION: NO SIGNIFICANT RADIOGRAPHIC FINDING IN THE CHEST. Assessment & Plan - Diagnosis (1) Acute asthma exacerbation Qualifiers: Asthma severity: severe persistent Qualified Code(s): J45.51 - Severe persistent asthma with (acute) exacerbation Is this a current diagnosis for this admission?: YesPlan: close to baseline (2) Acute hypoxemic respiratory failure Is this a current diagnosis for this admission?: YesPlan: Improving (3) Pneumonia Qualifiers: Pneumonia type: due to unspecified organism Laterality: left Lung location: lower lobe of lung Qualified Code(s): J18.1 - Lobar pneumonia, unspecified organism Is this a current diagnosis for this admission?: Yes
--- NOTE | 2016-08-29 17:07 | PDOC PROGRESS REPORT ---
Subjective Progress Note for:: 08/29/16 Subjective:: i am going home today Physical Exam Vital Signs: Temp Pulse Resp BP Pulse Ox 98.4 F 98 16 123/65 99 08/29/16 13:03 08/29/16 13:03 08/29/16 13:03 08/29/16 13:03 08/29/16 13:03 Intake & Output 08/28/16 08/29/16 08/30/16 06:59 06:59 06:59 Intake Total 1615 1610 Output Total 2500 Balance -885 1610 Weight 134.4 kg 133.9 kg General appearance: PRESENT: no acute distress, cooperative, disheveled, morbidly obese, well-developed Head exam: PRESENT: atraumatic, normocephalic Eye exam: PRESENT: conjunctiva pale, EOMI Mouth exam: PRESENT: moist, neck supple Neck exam: ABSENT: carotid bruit, JVD, lymphadenopathy, thyromegaly Respiratory exam: PRESENT: decreased breath sounds, prolonged expiratory phas, wheezes Cardiovascular exam: PRESENT: RRR, +S1, +S2 Pulses: PRESENT: normal radial pulses GI/Abdominal exam: PRESENT: normal bowel sounds, soft. ABSENT: distended, guarding, mass, organolmegaly, rebound, tenderness Rectal exam: PRESENT: deferred Musculoskeletal exam: PRESENT: normal inspection Neurological exam: PRESENT: alert, awake Psychiatric exam: PRESENT: normal mood Skin exam: PRESENT: dry, warm Results Laboratory Results: 08/29/16 04:23 08/29/16 04:23 08/29/16 08/29/16 04:23 04:23 WBC 14.2 H RBC 4.87 Hgb 10.4 L Hct 33.0 L MCV 68 L MCH 21.4 L MCHC 31.5 L RDW 15.7 H Plt Count 213 Seg Neutrophils % 64.7 Lymphocytes % 29.8 Monocytes % 5.1 Eosinophils % 0.1 Basophils % 0.3 Absolute Neutrophils 9.2 H Absolute Lymphocytes 4.2 Absolute Monocytes 0.7 Absolute Eosinophils 0.0 Absolute Basophils 0.0 Sodium 132.8 L Potassium 4.5 Chloride 95 L Carbon Dioxide 27 Anion Gap 11 BUN 30 H Creatinine 0.82 Est GFR ( Amer) > 60 Est GFR (Non-Af Amer) > 60 Glucose 276 H Calcium 9.0 08/25/16 04:04 NT-Pro-B Natriuret Pep 43 Impressions: Chest X-Ray 08/22/16 00:00 IMPRESSION: NO SIGNIFICANT RADIOGRAPHIC FINDING IN THE CHEST. Assessment & Plan - Diagnosis (1) Acute asthma exacerbation Qualifiers: Asthma severity: severe persistent Qualified Code(s): J45.51 - Severe persistent asthma with (acute) exacerbation Is this a current diagnosis for this admission?: Yes (2) Acute hypoxemic respiratory failure Is this a current diagnosis for this admission?: No (3) Pneumonia Qualifiers: Pneumonia type: due to unspecified organism Laterality: left Lung location: lower lobe of lung Qualified Code(s): J18.1 - Lobar pneumonia, unspecified organism Is this a current diagnosis for this admission?: No
== END 2016-08-29 14:00 | disposition home or self-care (01) | DRG 202 ==
LOC: ER 11:16 → EH 15:48 → UNDOADMIN 15:48 → 3N 17:00 → EH 17:13
PROVIDERS: ADMIT Internal Medicine; ATTEND Internal Medicine
DX: J45.51 Severe persistent asthma with (acute) exacerbation (principal); J18.1 Lobar pneumonia, unspecified organism; Z68.43 Body mass index [BMI] 50.0-59.9, adult; E11.9 Type 2 diabetes mellitus without complications; I10 Essential (primary) hypertension; M19.90 Unspecified osteoarthritis, unspecified site; E55.9 Vitamin D deficiency, unspecified; E66.01 Morbid (severe) obesity due to excess calories; Z79.899 Other long term (current) drug therapy; Z88.8 Allergy status to other drugs, medicaments and biological substances
CPT/HCPCS: 36415; 36600; 71010; 71020; 80048; 80053; 80061; 81001; 82785; 82803; 82962; 83036; 83880; 84443; 85025; 86003; 87040; 93005; 93010; 94640; 96365; 96375; 99291; J1650; J1815; J1956; J2920; J2930; J3475; J3490; J7512; J7620

== ENCOUNTER → 2016-10-25 | Outpatient (CLI) | payer OTHER ==
--- NOTE | 2016-10-26 14:18 | RADIOLOGY REPORT (SQ) ---
EXAM DESCRIPTION: LUMBAR SPINE COMPLETE COMPLETED DATE/TIME: 10/25/2016 3:14 pm REASON FOR STUDY: LUMBAGO WITH SCIATICA RIGHT SIDE/RIGHT HIP PAIN M25.551 PAIN IN RIGHT HIP M54.41 LUMBAGO WITH SCIATICA, RIGHT SIDE COMPARISON: None. NUMBER OF VIEWS: Five views including obliques. TECHNIQUE: AP, lateral, oblique, and sacral radiographic images acquired of the lumbar spine. LIMITATIONS: None. FINDINGS: MINERALIZATION: Normal. SEGMENTATION: Normal. No transitional anatomy. ALIGNMENT: Normal. VERTEBRAE: Maintained height. No fracture or worrisome bone lesion. DISCS: Preserved height. No significant osteophytes or end plate irregularity. POSTERIOR ELEMENTS: Pedicles and facets are intact. No pars defect or posterior arch defects. HARDWARE: None in the spine. PARASPINAL SOFT TISSUES: Normal. PELVIS: Mild right SI joint sclerosis OTHER: No other significant finding. IMPRESSION: Mild right SI joint sclerosis. Otherwise unremarkable lumbar spine films TECHNICAL DOCUMENTATION: JOB ID: [id number] [employer]- All Rights Reserved
--- NOTE | 2016-10-26 14:19 | RADIOLOGY REPORT (SQ) ---
EXAM DESCRIPTION: HIP RIGHT AP/LATERAL COMPLETED DATE/TIME: 10/25/2016 3:14 pm REASON FOR STUDY: LUMBAGO WITH SCIATICA RIGHT SIDE/RIGHT HIP PAIN M25.551 PAIN IN RIGHT HIP M54.41 LUMBAGO WITH SCIATICA, RIGHT SIDE COMPARISON: None. NUMBER OF VIEWS: Two views. TECHNIQUE: AP pelvis and additional frog-leg view of the right hip. LIMITATIONS: None. FINDINGS: MINERALIZATION: Normal. RIGHT HIP: No fracture or dislocation. No worrisome bone lesions. No significant right hip joint sp carlos enrique narrowing or bony spurring LEFT HIP: No fracture or dislocation. No worrisome bone lesions. Mild left hip joint space narrowin g and bony spurring PUBIS AND ISCHIUM: No fracture. PELVIS: No fracture. Sclerosis right SI joint. SACRUM: No fracture or dislocation. No worrisome bone lesions. LOWER LUMBAR SPINE: No fracture or dislocation. No worrisome bone lesions. No significant disc disea se. SOFT TISSUES: No findings. OTHER: No other significant finding. IMPRESSION: No acute fracture or malalignment. No significant right hip joint space narrowing. Scl erosis right SI joint. TECHNICAL DOCUMENTATION: JOB ID: [id number] [employer]- All Rights Reserved
== END ==
LOC: OD 14:55
PROVIDERS: ATTEND Internal Medicine
DX: M25.551 Pain in right hip (principal); M54.41 Lumbago with sciatica, right side
CPT/HCPCS: 72110

== ENCOUNTER 2017-01-07 15:59 | Emergency (ER) | payer OTHER ==
[2017-01-07] MEDS ORDERED: IPRATROPIUM/ALBUTEROL 0.5-2.5 MG/3 ML AMPUL NEB ONE (16:25)
[2017-01-07] MEDS ORDERED: METHYLPREDNISOLONE INJ 125 MG/2 ML SDV IV ONE (16:25)
--- NOTE | 2017-01-07 16:26 | ER Document Report ---
ED Medical Screen (RME) - General Chief Complaint: Breathing Difficulty Stated Complaint: SHORTNESS OF BREATH Time Seen by Provider: 01/07/17 16:24 Mode of Arrival: Ambulatory Information source: Patient Notes: pt with hx asthma, reports inc mian jaimes TRAVEL OUTSIDE OF THE [place] IN LAST 30 DAYS: Yes COUNTRY TRAVELED TO/FROM: [place] - Related Data Allergies/Adverse Reactions: lisinopril Allergy (Verified 08/15/16 12:25) oxycodone [From Percocet] Allergy (Verified 08/15/16 12:25) Past Medical History - Social History Family history: DM, Hypertension - Past Medical History Cardiac Medical History: Reports: Hx Hypertension Pulmonary Medical History: Reports: Hx Asthma Neurological Medical History: Reports: Hx Migraine Endocrine Medical History: Reports: Hx Diabetes Mellitus Type 2 Renal/ Medical History: Denies: Hx Peritoneal Dialysis Past Surgical History: Reports: Hx Section - Immunizations Immunizations up to date: Yes Hx Diphtheria, Pertussis, Tetanus Vaccination: Yes Physical Exam - Vital signs Vitals: Temp Pulse Resp BP Pulse Ox 98.5 F 105 H 24 H 139/68 H 90 L 01/07/17 16:16 01/07/17 16:16 01/07/17 16:16 01/07/17 16:16 01/07/17 16:16 Course - Vital Signs Vital signs: Temp Pulse Resp BP Pulse Ox 98.5 F 105 H 24 H 139/68 H 90 L 01/07/17 16:16 01/07/17 16:16 01/07/17 16:16 01/07/17 16:16 01/07/17 16:16
[2017-01-07] MEDS ORDERED: MAGNESIUM SULFATE INJ 8 MEQ/2 ML IV ONE (16:47)
[2017-01-07] MEDS ORDERED: PREDNISONE 20 MG TABLET PO ONE (16:47)
--- NOTE | 2017-01-07 16:49 | ER Document Report ---
ED Respiratory Problem - General Mode of Arrival: Ambulatory Information source: Patient TRAVEL OUTSIDE OF THE [place] IN LAST 30 DAYS: Yes COUNTRY TRAVELED TO/FROM: [place] - HPI Patient complains to provider of: Short of breath Onset: Other - 3 days ago Sputum amount: Scant <MAYKEL OVERTON - Last Filed: 01/07/17 17:06> <SAMANTHA MORENO - Last Filed: 01/07/17 18:33> - General Chief Complaint: Breathing Difficulty Stated Complaint: SHORTNESS OF BREATH Time Seen by Provider: 01/07/17 16:24 Notes: Patient is a 56 year old female with a significant history of asthma presenting to the emergency department with difficulty breathing onset 3 days ago. Secondary to her difficulty breathing patient states she has some coughing with little sputum and a slight fever. (MAYKEL OVERTON) - Related Data Allergies/Adverse Reactions: lisinopril Allergy (Verified 08/15/16 12:25) oxycodone [From Percocet] Allergy (Verified 08/15/16 12:25) Past Medical History - General Information source: Patient - Social History Smoking Status: Never Smoker Cigarette use (# per day): No Chew tobacco use (# tins/day): No Smoking Education Provided: No Frequency of alcohol use: None Drug Abuse: None Family History: DM, Hypertension Patient has suicidal ideation: No Patient has homicidal ideation: No - Past Medical History Cardiac Medical History: Reports: Hx Hypertension Pulmonary Medical History: Reports: Hx Asthma Neurological Medical History: Reports: Hx Migraine Endocrine Medical History: Reports: Hx Diabetes Mellitus Type 2 Past Surgical History: Reports: Hx Section - Immunizations Immunizations up to date: Yes Hx Diphtheria, Pertussis, Tetanus Vaccination: Yes <MAYKEL OVERTON - Last Filed: 01/07/17 17:06> Review of Systems - Review of Systems Constitutional: See HPI, Fever - slight fever EENT: No symptoms reported Cardiovascular: No symptoms reported Respiratory: See HPI, Cough, Short of breath, Other Gastrointestinal: No symptoms reported Genitourinary: No symptoms reported Female Genitourinary: No symptoms reported Musculoskeletal: No symptoms reported Skin: No symptoms reported Hematologic/Lymphatic: No symptoms reported Neurological/Psychological: No symptoms reported -: Yes All other systems reviewed and negative <MAYKEL OVERTON - Last Filed: 01/07/17 17:06> Physical Exam - Vital signs Interpretation: Normal - General General appearance: Appears well, Alert In distress: None - HEENT Head: Normocephalic, Atraumatic Conjunctiva: Normal Pupils: PERRL - Respiratory Respiratory status: Respiratory distress, Other - dyspnea Breath sounds: Rhonchi, Wheezing - Cardiovascular Rhythm: Regular Heart sounds: Normal auscultation - Abdominal Inspection: Morbidly Obese Distension: No distension Organomegaly: No organomegaly - Back Back: Normal - Extremities General upper extremity: Normal inspection, Normal ROM, Normal strength General lower extremity: Normal inspection, Normal ROM, Normal strength - Neurological Neuro grossly intact: Yes Cognition: Normal Orientation: AAOx4 Natacha Coma Scale Eye Opening: Spontaneous [place] Coma Scale Verbal: Oriented [place] Coma Scale Motor: Obeys Commands [place] Coma Scale Total: 15 Speech: Normal - Psychological Associated symptoms: Normal affect, Normal mood - Skin Skin Temperature: Warm Skin Moisture: Dry Skin Color: Normal <MAYKEL OVERTON - Last Filed: 01/07/17 17:06> <SAMANTHA MORENO - Last Filed: 01/07/17 18:33> - Vital signs Vitals: Temp Pulse Resp BP Pulse Ox 98.5 F 105 H 24 H 139/68 H 90 L 01/07/17 16:16 01/07/17 16:16 01/07/17 16:16 01/07/17 16:16 01/07/17 16:16 Course <MAYEKL OVERTON - Last Filed: 01/07/17 17:06> - Laboratory Result Diagrams: 01/07/17 17:00 01/07/17 17:00 - Diagnostic Test Radiology reviewed: Image reviewed, Reports reviewed - Chest x-ray does not show any acute process. <SAMANTHA MORENO - Last Filed: 01/07/17 18:33> - Re-evaluation Re-evalutation: 01/07/17 18:33 After the mag sulfate and breathing treatments and steroids, the patient feels much better. When I have her take a deep breath and cough now I do not hear to wheezes, only the rhonchi consistent with the bronchitis she has developed. ( SAMANTHA MORENO) - Vital Signs Vital signs: Temp Pulse Resp BP Pulse Ox 98.5 F 105 H 25 H 139/68 H 90 L 01/07/17 16:16 01/07/17 16:16 01/07/17 17:00 01/07/17 16:16 01/07/17 16:16 - Laboratory Laboratory results interpreted by me: 01/07/17 01/07/17 17:00 17:00 Hgb 11.2 L Hct 34.4 L MCV 67 L MCH 21.7 L RDW 16.4 H Sodium 147.7 H Potassium 3.4 L Carbon Dioxide 35 H Discharge <MAYKEL OVERTON - Last Filed: 01/07/17 17:06> <SAMANTHA MORENO - Last Filed: 01/07/17 18:33> - Discharge Clinical Impression: Acute bronchitis with asthma with acute exacerbation Condition: Stable Disposition: HOME, SELF-CARE Additional Instructions: Bronchitis with Bronchospasm (Wheezing): You have bronchitis with bronchospasm (wheezing). Sometimes people develop wheezing with a chest cold. This occurs either because of an underlying tendency toward asthma or because the virus itself irritates the bronchial tubes. This irritation causes cough, shortness of breath, and wheezing. Emergency treatment of bronchospasm may include adrenaline shots or bronchodilator aerosol. You may feel lightheaded and have a rapid pulse for an hour or two. Rest and get plenty of fluids. At home, we'll treat you with a bronchodilator inhaler. Corticosteroids may be required for some patients. Until you recover, avoid chemical fumes, dusts, pollens, and exercising in very cold or dry air. If you smoke, stop now! Most cases of bronchitis get better without antibiotics. We prescribe antibiotics when we believe bacteria are damaging your airways, or if there's high risk the bronchitis will worsen into pneumonia. Increase your fluid intake. A cool mist humidifier may make your lungs more comfortable. An expectorant (cough medicine that loosens phlegm) can help. Repeated episodes of bronchitis and bronchospasm may result in lung damage -- for example, chronic bronchitis, recurrent pneumonias, or emphysema. If you develop a fever, increased wheezing, chest pain, or severe shortness of breath, you should contact the doctor immediately. //////////////////////////////////////////////////////////////////////////////// //////////////////////////////////////////////////////////////////////////////// ///////////////// Continue your nebulizers and inhalers. Start the prednisone and Zithromax tomorrow. Drink plenty of fluids. Increase potassium in your diet this week. Get plenty of rest. Follow-up with Dr. Porras if not improving. RETURN TO THE EMERGENCY ROOM IF ANY NEW OR WORSENING SYMPTOMS. Prescriptions: Azithromycin [Zithromax 250 mg Tablet] 250 mg PO DAILY #4 tablet Prednisone [Deltasone 10 mg Tablet] 10 mg PO ASDIR PRN #21 tablet PRN Reason: Referrals: NATALIE PORRAS MD [Primary Care Provider] - Follow up as needed Scribe Attestation: 01/07/17 18:26 I personally performed the services described in the documentation, reviewed and edited the documentation which was dictated to the scribe in my presence, and it accurately records my words and actions. (SAMNATHA MORENO) Scribe Documentation - Scribe Written by Sugar:: Sugar Bryant 01/07/2017 1700 acting as scribe for :: Renee <MAYKEL OVERTON - Last Filed: 01/07/17 17:06>
[2017-01-07 17:17] LABS: ABSOLUTE BASOPHILS # (AUTO) 0.1 10^3/uL (0.0-0.2); ABSOLUTE EOSINOPHILS # (AUTO) 0.1 10^3/uL (0.0-0.6); ABSOLUTE LYMPHOCYTES (AUTO) 1.1 10^3/uL (0.5-4.7); ABSOLUTE MONOCYTES (AUTO) 0.4 10^3/uL (0.1-1.4); ABSOLUTE NEUT (AUTO) 5.5 10^3/uL (1.7-8.2); BASOPHILS % (AUTO) 0.9 % (0-2); EOSINOPHILS % (AUTO) 1.3 % (0-6); HEMATOCRIT 34.4 % (36.0-47.0); HEMOGLOBIN 11.2 g/dL (12.0-15.5); HGB HCT DIFFERENCE -0.8; LYMPHOCYTES % (AUTO) 15.9 % (13-45); MEAN CORPUSCULAR HEMOGLOBIN 21.7 pg (27.0-33.4); MEAN CORPUSCULAR HGB CONC 32.6 g/dL (32.0-36.0); MEAN CORPUSCULAR VOLUME 67 fl (80-97); MONOCYTES % (AUTO) 6.1 % (3-13); RED BLOOD COUNT 5.17 10^6/uL (3.72-5.28); RED CELL DISTRIBUTION WIDTH 16.4 % (11.5-14.0); SEGMENTED NEUTROPHILS % (AUTO) 75.8 % (42-78); WHITE BLOOD COUNT 7.3 10^3/uL (4.0-10.5)
--- NOTE | 2017-01-07 17:19 | RADIOLOGY REPORT (SQ) ---
EXAM DESCRIPTION: CHEST SINGLE VIEW COMPLETED DATE/TIME: 01/07/2017 4:57 pm REASON FOR STUDY: sob COMPARISON: 08/22/2016 EXAM PARAMETERS: NUMBER OF VIEWS: One view. TECHNIQUE: Single frontal radiographic view of the chest acquired. RADIATION DOSE: NA LIMITATIONS: None. FINDINGS: LUNGS AND PLEURA: No opacities, masses or pneumothorax. No pleural effusion. MEDIASTINUM AND HILAR STRUCTURES: No masses. Contour normal. HEART AND VASCULAR STRUCTURES: Heart normal in size. Normal vasculature. BONES: No acute findings. HARDWARE: None in the chest. OTHER: No other significant finding. IMPRESSION: NO ACUTE RADIOGRAPHIC FINDING IN THE CHEST. TECHNICAL DOCUMENTATION: JOB ID: [id number]
[2017-01-07 17:38] LABS: ALANINE AMINOTRANSFERASE 35 U/L (9-52); ALBUMIN 4.1 g/dL (3.5-5.0); ALKALINE PHOSPHATASE 70 U/L (38-126); ANION GAP 13 (5-19); ASPARTATE AMINO TRANSFERASE 26 U/L (14-36); BILIRUBIN,DIRECT 0.3 mg/dL (0.0-0.4); BILIRUBIN,TOTAL 0.3 mg/dL (0.2-1.3); BLOOD UREA NITROGEN 13 mg/dL (7-20); CALCIUM 9.6 mg/dL (8.4-10.2); CARBON DIOXIDE 35 mmol/L (22-30); CHLORIDE 100 mmol/L (98-107); CREATININE RESULT 0.72 mg/dL (0.52-1.25); GLUCOSE 96 mg/dL (75-110); POTASSIUM 3.4 mmol/L (3.6-5.0); SODIUM 147.7 mmol/L (137-145); TOTAL PROTEIN 7.1 g/dL (6.3-8.2)
[2017-01-07] MEDS ORDERED: ALBUTEROL SULFATE 0.083% NEB 2.5 MG/3 ML AMPUL NEB ONE (17:41)
[2017-01-07] MEDS ORDERED: POTASSIUM CHLORIDE 10 MEQ TABLET.SA PO ONE (17:42)
[2017-01-07] MEDS ORDERED: AZITHROMYCIN 250 MG TABLET PO ONE (18:26)
[2017-01-07 19:19] VITALS: BP 129/76
== END 2017-01-07 19:23 | disposition home or self-care (01) ==
LOC: ER 15:59
DX: J20.9 Acute bronchitis, unspecified (principal); J45.901 Unspecified asthma with (acute) exacerbation; R06.02 Shortness of breath; R05 Cough; R50.9 Fever, unspecified; I10 Essential (primary) hypertension; E11.9 Type 2 diabetes mellitus without complications; Z88.5 Allergy status to narcotic agent; Z88.8 Allergy status to other drugs, medicaments and biological substances
CPT/HCPCS: 94640 ×2; 99285; 96374; 96375; 36415; 85025; 80053; 71010; J3475; J2930; J7512; J7620

== ENCOUNTER → 2017-04-03 | Outpatient (CLI) | payer OTHER ==
--- NOTE | 2017-04-03 14:31 | RADIOLOGY REPORT (SQ) ---
EXAM DESCRIPTION: KNEE RIGHT 4 VIEWS COMPLETED DATE/TIME: 04/03/2017 2:15 pm REASON FOR STUDY: BILATERAL PRIMARY OSTEOARTHRITIS OF KNEE M17.0 BILATERAL PRIMARY OSTEOARTHRITIS O F KNEE COMPARISON: Right knee films 06/19/2016 NUMBER OF VIEWS: Four views. TECHNIQUE: AP, lateral, and both oblique radiographic images acquired of the right knee. LIMITATIONS: None. FINDINGS: MINERALIZATION: Normal. BONES: Since the prior images, patient has developed an osteochondral defect in the weight-bearing majano rface right knee medial femoral condyle 16 mm in diameter. No acute fracture or malalignment. JOINT: Moderate suprapatellar knee joint effusion SOFT TISSUES: No soft tissue swelling. No radio-opaque foreign body. OTHER: No other significant finding. IMPRESSION: Moderate suprapatellar knee joint effusion. Medial femoral condyle osteochondral defect along the weight-bearing surface, 16 mm in diameter TECHNICAL DOCUMENTATION: JOB ID: [id number] [employer]- All Rights Reserved
== END ==
LOC: OD 13:56
PROVIDERS: ATTEND Internal Medicine
DX: M17.0 Bilateral primary osteoarthritis of knee (principal)

== ENCOUNTER → 2017-04-04 | Outpatient (CLI) | payer OTHER ==
[2017-04-04 09:39] LABS: ABSOLUTE EOSINOPHILS # (AUTO) 0.1 10^3/uL (0.0-0.6); ABSOLUTE LYMPHOCYTES (AUTO) 3.5 10^3/uL (0.5-4.7); ABSOLUTE MONOCYTES (AUTO) 0.5 10^3/uL (0.1-1.4); ABSOLUTE NEUT (AUTO) 3.2 10^3/uL (1.7-8.2); BASOPHILS % (AUTO) 0.3 % (0-2); EOSINOPHILS % (AUTO) 1.4 % (0-6); HEMATOCRIT 34.3 % (36.0-47.0); LYMPHOCYTES % (AUTO) 48.1 % (13-45); MEAN CORPUSCULAR HGB CONC 32.2 g/dL (32.0-36.0); MEAN CORPUSCULAR VOLUME 65 fl (80-97); MONOCYTES % (AUTO) 6.8 % (3-13); PLATELET COUNT 278 10^3/uL (150-450); RED BLOOD COUNT 5.26 10^6/uL (3.72-5.28); RED CELL DISTRIBUTION WIDTH 18.5 % (11.5-14.0); SEGMENTED NEUTROPHILS % (AUTO) 43.4 % (42-78); TOTAL CELLS COUNTED % (AUTO) 100 %; WHITE BLOOD COUNT 7.3 10^3/uL (4.0-10.5)
[2017-04-04 09:59] LABS: ALANINE AMINOTRANSFERASE 26 U/L (9-52); ALBUMIN 4.1 g/dL (3.5-5.0); ALKALINE PHOSPHATASE 63 U/L (38-126); ANION GAP 11 (5-19); ASPARTATE AMINO TRANSFERASE 18 U/L (14-36); BILIRUBIN,DIRECT 0.2 mg/dL (0.0-0.4); BILIRUBIN,TOTAL 0.2 mg/dL (0.2-1.3); BLOOD UREA NITROGEN 18 mg/dL (7-20); CALCIUM 9.6 mg/dL (8.4-10.2); CARBON DIOXIDE 30 mmol/L (22-30); CHLORIDE 103 mmol/L (98-107); CHOLESTEROL 153.58 mg/dL (0-200); GLUCOSE 109 mg/dL (75-110); POTASSIUM 3.7 mmol/L (3.6-5.0); SODIUM 143.8 mmol/L (137-145); TOTAL PROTEIN 6.7 g/dL (6.3-8.2); TRIGLYCERIDES 141 mg/dL (<150)
[2017-04-04 10:10] LABS: DIRECT LDL 60 mg/dL (<100)
[2017-04-06 12:37] LABS: CREATININE URINE 76.6 mg/dL (Not Estab.)
[2017-04-07 08:43] LABS: MICROALBUMIN URINE <3.0 ug/mL (Not Estab.)
== END ==
LOC: OD 08:41
PROVIDERS: ATTEND Internal Medicine
DX: E11.9 Type 2 diabetes mellitus without complications (principal); E66.01 Morbid (severe) obesity due to excess calories; Z13.220 Encounter for screening for lipoid disorders; I10 Essential (primary) hypertension
CPT/HCPCS: 36415; 80053; 80061; 82043; 82570; 83036; 84443; 85025

== ENCOUNTER → 2017-04-17 | Outpatient (CLI) | payer OTHER ==
--- NOTE | 2017-04-17 18:38 | RADIOLOGY REPORT (SQ) ---
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 TECHNIQUE: Rightknee images acquired and stored on PACS. Multiplanar images include fat sensitive s equences as T1, water sensitive sequences as FST2 or STIR, cartilage sensitive sequences as FSPD, and gradient echo sequences. LIMITATIONS: None. FINDINGS: JOINT AND BURSAE: Joint effusion. Loose bodies. BONE CORTEX AND MARROW: Serpiginous decreased T1 and increased T2 signal involving most of the articu lar surface of both femoral condyles. ACL: Intact. No degeneration or ganglion cyst. PCL: Intact. MCL: Intact. No periligamentous edema or fluid. LCL: Intact. No periligamentous edema or fluid. MEDIAL MENISCUS: Medial migration. Increased signal posterior horn extending to the articular surfac e in the horizontal plane. LATERAL MENISCUS: Intact. MEDIAL COMPARTMENT: Thinning of the articular cartilage. Small osteophytes. LATERAL COMPARTMENT: Thinning of the articular cartilage. PATELLA: Thinning of the articular cartilage. Intact retinaculum. EXTENSOR MECHANISM: Intact. Quadriceps and patella tendons normal. SOFT TISSUES: Adjacent muscles and subcutaneous tissues normal. Normal flow void in popliteal artery and vein. OTHER: No other significant finding. IMPRESSION: 1. Avascular necrosis femoral condyles. 2. Joint effusion. Loose bodies. 3. Horizontal tear posterior horn medial meniscus. TECHNICAL DOCUMENTATION: JOB ID: [id number] [employer]- All Rights Reserved
== END ==
LOC: RAD 16:13
PROVIDERS: ATTEND Orthopaedic Surgery
DX: M93.269 Osteochondritis dissecans, unspecified knee (principal); M25.461 Effusion, right knee

== ENCOUNTER → 2017-11-19 | Outpatient (CLI) | payer MEDICARE, OTHER ==
--- NOTE | 2017-11-19 15:10 | WOMENS IMAGING REPORT ---
EXAM DESCRIPTION: BILAT SCREENING MAMMO W/CAD COMPLETED DATE/TIME: 11/19/2017 11:49 am REASON FOR STUDY: ROUTINE SCREENING MAMMOGRAM Z12.31 Z12.31 ENCNTR SCREEN MAMMOGRAM FOR MALIGNANT N EOPLASM OF EUGENIO COMPARISON: 07/08/2013 TECHNIQUE: Standard craniocaudal and mediolateral oblique views of each breast recorded using [facility] acquisition. LIMITATIONS: None. FINDINGS: No masses, calcifications or architectural distortion. No areas of suspicion. Read with the assistance of CAD. .[facility] - R2 [employer]ova Version 1.3 .[facility] Imaging - R2 C[employer] Version 1.3 .[facility] Imaging - R2 C[employer] Version 2.4 .[facility] - R2 C[employer] Version 2.4 .[facility] - R2 [employer] Version 9.2 IMPRESSION: NORMAL MAMMOGRAM. BIRADS 1. BREAST DENSITY: b. There are scattered areas of fibroglandular density. BIRAD: 1 NEGATIVE RECOMMENDATION: ROUTINE SCREENING Please continue yearly bilateral screening mammography/tomosynthesis in November 2018 COMMENT: The patient has been notified of the results by letter per SA requirements. Additional no tification policies are in place for contacting patient with suspicious or incomplete findings. Quality ID #[id number]: The [employer] recommends an annual screening mammogram for women aged 40 years or over. This facility utilizes a reminder system to ensure that all patients receive reminder letters, and/or direct phone calls for appointments. This includes reminders for routine scr eening mammograms, diagnostic mammograms, or other Breast Imaging Interventions when appropriate. Th is patient will be placed in the appropriate reminder system. The [employer] (ACR) has developed recommendations for screening MRI of the breast s in certain patient populations, to be used in conjunction with mammography. Breast MRI surveillanc e may be appropriate for women with more than 20% lifetime risk of developing breast cancer as deter mined by genetic testing, significant family history of the disease, or history of mantle radiation f or Hodgkins Disease. ACR Practice Guidelines 2008. TECHNICAL DOCUMENTATION: FINDING NUMBER: (1) ASSESSMENT: (1) JOB ID: [id number] [employer]- All Rights Reserved Reading location - IP/workstation name: [facility]-RR2
== END ==
LOC: WI 11:05
PROVIDERS: ATTEND Internal Medicine
DX: Z12.31 Encounter for screening mammogram for malignant neoplasm of breast (principal)
CPT/HCPCS: 77067

== ENCOUNTER → 2018-01-15 | Outpatient (CLI) | payer MEDICARE ==
--- NOTE | 2018-01-15 15:50 | RADIOLOGY REPORT (SQ) ---
EXAM DESCRIPTION: SHOULDER RIGHT 2 OR MORE VIEWS COMPLETED DATE/TIME: 01/15/2018 3:28 pm REASON FOR STUDY: COMPLETE ROTATR-CUFF TEAR/RUPTR OF R SHOULDER, NOT TRAUMA M75.121 COMPLETE ROTATR -CUFF TEAR/RUPTR OF R SHOULDER, NOT T COMPARISON: None. NUMBER OF VIEWS: Three views. TECHNIQUE: Internal rotation, external rotation, and Y view images acquired of the right shoulder. LIMITATIONS: None. FINDINGS: MINERALIZATION: Normal. BONES: No acute fracture or dislocation. No worrisome bone lesions. JOINTS: No dislocation. VISUALIZED LUNGS AND RIBS: No pneumothorax. No rib fracture. SOFT TISSUES: No radiopaque foreign body. OTHER: No other significant finding. IMPRESSION: NEGATIVE STUDY OF THE RIGHT SHOULDER. NO RADIOGRAPHIC EVIDENCE OF ACUTE INJURY. TECHNICAL DOCUMENTATION: JOB ID: [id number] [employer]- All Rights Reserved Reading location - IP/workstation name: [email or web address]
== END ==
LOC: OD 14:47
PROVIDERS: ATTEND Internal Medicine
DX: M75.121 Complete rotator cuff tear or rupture of right shoulder, not specified as traumatic (principal)

== ENCOUNTER 2018-01-29 | Emergency (ER) | payer MEDICARE ==
[2018-01-29] MEDS ORDERED: PREDNISONE 20 MG TABLET PO ONE (01:17)
[2018-01-29] MEDS ORDERED: IPRATROPIUM/ALBUTEROL 0.5-2.5 MG/3 ML AMPUL NEB ONE (01:17)
--- NOTE | 2018-01-29 01:37 | ER Document Report ---
ED General - General Chief Complaint: Shortness Of Breath Stated Complaint: TROUBLE BREATHING Time Seen by Provider: 01/29/18 01:10 Notes: Patient is a 57-year-old female who presents with complaint of asthma exacerbation. She has a history of asthma. She does not smoke. She was hospitalized a year and a half ago because of her asthma. She said that she has been having some intermittent wheezing now for a few weeks but has not been getting better and therefore came to the ER. She does have a nebulizer at home. She has not been on steroids. She is a diabetic. She has a blood sugars well controlled with metformin. No fevers. No vomiting. No other complaints at this time. TRAVEL OUTSIDE OF THE [place] IN LAST 30 DAYS: No - Related Data Allergies/Adverse Reactions: lisinopril Allergy (Verified 08/15/16 12:25) oxycodone [From Percocet] Allergy (Verified 08/15/16 12:25) Past Medical History - Social History Smoking Status: Never Smoker Frequency of alcohol use: None Drug Abuse: None Family History: DM, Hypertension Patient has suicidal ideation: No Patient has homicidal ideation: No - Past Medical History Cardiac Medical History: Reports: Hx Hypertension Pulmonary Medical History: Reports: Hx Asthma Neurological Medical History: Reports: Hx Migraine Endocrine Medical History: Reports: Hx Diabetes Mellitus Type 2 Renal/ Medical History: Denies: Hx Peritoneal Dialysis Past Surgical History: Reports: Hx Section - Immunizations Immunizations up to date: Yes Hx Diphtheria, Pertussis, Tetanus Vaccination: Yes Review of Systems - Review of Systems Notes: My Normal Review Basic REVIEW OF SYSTEMS: CONSTITUTIONAL : Denies fever, chills, or sweats. Denies recent illness. EENT: Denies eye, ear, throat, or mouth pain or symptoms. Denies nasal or sinus congestion. CARDIOVASCULAR: Denies chest pain. RESPIRATORY: Wheezing and coughing GASTROINTESTINAL: Denies abdominal pain. Denies nausea, vomiting, or diarrhea. SKIN: Denies rash or skin lesions. NEUROLOGICAL: Denies altered mental status or loss of consciousness. ALL OTHER SYSTEMS REVIEWED AND NEGATIVE. Physical Exam - Vital signs Vitals: Temp Pulse Resp BP Pulse Ox 98.3 F 97 18 127/72 H 96 01/29/18 00:07 01/29/18 00:07 01/29/18 00:07 01/29/18 00:07 01/29/18 00:07 - Notes Notes: General Appearance: Well nourished, alert, cooperative, no acute distress, no obvious discomfort. Appearing. Vitals: reviewed, See vital signs table. Eyes: PERRL, EOMI, Conjuctiva clear Mouth: No decreasd moisture Throat: No tonsillar inflammation, No airway obstruction, No lymphadenopathy Lungs: Air exchange with mild prolonged expiratory wheeze throughout. Speaks in full sentences. No distress. Heart: Normal rate, Regular rythm, No murmur, no rub Skin: warm, dry, appropriate color, no rash Neuro: speech clear, oriented x 3, normal affect, responds appropriately to questions. Course - Re-evaluation Re-evalutation: 01/29/18 02:15 Patient lung auscultation is improved after the breathing treatment. She feels much better as well. She looks well. She is in no distress. She is able speak in full sentences. We will place her on prednisone. She is a diabetic. Her blood sugars are actually very well controlled with her metformin. She also takes Lantus 30 units at night. Informed her to keep a close eye on her blood sugar. If her blood sugar starts to approach 250 then she is to increase her Lantus to 40 units at night. Encouraged her to return to ER immediately if she has difficulty breathing, wheezing not responding to inhaler, or if her blood sugar continues to increase. Patient agrees with plan and will be discharged home. Dictation of this chart was performed using voice recognition software; therefore, there may be some unintended grammatical errors. - Vital Signs Vital signs: Temp Pulse Resp BP Pulse Ox 98.3 F 97 18 127/72 H 96 01/29/18 00:07 01/29/18 00:07 01/29/18 00:07 01/29/18 00:07 01/29/18 00:07 - Laboratory Laboratory results interpreted by me: 01/29/18 01:25 POC Glucose 132 H Discharge - Discharge Clinical Impression: Asthma exacerbation Qualifiers: Asthma severity: mild Asthma persistence: intermittent Qualified Code(s): J45.21 - Mild intermittent asthma with (acute) exacerbation Condition: Good Disposition: HOME, SELF-CARE Additional Instructions: Please take the Prednisone as prescribed. Continue to use your nebulizer as prescribed. please keep an eye on your blood sugars. Please increase your Lantus to 40 units if your blood sugar is routinely above 250. Please follow up closely with your doctor this week if possible for reevaluation. Return to the ER immediately if you have difficulty breathing or wheezing not responding to your inhaler. Return to the ER if your blood sugar is continuing to elevate despite your increase in Lantus. Prescriptions: Prednisone [Deltasone 20 mg Tablet] 2 tab PO DAILY 4 Days tablet Referrals: NATALIE PORRAS MD [Primary Care Provider] - 01/31/18
[2018-01-29 02:44] VITALS: BP 124/84
== END 2018-01-29 02:43 | disposition home or self-care (01) ==
LOC: ER
DX: J45.21 Mild intermittent asthma with (acute) exacerbation (principal); R05 Cough; I10 Essential (primary) hypertension; E11.9 Type 2 diabetes mellitus without complications; Z79.84 Long term (current) use of oral hypoglycemic drugs; Z79.4 Long term (current) use of insulin; Z88.8 Allergy status to other drugs, medicaments and biological substances; Z88.5 Allergy status to narcotic agent
CPT/HCPCS: 94640; 99285; 82962; A9270 ×2; J7512; J7620

== ENCOUNTER → 2019-01-22 | Outpatient (CLI) | payer MEDICARE ==
--- NOTE | 2019-01-22 16:02 | WOMENS IMAGING REPORT ---
EXAM DESCRIPTION: BILAT SCREENING MAMMO W/CAD COMPLETED DATE/TIME: 01/22/2019 3:45 pm REASON FOR STUDY: Z12.31 SCREENING MAMMO Z12.31 ENCNTR SCREEN MAMMOGRAM FOR MALIGNANT NEOPLASM OF B RE COMPARISON: 2013 EXAM PARAMETERS: Standard craniocaudal and mediolateral oblique views of each breast recorded using digital acquisition. Read with the assistance of CAD. .[facility] - [employer] Version 9.2 LIMITATIONS: None. FINDINGS: No suspicious masses, suspicious calcifications or architectural distortion. No areas of c oncern. IMPRESSION: Negative MAMMOGRAM. BIRADS 1 BREAST DENSITY: b. There are scattered areas of fibroglandular density. BIRAD: ASSESSMENT: 1 NEGATIVE RECOMMENDATION: ROUTINE SCREENING Please continue yearly bilateral screening mammography/tomosynthesis in January 2020 COMMENT: The patient has been notified of the results by letter per [place] requirements. Additional no tification policies are in place for contacting patient with suspicious or incomplete findings. Quality ID #[id number]: The [employer] recommends an annual screening mammogram for women aged 40 years or over. This facility utilizes a reminder system to ensure that all patients receive reminder letters, and/or direct phone calls for appointments. This includes reminders for routine scr eening mammograms, diagnostic mammograms, or other Breast Imaging Interventions when appropriate. Th is patient will be placed in the appropriate reminder system. TECHNICAL DOCUMENTATION: FINDING NUMBER: (1) ASSESSMENT: (1) JOB ID: [id number] [employer]- All Rights Reserved Reading location - IP/workstation name: [email or web address]
== END ==
LOC: WI 15:25
PROVIDERS: ATTEND Internal Medicine
DX: Z12.31 Encounter for screening mammogram for malignant neoplasm of breast (principal)
CPT/HCPCS: 77067

== ENCOUNTER → 2019-01-30 | Outpatient (CLI) | payer MEDICARE ==
[2019-01-30 13:18] LABS: ALBUMIN 4.3 g/dL (3.5-5.0); ALKALINE PHOSPHATASE 51 U/L (38-126); ANION GAP 11 (5-19); ASPARTATE AMINO TRANSFERASE 23 U/L (14-36); BILIRUBIN,DIRECT 0.2 mg/dL (0.0-0.4); BILIRUBIN,TOTAL 0.4 mg/dL (0.2-1.3); BLOOD UREA NITROGEN 18 mg/dL (7-20); CALCIUM 9.7 mg/dL (8.4-10.2); CARBON DIOXIDE 32 mmol/L (22-30); CHLORIDE 100 mmol/L (98-107); CHOLESTEROL 129.37 mg/dL (0-200); GLUCOSE 92 mg/dL (75-110); POTASSIUM 4.1 mmol/L (3.6-5.0); TOTAL PROTEIN 7.3 g/dL (6.3-8.2); TRIGLYCERIDES 80 mg/dL (<150)
[2019-01-30 13:30] LABS: DIRECT LDL 58 mg/dL (<100)
== END ==
LOC: OD 11:56
PROVIDERS: ATTEND Specialist
DX: E55.9 Vitamin D deficiency, unspecified (principal); K91.2 Postsurgical malabsorption, not elsewhere classified; E66.01 Morbid (severe) obesity due to excess calories; R53.83 Other fatigue
CPT/HCPCS: 36415; 80053; 80061; 82306; 83970; 84443

== ENCOUNTER → 2019-03-13 | Outpatient (CLI) | payer MEDICARE ==
[2019-03-13 13:17] LABS: HEMATOCRIT 38.1 % (36.0-47.0); MEAN CORPUSCULAR HEMOGLOBIN 21.3 pg (27.0-33.4); MEAN CORPUSCULAR HGB CONC 31.5 g/dL (32.0-36.0); MEAN CORPUSCULAR VOLUME 68 fl (80-97); PLATELET COUNT 275 10^3/uL (150-450); RED BLOOD COUNT 5.63 10^6/uL (3.72-5.28); RED CELL DISTRIBUTION WIDTH 18.4 % (11.5-14.0); WHITE BLOOD COUNT 12.9 10^3/uL (4.0-10.5)
[2019-03-13 13:40] LABS: IRON 31.9 ug/dL (37-170)
[2019-03-13 14:27] LABS: FERRITIN 12.3 ng/mL (11.1-264.0)
== END ==
LOC: OD 12:05
PROVIDERS: ATTEND Specialist
DX: D64.9 Anemia, unspecified (principal); R53.83 Other fatigue; E66.01 Morbid (severe) obesity due to excess calories
CPT/HCPCS: 36415; 82728; 83540; 85027

== ENCOUNTER → 2019-11-17 | Outpatient (CLI) | payer MEDICARE ==
[2019-11-17 11:27] LABS: HEMATOCRIT 39.6 % (36.0-47.0); HEMOGLOBIN 12.9 g/dL (12.0-15.5); MEAN CORPUSCULAR HEMOGLOBIN 22.6 pg (27.0-33.4); MEAN CORPUSCULAR HGB CONC 32.6 g/dL (32.0-36.0); MEAN CORPUSCULAR VOLUME 70 fl (80-97); PLATELET COUNT 217 10^3/uL (150-450)
[2019-11-17 11:45] LABS: ALBUMIN 4.5 g/dL (3.5-5.0); ALKALINE PHOSPHATASE 63 U/L (38-126); ANION GAP 7 (5-19); ASPARTATE AMINO TRANSFERASE 22 U/L (14-36); BILIRUBIN,DIRECT 0.3 mg/dL (0.0-0.4); BILIRUBIN,TOTAL 0.6 mg/dL (0.2-1.3); BLOOD UREA NITROGEN 14 mg/dL (7-20); CALCIUM 9.5 mg/dL (8.4-10.2); CARBON DIOXIDE 32 mmol/L (22-30); CHLORIDE 104 mmol/L (98-107); CHOLESTEROL 131.68 mg/dL (0-200); GLUCOSE 91 mg/dL (75-110); IRON 70.3 ug/dL (37-170); POTASSIUM 4.4 mmol/L (3.6-5.0); TOTAL PROTEIN 7.2 g/dL (6.3-8.2); TRIGLYCERIDES 76 mg/dL (<150)
[2019-11-17 11:57] LABS: DIRECT LDL 36 mg/dL (<100)
[2019-11-17 13:06] LABS: FOLATE > 20.00 ng/mL (>2.76)
== END ==
LOC: OD 10:48
PROVIDERS: ATTEND Physician Assistant
DX: E46 Unspecified protein-calorie malnutrition (principal); K91.2 Postsurgical malabsorption, not elsewhere classified; E11.8 Type 2 diabetes mellitus with unspecified complications; E78.2 Mixed hyperlipidemia; R53.83 Other fatigue; E55.9 Vitamin D deficiency, unspecified; E53.1 Pyridoxine deficiency; E53.8 Deficiency of other specified B group vitamins
CPT/HCPCS: 36415; 80053; 80061; 82306; 82607; 82728; 82746; 83036; 83540; 83735; 83970; 84425; 85027